=== PATIENT | male | born 1935 | race Caucasian/White ===

== ENCOUNTER 2017-12-11 10:52 | Inpatient (IN) | payer MEDICARE ==
[2017-12-11 11:16] LABS: #Eosinphils 0.1 thou/uL (0.0-0.7); #Lymphocytes 1.8 thou/uL (1.20-3.40); #Monocytes 0.8 thou/uL (0.11-0.59); #Neutrophils 4.8 thou/uL (1.40-6.50); %Basophils 0.4 % (0.0-1.0); %Eosinophils 1.2 % (0.0-10.0); %Lymphocytes 23.9 % (21.0-51.0); %Neutrophils 64.5 % (42.0-75.0); Hemoglobin 12.8 g/dL (14.0-18.0); Mean Corpuscular HGB CONC 34.2 g/dL (32.0-36.0); Mean Corpuscular Hemoglobin 32.4 pg (27.0-31.0); Mean Corpuscular Volume 94.7 fL (78.0-98.0); Mean Platelet Volume 7.8 fL (7.4-10.4); Platelet Count 354 thou/uL (130-400); RBC Distribution Width 13.3 % (11.5-14.5); Red Blood Cell (RBC) Count 3.94 mill/uL (4.70-6.10); White Blood Cell (WBC) Count 7.5 thou/uL (4.8-10.8)
[2017-12-11 11:33] LABS: ALT (SGPT) 12 U/L (8-55); AST (SGOT) 25 U/L (5-34); Albumin 3.8 g/dL (3.4-4.8); Alkaline Phosphatase 61 U/L (40-150); Anion Gap 14 mmol/L (10-20); BUN (Urea Nitrogen) 53 mg/dL (8.4-25.7); Bilirubin, Total 0.9 mg/dL (0.2-1.2); CK (CPK) 24 U/L (30-200); Calc. Creatinine Clearance 0 mL/min (70-130); Calcium 9.4 mg/dL (7.8-10.44); Carbon Dioxide 25 mmol/L (23-31); Chloride 96 mmol/L (98-107); Estimated GFR-MDRD 21; Globulin 4.7 g/dL (2.4-3.5); Glucose 297 mg/dL (83-110); Potassium 4.2 mmol/L (3.5-5.1); Protein, Total 8.5 g/dL (5.8-8.1); Sodium 131 mmol/L (136-145)
[2017-12-11 11:38] LABS: CKMB 0.5 ng/mL (0-6.6); Troponin I 0.011 ng/mL (< 0.028)
--- NOTE | 2017-12-11 13:06 | RAD ---
PORTABLE CHEST 1 VIEW: DATE: 12/11/17. TIME: 10:32 a.m. HISTORY: Dizziness. FINDINGS: Comparison is made with the exam of 05/25/16. Left-sided pacing device remains in place. The heart is enlarged. The lungs are expanded without lo bar consolidation, pneumothoraces, racihd pulmonary edema, or pleural effusions. IMPRESSION: No acute process. POS: ANDRESSA
[2017-12-11] MEDS ORDERED: Ondansetron HCl/PF 4 MG/2 ML Vial IVP PRN ×2 (14:53→16:12)
[2017-12-11] MEDS ORDERED: Sodium Chloride 0.9% 1,000 ML IV SCH (14:53)
[2017-12-11] MEDS ORDERED: Acetaminophen 325 MG TAB PO PRN (14:53)
[2017-12-11] MEDS ORDERED: Ondansetron ODT 4 MG TAB SL PRN (14:53)
[2017-12-11 15:59] VITALS: BMI 32.0
[2017-12-11] MEDS ORDERED: Ondansetron ODT 4 MG TAB PO PRN (16:12)
[2017-12-11] MEDS ORDERED: Dextrose 5% in Water 1,000 ML IV PRN (16:12)
[2017-12-11] MEDS ORDERED: HumaLOG 300 UNITS/3 ML VIAL SC PRN (16:12)
[2017-12-11] MEDS ORDERED: Dextrose 50% Abboject 50 ML SYRINGE SLOW IVP PRN (16:12)
[2017-12-11] MEDS ORDERED: Rivaroxaban 15 MG TAB PO SCH (17:00)
[2017-12-11] MEDS: Sodium Chloride 0.9% 1,000 ML IV SCH (17:08)
[2017-12-11] MEDS: HumaLOG 300 UNITS/3 ML VIAL SC PRN (17:22)
[2017-12-11 19:13] LABS: Bilirubin Negative (Negative); Blood, Urine Negative (Negative); Clarity CLEAR (Clear); Glucose, Urine (Dipstick) 250 mg/dL (Negative); Leukocyte Negative (Negative); Nitrite Negative (Negative); Protein, Urine (Dipstick) Negative (Neg-Trace); Specific Gravity, Urine 1.017 (1.002-1.036)
[2017-12-11] MEDS: Famotidine 20 MG TAB PO SCH (20:25)
[2017-12-11] MEDS: Melatonin 3 MG TAB PO PRN (20:25)
--- NOTE | 2017-12-11 22:52 | HP ---
DATE OF ADMISSION: 12/11/2017 PRIMARY CARE PHYSICIAN: Rey Lo MD CHIEF COMPLAINT: General weakness and dizziness. HISTORY OF PRESENT ILLNESS: This is an 82-year-old, male, who presents to [facility] complaining of approximately 1-2-day history of increasing wea kness, dizziness especially when standing up or attempting to walk. The patient was recently admitte d to [facility] approximately 2 weeks prior to this evaluation for a 6-day stay for dehydrati on, hyperglycemia and weakness. The patient was discharged home on Wellbutrin and Lexapro and contin ued on his regular medications to include Lasix, spironolactone, metoprolol, levothyroxine, and diabe tic medications. The patient states he has had no energy at home, mainly sitting due to lack of inte rest and general weakness. The patient apparently was also discontinued approximately a week prior t o this evaluation on chronic trazodone. The patient and family have related to increased anxiety and difficulty with sleep patterns. The patient denies any rachid falls or head injury. The patient den ied fever, chills, or increased cough. The patient admits to some decreased appetite, but denies any specific known weight changes. The patient admits to some increased sensation of thirst, but denied vomiting or diarrhea. In the emergency room, the patient underwent general evaluation with receivin g intravenous normal saline x500 mL after evidence of orthostatic hypotension and acute on chronic ki dney disease. The patient was referred to the observation unit for further evaluation. PAST MEDICAL HISTORY: 1. Chronic kidney disease, stage 2-3. 2. Cardiomyopathy. 3. Chronic atrial fibrillation, on chronic anticoagulation with Xarelto. 4. Hypertension. 5. Diabetes mellitus type 2, on oral hypoglycemics. 6. Anxiety disorder. 7. History of DVT. 8. History of skin cancer. PAST SURGICAL HISTORY: 1. Status post cardiac ablation x2. 2. Status post cardioversion x2. 3. Status post right carotid endarterectomy 15-20 years prior to this evaluation. 4. Status post left elbow surgery. 5. Status post pacemaker placement. CURRENT MEDICATIONS: 1. Enteric-coated aspirin 81 mg p.o. daily. 2. Lexapro 5 mg p.o. daily. 3. TriLipix 135 mg p.o. daily. 4. Amaryl 4 mg p.o. b.i.d. 5. Levothyroxine 50 mcg p.o. daily. 6. Metoprolol tartrate 100 mg p.o. b.i.d. 7. Multivitamin 1 tab p.o. daily. 8. Actos 45 mg p.o. daily. 9. Xarelto 15 mg p.o. at bedtime. 10. Spironolactone 25 mg p.o. daily. ALLERGIES: No known drug allergies. FAMILY HISTORY: Nephew with seizure disorder. SOCIAL HISTORY: Patient resides in [place], [place]. Accompanied by his . Retired from [employer]. Smoking history, quitting 6 years prior to this evaluation. No alcohol o r illicit drug use. Ambulates with use of a cane or stick. REVIEW OF SYSTEMS: The following complete review of systems was otherwise negative except as stated per HPI: Constitutional: Weight loss or gain, ability to conduct usual activities. Skin: Rash, it precious. Eyes: Double vision, pain. ENT/Mouth: Nose bleeding, neck stiffness, pain, tenderness. Ca rdiovascular: Palpitations, dyspnea on exertion, orthopnea. Respiratory: Shortness of breath, whee zing, cough, hemoptysis, fever or night sweats. Gastrointestinal: Poor appetite, abdominal pain, he artburn, nausea, vomiting, constipation, or diarrhea. Genitourinary: Urgency, frequency, dysuria, n octuria. Musculoskeletal: Pain, swelling. Neurologic/Psychiatric: Anxiety, depression. Allergy/I mmunologic: Skin rash, bleeding tendency. PHYSICAL EXAMINATION: VITAL SIGNS: Currently, blood pressure 107/61, pulse 80, respiratory rate 18, temperature 97.5 degre es Fahrenheit, O2 saturation 98% on room air. GENERAL APPEARANCE: This is an 82-year-old, male, flat affect, alert, responsive, in no ac kotlik distress. HEENT EXAM: Pupils are equal, round, and reactive to light and accommodation. Extraocular muscles a re intact. No scleral icterus. No conjunctival injection. Nares patent. OP is clear. Oral mucosa dry appearing. NECK: Supple, no cervical adenopathy, no thyromegaly, no carotid bruits, no JVD appreciated. Cervic al spine with full active and passive range of motion. CHEST: Lungs are clear to auscultation bilaterally. CARDIOVASCULAR EXAM: S1, S2, without noted murmur, rub or gallop. ABDOMEN: Obese, soft, nontender, nondistended. Bowel sounds are positive in all four quadrants. Th ere is no hepatosplenomegaly. EXTREMITIES: Warm and dry with fair turgor. No clubbing, cyanosis or asymmetric edema appreciated. Pulses palpable distally at the dorsalis pedis, posterior tibial, and popliteal arteries bilaterally . Capillary refill less than 2 seconds. NEUROLOGIC EXAM: Cranial nerves II-XII are grossly intact. No focal or lateralizing signs appreciat ed. The patient is not observed ambulatory during this exam. PERTINENT LABORATORY AND X-RAY FINDINGS: Sodium 131, potassium 4.2, chloride 96, CO2 of 25, BUN 53, creatinine 2.91, estimated GFR of 21, glucose 297, calcium 9.4. LFTs within normal limits. Troponin I negative x1. BNP 721, previously noted 505 on 05/28/2016. CBC showed a white blood cell count of 7.5, hemoglobin 12.8, hematocrit 37, platelet count 354 with normal differential. Portable chest x- ray dated 12/11/2017 showed no acute cardiopulmonary process. EKG dated 12/11/2017 by my interpretat ion shows 100% pacing with ventricular pacing pacemaker. ASSESSMENT AND PLAN: 1. Orthostatic hypotension. We will place in observation status on the telemetry unit. We will con tinue intravenous normal saline 100 mL per hour. Hold all antihypertensive medications. Likely volu me mediated in conjunction with iatrogenic influence. Continue IV fluids as stated previously and re peat orthostatic vital signs in 24 hours. 2. Acute kidney injury. We will avoid nephrotoxic agents and contrast media. Continue IV fluids as outlined in orthostatic hypotension. Repeat creatinine in the a.m. 3. Generalized weakness. Suspect multifactorial. We will obtain physical therapy evaluation for fu nctional assessment and ambulatory status. Check TSH and A1c level in the a.m. 4. Hyponatremia. Appears chronic when compared with prior sodium values dating back to 2017. Also, component of hyperglycemia. We will continue intravenous normal saline and repeat sodium level in t he a.m. 5. Diabetes mellitus type 2, on oral hypoglycemics. We will continue insulin sliding scale for refl exive coverage. Check A1c level. ADA diet. 6. Chronic kidney disease, stage 3. Avoid nephrotoxic agents and contrast media. Continue serial c reatinine monitoring. 7. Bilateral carotid artery disease. We will continue home regimen to include aspirin 81 mg daily. Left carotid with severe stenosis with recommendations for medical management. 8. Prophylaxis. Sequential compression devices while in bed. Pepcid 20 mg p.o. b.i.d. Physical th erapy evaluation in the a.m. 9. Code status: FULL. Surrogate medical decision maker is patient's spouse.
[2017-12-12] MEDS: Sodium Chloride 0.9% 1,000 ML IV SCH ×3 (03:00→12:33)
[2017-12-12 04:43] LABS: Hemoglobin A1c 8.8 % (4.0-6.0)
[2017-12-12 04:44] LABS: Anion Gap 11 mmol/L (10-20); BUN (Urea Nitrogen) 49 mg/dL (8.4-25.7); Calc. Creatinine Clearance 36 mL/min (70-130); Calcium 8.9 mg/dL (7.8-10.44); Carbon Dioxide 26 mmol/L (23-31); Chloride 103 mmol/L (98-107); Estimated GFR-MDRD 26; Glucose 105 mg/dL (83-110); Potassium 4.1 mmol/L (3.5-5.1); Sodium 136 mmol/L (136-145)
[2017-12-12 04:59] LABS: Band 3 % (5-11); Eosinophils 3 % (0-10); Hemoglobin 12.1 g/dL (14.0-18.0); Lymphocytes 17 % (21-51); MDiff Complete? YES; Mean Corpuscular HGB CONC 33.9 g/dL (32.0-36.0); Mean Corpuscular Hemoglobin 32.3 pg (27.0-31.0); Mean Corpuscular Volume 95.4 fL (78.0-98.0); Mean Platelet Volume 7.7 fL (7.4-10.4); Monocytes 11 % (0-10); Neutrophil 66 % (42-75); PLT Morphology Comment Appears Adequate; Platelet Count 287 thou/uL (130-400); RBC Distribution Width 13.3 % (11.5-14.5); Red Blood Cell (RBC) Count 3.75 mill/uL (4.70-6.10); White Blood Cell (WBC) Count 6.4 thou/uL (4.8-10.8)
[2017-12-12] MEDS: Levothyroxine Sodium 50 MCG TAB PO SCH (05:51)
[2017-12-12] MEDS: Aspirin 81 mg Enteric Coated Tablet PO SCH (08:31)
[2017-12-12] MEDS: Multivitamin W/ Minerals 1 TAB PO SCH (08:31)
[2017-12-12] MEDS: Escitalopram Oxalate 10 mg Tablet PO SCH (08:31)
[2017-12-12] MEDS: Fenofibrate Nanocrystallized 145 MG TAB PO SCH (08:31)
[2017-12-12] MEDS: Famotidine 20 MG TAB PO SCH ×2 (08:31→20:59)
[2017-12-12] MEDS: Rivaroxaban 15 MG TAB PO SCH (08:32)
--- NOTE | 2017-12-12 12:03 | PDOC.PN ---
- Subjective Encounter Start Date: 12/12/17 Encounter Start Time: 11:45 Subjective: f/u for SRINI, dehydration, gen weakness and orthostatic hypotension. -: Feeling better today. Appetite improved. No SOB. - Objective Resuscitation Status: Resuscitation Status FULL:Full Resuscitation MAR Reviewed: Yes Vital Signs & Weight: Vital Signs (12 hours) Temp Pulse Resp BP BP BP BP 12/12/17 08:00 97.2 F L 80 18 147/70 H 126/64 152/66 H 12/12/17 07:26 97.8 F 80 16 12/12/17 03:00 97.8 F 80 16 129/73 Pulse Ox 12/12/17 08:00 97 12/12/17 07:26 12/12/17 03:00 94 L Weight Weight 237 lb 8 oz I&O: 12/11/17 12/12/17 12/13/17 06:59 06:59 06:59 Intake Total 1340 500 Output Total 790 125 Balance 550 375 Result Diagrams: 12/12/17 04:11 12/13/17 05:28 Additional Labs: Accuchecks 12/12/17 12/11/17 12/11/17 10:28 21:03 16:47 POC Glucose 236 H 145 H 249 H Laboratory Tests 12/11/17 12/11/17 12/12/17 11:00 11:00 04:11 Hgb 12.8 L Creatinine 2.91 H Hemoglobin A1c TSH 3rd Generation 2.5677 12/12/17 04:11 Hgb Creatinine Hemoglobin A1c 8.8 H TSH 3rd Generation EKG Reviewed by me: Yes (Tele - V-paced in 80's) Phys Exam - Physical Examination Constitutional: NAD HEENT: PERRLA, sclera anicteric, oral pharynx no lesions Neck: no nodes, no JVD, supple, full ROM Respiratory: no wheezing, no rales, no rhonchi, clear to auscultation bilateral S1, S2 Cardiovascular: RRR, no rub, gallop Gastrointestinal: soft, non-tender, no distention, positive bowel sounds Musculoskeletal: no edema, pulses present Neurological: normal sensation, moves all 4 limbs flat affect Psychiatric: A&O x 3 Skin: no rash, normal turgor, cap refill <2 seconds Dx/Plan (1) SRINI (acute kidney injury) Code(s): N17.9 - ACUTE KIDNEY FAILURE, UNSPECIFIED Status: Acute Comment: Slow improvement with IVF's, continue IVF's another 24-48, avoid nephrotoxic meds and limit contrast exposure (2) Orthostatic hypotension Code(s): I95.1 - ORTHOSTATIC HYPOTENSION Status: Acute Comment: Secondary to dehydation and volume depletion, serial monitoring (3) Generalized weakness Code(s): R53.1 - WEAKNESS Status: Chronic Comment: PT evaluation for functional assessment (4) Hyponatremia Code(s): E87.1 - HYPO-OSMOLALITY AND HYPONATREMIA Status: Acute Comment: Improved, serial Na+ monitoring (5) DM2 (diabetes mellitus, type 2) Status: Chronic Qualifiers: Diabetes mellitus complication status: with hyperglycemia Comment: A1C 8.8, ISS, hold oral hypoglycemics - Plan plan discussed w/ family, PT/OT, director of social services, out of bed/ambulate, DVT proph w/SCDs Stable currently -: Continue IVF's 75ml/h -: PT evaluation for functional assessment -: Rehab screening -: Convert to inpt status due to SRINI * AM lab: BMP
[2017-12-12] MEDS: HumaLOG 300 UNITS/3 ML VIAL SC PRN (13:17)
[2017-12-12] MEDS ORDERED: Sodium Chloride 0.9% 10 ML ONE (20:40)
[2017-12-12] MEDS: Acetaminophen 500 MG TAB PO PRN (20:59)
[2017-12-12] MEDS: Melatonin 3 MG TAB PO PRN (20:59)
[2017-12-13] MEDS: Sodium Chloride 0.9% 1,000 ML IV SCH (00:59)
[2017-12-13] MEDS: Levothyroxine Sodium 50 MCG TAB PO SCH (05:41)
[2017-12-13 06:11] LABS: Anion Gap 11 mmol/L (10-20); BUN (Urea Nitrogen) 40 mg/dL (8.4-25.7); Calc. Creatinine Clearance 46 mL/min (70-130); Carbon Dioxide 23 mmol/L (23-31); Chloride 104 mmol/L (98-107); Estimated GFR-MDRD 34; Glucose 152 mg/dL (83-110); Potassium 4.1 mmol/L (3.5-5.1); Sodium 134 mmol/L (136-145)
[2017-12-13] MEDS: Rivaroxaban 15 MG TAB PO SCH (08:51)
[2017-12-13] MEDS: Escitalopram Oxalate 10 mg Tablet PO SCH (08:51)
[2017-12-13] MEDS: Fenofibrate Nanocrystallized 145 MG TAB PO SCH (08:51)
[2017-12-13] MEDS: Aspirin 81 mg Enteric Coated Tablet PO SCH (08:52)
[2017-12-13] MEDS: Famotidine 20 MG TAB PO SCH (08:52)
[2017-12-13] MEDS: Multivitamin W/ Minerals 1 TAB PO SCH (08:52)
[2017-12-13] MEDS: Acetaminophen 500 MG TAB PO PRN (08:54)
[2017-12-13] MEDS ORDERED: Sodium Chloride 0.9% 1,000 ML IV SCH (11:09)
--- NOTE | 2017-12-13 11:27 | PDOC.PN ---
- Subjective Encounter Start Date: 12/13/17 Encounter Start Time: 11:20 Subjective: f/u for dehydration, SRINI and weakness. Overall feeling much better -: and appetite improved. No lightheadedness. - Objective Resuscitation Status: Resuscitation Status FULL:Full Resuscitation MAR Reviewed: Yes Vital Signs & Weight: Vital Signs (12 hours) Temp Pulse Resp BP Pulse Ox 12/13/17 08:50 97.5 F L 84 18 155/77 H 95 12/13/17 08:00 97.5 F L 84 18 95 12/13/17 04:25 97.6 F 80 20 162/75 H 94 L Weight Weight 242 lb 8 oz I&O: 12/12/17 12/13/17 12/14/17 06:59 06:59 06:59 Intake Total 1340 3323 Output Total 790 875 Balance 550 2448 Result Diagrams: 12/12/17 04:11 12/13/17 05:28 Additional Labs: Accuchecks 12/13/17 12/13/17 12/12/17 11:04 05:19 21:08 POC Glucose 255 H 140 H 220 H 12/12/17 15:47 POC Glucose 203 H Laboratory Tests 12/11/17 12/11/17 12/12/17 11:00 11:00 04:11 Hgb 12.8 L Creatinine 2.91 H Hemoglobin A1c TSH 3rd Generation 2.5677 12/12/17 04:11 Hgb Creatinine Hemoglobin A1c 8.8 H TSH 3rd Generation EKG Reviewed by me: Yes (Tele - V-paced) Phys Exam - Physical Examination Constitutional: NAD HEENT: PERRLA, sclera anicteric, oral pharynx no lesions Neck: no nodes, no JVD, supple, full ROM Respiratory: no wheezing, no rales, no rhonchi, clear to auscultation bilateral S1, S2 Cardiovascular: RRR, no significant murmur, no rub, gallop Gastrointestinal: soft, non-tender, no distention, positive bowel sounds Musculoskeletal: no edema, pulses present Neurological: normal sensation, moves all 4 limbs Psychiatric: A&O x 3 Skin: no rash, normal turgor, cap refill <2 seconds Dx/Plan (1) SRINI (acute kidney injury) Code(s): N17.9 - ACUTE KIDNEY FAILURE, UNSPECIFIED Status: Acute Comment: Resolving, saline lock IVF, avoid nephrotoxic meds and limit contrast exposure (2) Orthostatic hypotension Code(s): I95.1 - ORTHOSTATIC HYPOTENSION Status: Acute Comment: Secondary to dehydation and volume depletion, serial monitoring, improved (3) Generalized weakness Code(s): R53.1 - WEAKNESS Status: Chronic Comment: PT evaluation for functional assessment (4) Hyponatremia Code(s): E87.1 - HYPO-OSMOLALITY AND HYPONATREMIA Status: Acute Comment: Improved, serial Na+ monitoring (5) DM2 (diabetes mellitus, type 2) Status: Chronic Qualifiers: Diabetes mellitus complication status: with hyperglycemia Comment: A1C 8.8, ISS, resume oral hypoglycemics - Plan plan discussed w/ family, PT/OT, oncology social work, out of bed/ambulate, DVT proph w/SCDs Stable overall -: Saline lock IVF -: OOB/ambulate -: Resume home oral hypoglycemics -: CM for SNF options * AM lab: BMP * Edilson d/c in 24h
[2017-12-13] MEDS: HumaLOG 300 UNITS/3 ML VIAL SC PRN ×2 (11:59→17:19)
[2017-12-14] MEDS: Melatonin 3 MG TAB PO PRN ×2 (01:24→20:04)
[2017-12-14] MEDS: Acetaminophen 500 MG TAB PO PRN ×3 (01:24→20:04)
[2017-12-14] MEDS: Levothyroxine Sodium 50 MCG TAB PO SCH (05:47)
[2017-12-14 06:28] LABS: Anion Gap 9 mmol/L (10-20); BUN (Urea Nitrogen) 31 mg/dL (8.4-25.7); Calc. Creatinine Clearance 53 mL/min (70-130); Calcium 8.9 mg/dL (7.8-10.44); Carbon Dioxide 23 mmol/L (23-31); Chloride 106 mmol/L (98-107); Estimated GFR-MDRD 39; Glucose 123 mg/dL (83-110); Sodium 134 mmol/L (136-145)
[2017-12-14] MEDS: Multivitamin W/ Minerals 1 TAB PO SCH (09:22)
[2017-12-14] MEDS: Aspirin 81 mg Enteric Coated Tablet PO SCH (09:22)
[2017-12-14] MEDS: Fenofibrate Nanocrystallized 145 MG TAB PO SCH (09:22)
[2017-12-14] MEDS: Escitalopram Oxalate 10 mg Tablet PO SCH (09:23)
[2017-12-14] MEDS: Rivaroxaban 15 MG TAB PO SCH (09:24)
[2017-12-14] MEDS: Famotidine 20 MG TAB PO SCH (11:21)
--- NOTE | 2017-12-14 16:28 | PDOC.PN ---
- Subjective Encounter Start Date: 12/14/17 Encounter Start Time: 15:05 Subjective: f/u for SRINI, dehydration, weakness. Feeling stronger, better appetite. -: Ambulated with PT in hallways. - Objective Resuscitation Status: Resuscitation Status FULL:Full Resuscitation MAR Reviewed: Yes Vital Signs & Weight: Vital Signs (12 hours) Temp Pulse Resp Pulse Ox 12/14/17 08:10 97.9 F 86 18 97 Weight Weight 246 lb 12.8 oz I&O: 12/13/17 12/14/17 12/15/17 06:59 06:59 06:59 Intake Total 3323 1290 Output Total 875 Balance 2448 1290 Result Diagrams: 12/12/17 04:11 12/14/17 05:47 Additional Labs: Accuchecks 12/14/17 12/14/17 12/13/17 10:56 05:47 20:45 POC Glucose 238 H 117 H 181 H 12/13/17 16:53 POC Glucose 221 H Laboratory Tests 12/11/17 12/11/17 12/12/17 11:00 11:00 04:11 Hgb 12.8 L Creatinine 2.91 H Hemoglobin A1c TSH 3rd Generation 2.5677 12/12/17 04:11 Hgb Creatinine Hemoglobin A1c 8.8 H TSH 3rd Generation EKG Reviewed by me: Yes (Tele - V-paced) Phys Exam - Physical Examination Constitutional: NAD HEENT: PERRLA, sclera anicteric, oral pharynx no lesions Neck: no nodes, no JVD, supple, full ROM Respiratory: no wheezing, no rales, no rhonchi, clear to auscultation bilateral Cardiovascular: RRR, no significant murmur, no rub, gallop Gastrointestinal: soft, non-tender, no distention, positive bowel sounds Musculoskeletal: no edema, pulses present Neurological: normal sensation, moves all 4 limbs Psychiatric: A&O x 3 Skin: no rash, normal turgor, cap refill <2 seconds Dx/Plan (1) SRINI (acute kidney injury) Code(s): N17.9 - ACUTE KIDNEY FAILURE, UNSPECIFIED Status: Acute Comment: Resolving, saline lock IVF, avoid nephrotoxic meds and limit contrast exposure (2) Orthostatic hypotension Code(s): I95.1 - ORTHOSTATIC HYPOTENSION Status: Acute Comment: Secondary to dehydation and volume depletion, serial monitoring, improved (3) Generalized weakness Code(s): R53.1 - WEAKNESS Status: Chronic Comment: PT evaluation for functional assessment (4) Hyponatremia Code(s): E87.1 - HYPO-OSMOLALITY AND HYPONATREMIA Status: Acute Comment: Improved, serial Na+ monitoring (5) DM2 (diabetes mellitus, type 2) Status: Chronic Qualifiers: Diabetes mellitus complication status: with hyperglycemia Comment: A1C 8.8, ISS, resume oral hypoglycemics - Plan plan discussed w/ family, PT/OT, adoption social worker, out of bed/ambulate, DVT proph w/SCDs Stable overall -: OOB/ambulate with PT -: Continue Levothyroxine -: CM assisting with SNF option in [place] -: Continue Xarelto * Likely d/c to SNF in 24h
[2017-12-14] MEDS: HumaLOG 300 UNITS/3 ML VIAL SC PRN (18:29)
[2017-12-15 05:41] LABS: Hemoglobin 11.8 g/dL (14.0-18.0); Platelet Count 231 thou/uL (130-400)
[2017-12-15] MEDS: Levothyroxine Sodium 50 MCG TAB PO SCH (06:00)
[2017-12-15] MEDS: Rivaroxaban 15 MG TAB PO SCH (08:07)
[2017-12-15] MEDS: Famotidine 20 MG TAB PO SCH (08:07)
[2017-12-15] MEDS: Fenofibrate Nanocrystallized 145 MG TAB PO SCH (08:07)
[2017-12-15] MEDS: Escitalopram Oxalate 10 mg Tablet PO SCH (08:07)
[2017-12-15] MEDS: Aspirin 81 mg Enteric Coated Tablet PO SCH (08:07)
[2017-12-15] MEDS: Multivitamin W/ Minerals 1 TAB PO SCH (08:07)
[2017-12-15] MEDS ORDERED: Loperamide HCl 2 MG CAP PO PRN (08:32)
[2017-12-15] MEDS ORDERED: Mag-Al 1200 mg/1200 mg/30 ML UDCUP PO PRN (08:32)
[2017-12-15] MEDS ORDERED: Milk Of Magnesia 30 ML UDCUP PO PRN (08:32)
[2017-12-15] MEDS ORDERED: HYDROcodone/Acetaminophen 5/325 mg Tablet PO PRN (08:32)
[2017-12-15] MEDS ORDERED: Sodium Chloride 0.65% Nasal 44 ML BOT EA NARE PRN (08:32)
[2017-12-15] MEDS ORDERED: Diabetic Tussin 200 MG/10 ML UDCUP PO PRN (08:32)
[2017-12-15] MEDS ORDERED: Eucerin (Mineral Oil/Petrolatum,White) 30 gm Jar TOP PRN (08:32)
[2017-12-15] MEDS ORDERED: Temazepam 15 MG CAP PO PRN (08:32)
[2017-12-15] MEDS ORDERED: Bisacodyl 10 MG SUPP PR PRN (08:32)
[2017-12-15] MEDS ORDERED: Senokot 8.6 MG TAB PO PRN (08:32)
[2017-12-15] MEDS ORDERED: Loratadine 10 MG TAB PO PRN (08:32)
[2017-12-15] MEDS ORDERED: hydrALAZINE 20 MG/ML VIAL SLOW IVP PRN (08:32)
[2017-12-15] MEDS ORDERED: Artificial Tears 18 DROP/0.9 ML EA EYE PRN (08:32)
[2017-12-15] MEDS ORDERED: Chloraseptic Spray 180 ml Bottle PO PRN (08:32)
[2017-12-15] MEDS ORDERED: Metoprolol Tartrate 100 MG TAB PO SCH (09:00)
--- NOTE | 2017-12-15 11:17 | PDOC.PN ---
- Subjective Encounter Start Date: 12/15/17 Encounter Start Time: 08:00 -: old records requested/rev Patient seen and examined. No new complaints. No overnight events - Objective Resuscitation Status: Resuscitation Status FULL:Full Resuscitation MAR Reviewed: Yes Vital Signs & Weight: Vital Signs (12 hours) Temp Pulse Resp BP BP Pulse Ox 12/15/17 08:03 98.1 F 80 18 156/73 H 96 12/15/17 04:00 97.6 F 89 18 133/63 97 Weight Weight 243 lb 4.8 oz I&O: 12/14/17 12/15/17 12/16/17 06:59 06:59 06:59 Intake Total 1290 480 Balance 1290 480 Result Diagrams: 12/15/17 05:26 12/15/17 05:26 Additional Labs: Accuchecks 12/15/17 12/14/17 12/14/17 05:46 21:00 17:00 POC Glucose 128 H 186 H 326 H EKG Reviewed by me: Yes Phys Exam - Physical Examination Constitutional: NAD HEENT: PERRLA, moist MMs, sclera anicteric Neck: no JVD, supple Respiratory: no wheezing, no rales, no rhonchi Cardiovascular: RRR, no significant murmur, no rub Gastrointestinal: soft, non-tender, no distention, positive bowel sounds Musculoskeletal: no edema, pulses present Neurological: non-focal, normal sensation, moves all 4 limbs Lymphatic: no nodes Psychiatric: normal affect, A&O x 3 Skin: no rash, normal turgor Dx/Plan (1) Acute worsening of stage 3 chronic kidney disease Code(s): N18.3 - CHRONIC KIDNEY DISEASE, STAGE 3 (MODERATE) Status: Acute (2) Hyponatremia Code(s): E87.1 - HYPO-OSMOLALITY AND HYPONATREMIA Status: Acute Comment: (3) Orthostatic hypotension Code(s): I95.1 - ORTHOSTATIC HYPOTENSION Status: Acute Comment: Secondary to dehydation and volume depletion, serial monitoring, improved (4) Anxiety and depression Code(s): F41.9 - ANXIETY DISORDER, UNSPECIFIED; F32.9 - MAJOR DEPRESSIVE DISORDER, SINGLE EPISODE, UNSPECIFIED Status: Chronic (5) Carotid arterial disease Code(s): I77.9 - DISORDER OF ARTERIES AND ARTERIOLES, UNSPECIFIED Status: Chronic Qualifiers: Laterality: bilateral Qualified Code(s): I77.9 - Disorder of arteries and arterioles, unspecified Comment: s/p Left CEA (6) Chronic anticoagulation Code(s): Z79.01 - USP (CURRENT) USE OF ANTICOAGULANTS Status: Chronic (7) DM2 (diabetes mellitus, type 2) Status: Chronic Qualifiers: Diabetes mellitus complication status: with hyperglycemia Comment: A1C 8.8, ISS, resume oral hypoglycemics (8) Generalized weakness Code(s): R53.1 - WEAKNESS Status: Chronic Comment: (9) H/O cardiac arrhythmia Code(s): Z86.79 - PERSONAL HISTORY OF OTHER DISEASES OF THE CIRCULATORY SYSTEM Status: Chronic Comment: s/p Ablation and PPM in the past.Marketing Program Manager is Dr. nolan (10) H/O cardiac pacemaker Code(s): Z95.0 - PRESENCE OF CARDIAC PACEMAKER Status: Chronic (11) HLD (hyperlipidemia) Code(s): E78.5 - HYPERLIPIDEMIA, UNSPECIFIED Status: Chronic (12) HTN (hypertension) Code(s): I10 - ESSENTIAL (PRIMARY) HYPERTENSION Status: Chronic Qualifiers: Hypertension type: essential hypertension Qualified Code(s): I10 - Essential (primary) hypertension (13) Hypothyroidism Code(s): E03.9 - HYPOTHYROIDISM, UNSPECIFIED Status: Chronic (14) Liver cirrhosis, alcoholic Code(s): K70.30 - ALCOHOLIC CIRRHOSIS OF LIVER WITHOUT ASCITES Status: Chronic Qualifiers: Ascites presence: without ascites Qualified Code(s): K70.30 - Alcoholic cirrhosis of liver without ascites (15) Moderate tricuspid regurgitation by prior echocardiogram Code(s): I07.1 - RHEUMATIC TRICUSPID INSUFFICIENCY Status: Chronic (16) Obesity (BMI 30.0-34.9) Code(s): E66.9 - OBESITY, UNSPECIFIED Status: Chronic (17) Pulmonary hypertension, moderate to severe Code(s): I27.20 - PULMONARY HYPERTENSION, UNSPECIFIED Status: Chronic (18) Stage C chronic diastolic congestive heart failure Code(s): I50.32 - CHRONIC DIASTOLIC (CONGESTIVE) HEART FAILURE Status: Chronic - Plan cont current plan of care, plan discussed w/ family, PT/OT, social sciences chair * continue following medication * symptomatic treatment as below * stable medically * await placement * discussed with daughter bedside. * start glimipiride and metoprolol today Review of Systems - Review of Systems Eyes: negative: Pain, Vision Change, Conjunctivae Inflammation, Eyelid Inflammation, Redness, Other ENT: negative: Ear Pain, Ear Discharge, Nose Pain, Nose Discharge, Nose Congestion, Mouth Pain, Mouth Swelling, Throat Pain, Throat Swelling, Other Respiratory: negative: Cough, Dry, Shortness of Breath, Hemoptysis, SOB with Excertion, Pleuritic Pain, Sputum, Wheezing Cardiovascular: negative: chest pain, palpitations, orthopnea, paroxysmal nocturnal dyspnea, edema, light headedness, other Gastrointestinal: negative: Nausea, Vomiting, Abdominal Pain, Diarrhea, Constipation, Melena, Hematochezia, Other Genitourinary: negative: Dysuria, Frequency, Incontinence, Hematuria, Retention , Other Musculoskeletal: negative: Neck Pain, Shoulder Pain, Arm Pain, Back Pain, Hand Pain, Leg Pain, Foot Pain, Other Skin: negative: Rash, Lesions, Shahbaz, Bruising, Other - Medications/Allergies Allergies/Adverse Reactions: Allergies Allergy/AdvReac Type Severity Reaction Status Date / Time No Known Allergies Allergy Verified 05/22/16 01:15 Medications: Current Medications Acetaminophen (Tylenol) 1,000 mg PO Q6H PRN PRN Reason: Headache/Fever or Mild Pain Last Admin: 12/14/17 20:04 Dose: 1,000 mg Hydrocodone Bitart/Acetaminophen ([place] 5/325) 1 tab PO Q4H PRN PRN Reason: Moderate Pain (4-6) Al Hydroxide/Mg Hydroxide (Maalox) 15 ml PO Q4H PRN PRN Reason: Heartburn or Indigestion Artificial Tears (Tears Naturale) 0 drop EA EYE PRN PRN PRN Reason: Dry Eyes Aspirin (Ecotrin) 81 mg PO DAILY [facility] Last Admin: 12/15/17 08:07 Dose: 81 mg Bisacodyl (Dulcolax) 10 mg MT DAILYPRN PRN PRN Reason: Constipation Dextrose/Water (Dextrose 50%) 25 gm SLOW IVP PRN PRN PRN Reason: Hypoglycemia Escitalopram Oxalate (Lexapro) 5 mg PO DAILY [facility] Last Admin: 12/15/17 08:07 Dose: 5 mg Famotidine (Pepcid) 20 mg PO 0900 [facility] Last Admin: 12/15/17 08:07 Dose: 20 mg Fenofibrate (Tricor) 145 mg PO DAILY [facility] Last Admin: 12/15/17 08:07 Dose: 145 mg Glimepiride (Amaryl) 4 mg PO QAM[facility] Glucagon (Glucagon) 1 mg IM PRN PRN PRN Reason: Hypoglycemia Guaifenesin (Robitussin Sf) 200 mg PO Q4H PRN PRN Reason: Cough Hydralazine HCl (Apresoline) 10 mg SLOW IVP Q4H PRN PRN Reason: Systolic BP > 180 Dextrose/Water (D5w) 1,000 mls @ 0 mls/hr IV .Q0M PRN PRN Reason: Hypoglycemia Insulin Human Lispro (Humalog) 0 units SC .MILD SLIDING SCALE PRN PRN Reason: Mild Correctional Scale Last Admin: 12/14/17 18:29 Dose: 5 unit Insulin Human Lispro (Humalog) 0 units SC .BEDTIME SLIDING SC PRN PRN Reason: Bedtime Correctional Scale Last Admin: 12/12/17 21:19 Dose: 2 unit Iron/Minerals/Multivitamins (Theragran M) 1 tab PO DAILY [facility] Last Admin: 12/15/17 08:07 Dose: 1 tab Levothyroxine Sodium (Synthroid) 50 mcg PO 0600 [facility] Last Admin: 12/15/17 06:00 Dose: 50 mcg Loperamide HCl (Imodium) 2 mg PO PRN PRN PRN Reason: Diarrhea/Loose Stools Loratadine (Claritin) 10 mg PO DAILYPRN PRN PRN Reason: Sinus Symptoms Magnesium Hydroxide (Milk Of Magnesium) 30 ml PO DAILYPRN PRN PRN Reason: Constipation Melatonin (Melatonin) 3 mg PO HSPRN PRN PRN Reason: Insomnia Last Admin: 12/14/17 20:04 Dose: 3 mg Metoprolol Tartrate (Lopressor) 100 mg PO BID [facility] Last Admin: 12/15/17 08:54 Dose: 100 mg Mineral Oil/White Petrolatum (Eucerin Cream) 0 gm TOP BIDPRN PRN PRN Reason: Dry Skin Ondansetron HCl (Zofran Odt) 4 mg PO Q6H PRN PRN Reason: Nausea/Vomiting Ondansetron HCl (Zofran) 4 mg IVP Q6H PRN PRN Reason: Nausea/Vomiting Phenol (Chloraseptic [place] 180 Ml Bot) 0 ml PO PRN PRN PRN Reason: Sore Throat Rivaroxaban (Xarelto) 15 mg PO 0900 [facility] Last Admin: 12/15/17 08:07 Dose: 15 mg Senna (Senokot) 2 tab PO HSPRN PRN PRN Reason: Constipation Sodium Chloride ([place] Nasal [place] 0.65%) 0 ml EA NARE QIDPRN PRN PRN Reason: Nasal Congestion Sodium Chloride (Flush - Normal Saline) 10 ml IVF Q12HR [facility] Last Admin: 12/15/17 08:55 Dose: 10 ml Sodium Chloride (Flush - Normal Saline) 10 ml IVF PRN PRN PRN Reason: Saline Flush Temazepam (Restoril) 15 mg PO HSPRN PRN PRN Reason: Insomnia
[2017-12-15] MEDS: HumaLOG 300 UNITS/3 ML VIAL SC PRN (11:51)
[2017-12-15 11:55] VITALS: TEMP 97.7
[2017-12-15 16:01] VITALS: BP 145/69
--- NOTE | 2017-12-15 17:44 | DIS ---
DATE OF ADMISSION: 12/12/2017 DATE OF DISCHARGE: 12/15/2017 PRIMARY CARE PHYSICIAN: Rey Lo MD DISCHARGE DISPOSITION: Home with home with home health. PRIMARY DISCHARGE DIAGNOSES: 1. Acute on chronic kidney failure, baseline chronic kidney disease stage 3. 2. Hyponatremia. 3. Orthostatic hypotension. SECONDARY DISCHARGE DIAGNOSES: Anxiety and depression, carotid artery disease with carotid endartere ctomy, chronic anticoagulation with Xarelto, diabetes type 2, history of cardiac arrhythmia, history of cardiac pacemaker, hypertension, dyslipidemia, hypothyroidism, moderate tricuspid regurgitation, o besity with BMI 33, moderate pulmonary hypertension, chronic diastolic congestive heart failure stage C. PRIMARY PROCEDURE/OPERATION: None. RADIOLOGICAL INVESTIGATION: A chest x-ray which was unremarkable. SIGNIFICANT LABORATORY DATA: Hemoglobin 6.4, hemoglobin 11.8, platelet 231. Sodium 134, potassium 4 .0, BUN 31, creatinine 1.51, calcium 8.9, AST 25, ALT 12, alkaline phosphatase 61. Cardiac enzymes n egative. BNP 721. Urinalysis normal. DISCHARGE MEDICATIONS: Aspirin 81 mg p.o. daily, Lexapro 5 mg p.o. daily, Trilipix 135 mg p.o. daily , Levoxyl 50 mcg p.o. daily, Lopressor 100 mg p.o. b.i.d., Centrum Silver 1 tablet p.o. daily, Actos 45 mg p.o. daily, Xarelto 15 mg p.o. daily, Amaryl 4 mg p.o. daily. CONTRAINDICATIONS: None. CODE STATUS: FULL CODE. INPATIENT CONSULTANTS: None. ALLERGIES: No known drug allergy. DISCHARGE PLAN: Post hospital, the patient is planned for discharge to home with home health. Subse quently, the patient will follow up with primary care physician. HOSPITAL COURSE: An 82-year-old male with above-mentioned medical problem who was admitted by Dr. Iram thomas on 12/11/2017. Please see his H&P for further detail. This patient presented to emergency room w ith generalized weakness and dizziness. The patient clinically appeared dehydrated. He had acute on chronic kidney failure. He was given gentle IV fluid and his renal function improved towards normal . The patient's home medication was continued while in hospital. The patient required orthopedic physical therapist apy, occupational therapy while in hospital, Initially, he was very weak and he was needing placemen t and that is why with help of rn case manager hospice, we were arranging [facility] home. His insurance d eclined his placement. By the the end of discharge, the patient was already doing very well. He wal ked with physical therapy today about 220 feet. His renal function is also back to baseline. His vital signs are stable. He is on room air. The patient is seen and examined at bedside today. I have reviewed old record. I have spoken with t he family member and updated the plan. I have spoken with the rn case manager hospice about his discharge plann ing. Discharge medication reconciliation done. All new medication prescription sent to his pharmacy . Only we made changes glimepiride changed to once a daily rather than twice daily. Rest of medicat ion was continued as per previous. The patient is seen and examined at bedside today. Please see my progress note from today for furthe r details. Total time spent on discharge day 31 minutes.
[2017-12-16] MEDS ORDERED: Glimepiride 4 MG TAB PO SCH (08:00)
== END 2017-12-15 18:09 | disposition home health service (06) | DRG 683 ==
LOC: ERS 10:52 → 2SW 13:19 → OBSVTOIN 12-12 12:00 → 2NO 12-12 19:38
PROVIDERS: ADMIT Family Medicine; ATTEND Family Medicine
DX: N17.9 Acute kidney failure, unspecified (principal); E87.1 Hypo-osmolality and hyponatremia; I13.0 Hypertensive heart and chronic kidney disease with heart failure and stage 1 through stage 4 chronic kidney disease, or unspecified chronic kidney disease; I50.32 Chronic diastolic (congestive) heart failure; E11.22 Type 2 diabetes mellitus with diabetic chronic kidney disease; E11.65 Type 2 diabetes mellitus with hyperglycemia; E11.9 Type 2 diabetes mellitus without complications; I95.1 Orthostatic hypotension; F41.9 Anxiety disorder, unspecified; F32.9 Major depressive disorder, single episode, unspecified; E78.5 Hyperlipidemia, unspecified; E03.9 Hypothyroidism, unspecified; N18.3 Chronic kidney disease, stage 3 (moderate); I07.1 Rheumatic tricuspid insufficiency; I27.20 Pulmonary hypertension, unspecified; E86.0 Dehydration; E66.9 Obesity, unspecified; Z68.33 Body mass index [BMI] 33.0-33.9, adult; Z79.84 Long term (current) use of oral hypoglycemic drugs; Z79.82 Long term (current) use of aspirin; Z79.01 Long term (current) use of anticoagulants; Z79.899 Other long term (current) drug therapy; Z95.0 Presence of cardiac pacemaker
CPT/HCPCS: 36415; 36416; 71045; 80048; 80053; 81003; 82550; 82553; 82565; 83036; 83880; 84443; 84484; 85007; 85014; 85018; 85025; 85027; 85049; 93005; 96360; A4216; G8978-GP-CI; G8979-GP-CI; G8980-GP-CI; G8987-GO-CI; G8988-GO-CI; G8989-GO-CI

== ENCOUNTER 2018-01-11 10:06 | Outpatient (CLI) | payer MEDICARE ==
--- NOTE | 2018-01-11 12:12 | RAD ---
CHEST TWO VIEWS: History: Dyspnea. Comparison: 12-11-17 FINDINGS: Left sided transvenous pacemaker with leads positioned in the right atrium, right ventricle, and tierra nary sinus. There is atherosclerosis of the aorta. Heart is enlarged. The pulmonary vessels are withi n normal limits. Costophrenic angles are clear. No masses or consolidation. No pneumothorax or osseo us abnormalities. IMPRESSION: 1. No acute cardiopulmonary process. 2. Atherosclerosis. POS: ANDRESSA
== END 2018-01-11 10:07 | disposition home or self-care (01) ==
LOC: RAD 10:06
PROVIDERS: ATTEND Internal Medicine
DX: R06.00 Dyspnea, unspecified (principal); I70.0 Atherosclerosis of aorta
CPT/HCPCS: 71046

== ENCOUNTER 2018-01-19 13:25 | Outpatient (CLI) | payer MEDICARE | END 2018-01-19 13:26 | disposition home or self-care (01) | LOC: CP 13:25 | PROVIDERS: ATTEND Internal Medicine | DX: R06.09 Other forms of dyspnea (principal) | CPT/HCPCS: 94060; 94727; 94729 ==

== ENCOUNTER 2018-02-02 20:30 | Outpatient (CLI) | payer MEDICARE | END 2018-02-02 20:31 | disposition home or self-care (01) | LOC: SLEEPLAB 20:30 | PROVIDERS: ATTEND Internal Medicine | DX: G47.33 Obstructive sleep apnea (adult) (pediatric) (principal); R51 Headache; K21.9 Gastro-esophageal reflux disease without esophagitis; R06.83 Snoring; R35.1 Nocturia; I10 Essential (primary) hypertension; E11.9 Type 2 diabetes mellitus without complications; E66.9 Obesity, unspecified; Z68.32 Body mass index [BMI] 32.0-32.9, adult | CPT/HCPCS: 95811 ==

== ENCOUNTER 2018-04-03 17:52 | Inpatient (IN) | payer MEDICARE ==
--- NOTE | 2018-04-03 20:27 | RAD ---
PORTABLE CHEST: History: Dyspnea. Comparison: 12-11-17 FINDINGS: Mild cardiomegaly. Dual-lead pacemaker device is unchanged. Lungs show no infiltrate or vascular radha estion. IMPRESSION: No evidence of acute process or interval change. POS: ANNE
[2018-04-03 20:29] LABS: #Eosinphils 0.2 thou/uL (0.0-0.7); #Lymphocytes 1.2 thou/uL (1.20-3.40); #Monocytes 0.6 thou/uL (0.11-0.59); %Basophils 0.7 % (0.0-1.0); %Eosinophils 2.7 % (0.0-10.0); %Lymphocytes 19.7 % (21.0-51.0); %Monocytes 9.6 % (0.0-10.0); %Neutrophils 67.4 % (42.0-75.0); Hemoglobin 8.4 g/dL (14.0-18.0); Mean Corpuscular HGB CONC 34.4 g/dL (32.0-36.0); Mean Corpuscular Hemoglobin 33.5 pg (27.0-31.0); Mean Corpuscular Volume 97.5 fL (78.0-98.0); Mean Platelet Volume 8.7 fL (7.4-10.4); Platelet Count 255 thou/uL (130-400); Red Blood Cell (RBC) Count 2.49 mill/uL (4.70-6.10); White Blood Cell (WBC) Count 5.9 thou/uL (4.8-10.8)
[2018-04-03 20:50] LABS: ALT (SGPT) 7 U/L (8-55); AST (SGOT) 14 U/L (5-34); Albumin 3.4 g/dL (3.4-4.8); Alkaline Phosphatase 55 U/L (40-150); Anion Gap 11 mmol/L (10-20); BUN (Urea Nitrogen) 51 mg/dL (8.4-25.7); Bilirubin, Total 0.5 mg/dL (0.2-1.2); CK (CPK) 34 U/L (30-200); Calc. Creatinine Clearance 0 mL/min (70-130); Calcium 8.7 mg/dL (7.8-10.44); Carbon Dioxide 25 mmol/L (23-31); Chloride 102 mmol/L (98-107); Estimated GFR-MDRD 27; Globulin 3.3 g/dL (2.4-3.5); Glucose 257 mg/dL (83-110); Lipase 18 U/L (8-78); Potassium 4.1 mmol/L (3.5-5.1); Protein, Total 6.7 g/dL (5.8-8.1); Sodium 134 mmol/L (136-145)
[2018-04-03 20:53] LABS: CKMB 1.2 ng/mL (0-6.6)
[2018-04-03] MEDS ORDERED: Furosemide 40 MG/4 ML VIAL ONE (21:23)
[2018-04-03] MEDS ORDERED: Nitroglycerin 2% Ointment 1 INCH/1 GM Packet ONE (21:23)
[2018-04-03 22:54] LABS: Bilirubin Negative (Negative); Blood, Urine Negative (Negative); Clarity CLEAR (Clear); Glucose, Urine (Dipstick) >=1000 mg/dL (Negative); Leukocyte Negative (Negative); Nitrite Negative (Negative); Protein, Urine (Dipstick) Negative (Neg-Trace); Specific Gravity, Urine 1.023 (1.002-1.036); pH, Urine 5.5 (5.0-9.0)
[2018-04-03 23:40] LABS: Troponin I 0.046 ng/mL (< 0.028)
[2018-04-04] MEDS ORDERED: Dextrose 50% Abboject 50 ML SYRINGE SLOW IVP PRN (03:07)
[2018-04-04] MEDS ORDERED: Senokot S 8.6-50 MG TAB PO PRN (03:07)
[2018-04-04] MEDS ORDERED: Ondansetron ODT 4 MG TAB PO PRN (03:07)
[2018-04-04] MEDS ORDERED: Dextrose 5% in Water 1,000 ML IV PRN (03:07)
[2018-04-04] MEDS ORDERED: Guaifenesin DM 100-10/5 ML UDCUP PO PRN (03:07)
[2018-04-04] MEDS ORDERED: Acetaminophen 325 MG TAB PO PRN (03:07)
[2018-04-04] MEDS ORDERED: Ondansetron PF 4 MG/2 ML Vial IVP PRN (03:07)
[2018-04-04] MEDS ORDERED: Bisacodyl 5 MG TAB PO PRN (03:07)
[2018-04-04 03:09] LABS: Troponin I 0.039 ng/mL (< 0.028)
[2018-04-04 05:05] LABS: #Eosinphils 0.1 thou/uL (0.0-0.7); #Lymphocytes 1.1 thou/uL (1.20-3.40); #Monocytes 0.6 thou/uL (0.11-0.59); #Neutrophils 3.9 thou/uL (1.40-6.50); %Basophils 0.3 % (0.0-1.0); %Eosinophils 2.4 % (0.0-10.0); %Lymphocytes 18.8 % (21.0-51.0); %Monocytes 10.3 % (0.0-10.0); %Neutrophils 68.2 % (42.0-75.0); Hemoglobin 7.5 g/dL (14.0-18.0); Mean Corpuscular HGB CONC 32.9 g/dL (32.0-36.0); Mean Corpuscular Hemoglobin 32.2 pg (27.0-31.0); Mean Corpuscular Volume 97.7 fL (78.0-98.0); Mean Platelet Volume 9.4 fL (7.4-10.4); Platelet Count 245 thou/uL (130-400); RBC Distribution Width 14.3 % (11.5-14.5); Red Blood Cell (RBC) Count 2.34 mill/uL (4.70-6.10); White Blood Cell (WBC) Count 5.7 thou/uL (4.8-10.8)
[2018-04-04 05:25] LABS: Albumin 3.1 g/dL (3.4-4.8); Anion Gap 13 mmol/L (10-20); BUN (Urea Nitrogen) 56 mg/dL (8.4-25.7); BUN/Creatinine Ratio 25.11; Calc. Creatinine Clearance 41 mL/min (70-130); Calcium 8.5 mg/dL (7.8-10.44); Carbon Dioxide 23 mmol/L (23-31); Chloride 101 mmol/L (98-107); Estimated GFR-MDRD 28; Glucose 314 mg/dL (83-110); Phosphorus 3.2 mg/dL (2.3-4.7); Potassium 4.2 mmol/L (3.5-5.1); Sodium 133 mmol/L (136-145)
[2018-04-04 05:26] LABS: Digoxin Less than 0.15 ng/mL (0.8-2.0)
[2018-04-04] MEDS: HumaLOG 300 UNITS/3 ML VIAL SC PRN ×3 (06:08→17:49)
[2018-04-04] MEDS: Levothyroxine Sodium 50 MCG TAB PO SCH (06:09)
[2018-04-04] MEDS: Furosemide 40 MG/4 ML VIAL SLOW IVP SCH ×2 (06:09→14:54)
[2018-04-04] MEDS ORDERED: Eucerin (Mineral Oil/Petrolatum,White) 30 gm Jar TOP PRN (07:34)
[2018-04-04] MEDS ORDERED: Loratadine 10 MG TAB PO PRN (07:34)
[2018-04-04] MEDS ORDERED: Cepastat Lozenges 1 LOZ PO PRN (07:34)
[2018-04-04] MEDS ORDERED: Nitroglycerin 0.4 MG TAB (25 Tab Bottle) SL PRN (07:34)
[2018-04-04] MEDS ORDERED: Diabetic Tussin 200 MG/10 ML UDCUP PO PRN (07:34)
[2018-04-04] MEDS ORDERED: Loperamide HCl 2 MG CAP PO PRN (07:34)
[2018-04-04] MEDS ORDERED: Sodium Chloride 0.65% Nasal 44 ML BOT EA NARE PRN (07:34)
[2018-04-04] MEDS ORDERED: hydrALAZINE 20 MG/ML VIAL SLOW IVP PRN (07:34)
[2018-04-04] MEDS ORDERED: Artificial Tears 18 DROP/0.9 ML EA EYE PRN (07:34)
--- NOTE | 2018-04-04 08:29 | HP ---
CHIEF COMPLAINT: Shortness of breath and generalized weakness. HISTORY OF PRESENT ILLNESS: This is an 83-year-old male with past medical history of CHF; atrial fibrillation, status post pacemaker; diabetes mellitus type 2; hypertension; obesity; renal insufficiency, presenting with shortness of breath and generalized weakness. Per , the patient has been having episodes of shortness of breath and generalized weakness, which has worsened in the past couple of days. The patient states that he has had history of shortness of breath for a while, but now it has worsened and that prompted him to come to the ED. Before the patient was actually brought to our ED, the patient went to [place] and blood work was done, which showed the patient was in acute CHF exacerbation. Therefore, the patient was recommended to come to [facility] to be further evaluated and treated. Of note, the patient has been in the hospital before and in 2017, the patient had an echo done, which showed the patient's ejection fraction was above 60%. The patient was also recently seen in our hospital and was admitted on 12/12/2017, was discharged on 12/15/2017. The patient was here during that time for weakness and dizziness, and the patient appeared to be dehydrated. The patient had acute on chronic kidney failure during that time, and the patient was managed and the patient improved and the patient was discharged. REVIEW OF SYSTEMS: Positive for weakness and shortness of breath, otherwise has been documented in the HPI. All other systems were reviewed and are negative. PAST MEDICAL HISTORY: Obesity, hypertension, diabetes mellitus type 2, renal insufficiency, atrial fibrillation, congestive heart failure, status post pacemaker. FAMILY HISTORY: Reviewed and noncontributory. PAST SURGICAL HISTORY: Cardiac ablation, cardioversion, status post pacemaker, left elbow surgery. PSYCHIATRIC HISTORY: Anxiety and depression. SOCIAL HISTORY: The patient denies any alcohol use. Denies any illicit drug use. The patient was a former tobacco smoker, the patient quit more than 10 years ago. ALLERGIES: NO KNOWN DRUG ALLERGIES. CURRENT MEDICATIONS: The patient takes: 1. Glimepiride 4 mg b.i.d. 2. Actos 45 mg daily. 3. Metoprolol 100 mg b.i.d. 4. Furosemide 40 mg daily. 5. Multaq 400 mg. 6. Xarelto 10 mg. 7. Lexapro. 8. Levothyroxine. 9. Fenofibrate. 10. Aspirin. PHYSICAL EXAMINATION: VITAL SIGNS: The patient's blood pressure is 138/73, pulse of 80, respiratory rate of 16, temperature of 96.6, O2 saturation of 97. GENERAL: The patient is lying in bed, does not appear to be in any acute distress. The patient is speaking to me in full sentences. HEENT: Normocephalic, atraumatic. Pupils are equally round and reactive to light. Extraocular movements are intact. No scleral icterus. No conjunctival pallor. Mucous membranes are moist. NECK: Trachea is midline. Full range of motion. No JVD. No carotid bruits. LUNGS: Clear to auscultation bilaterally at the anterior lung barrios. At the posterior lung barrios, there seemed to be mild crackles at the lower bases. CARDIAC: Positive S1 and S2. Irregularly irregular. ABDOMEN: No peritoneal signs. Positive bowel sounds can be appreciated. Obese abdomen. Soft, nontender, nondistended. EXTREMITIES: The patient has 5/5 upper extremity strength. Good pulses bilaterally at the upper extremities and lower extremities the patient has 2+ pitting edema as noted. Good strength of the lower extremities and good pulses bilaterally. NEUROLOGIC: Cranial nerves 2 through 12 grossly intact. No neurologic deficits noted. SKIN: Warm, dry, and intact. DIAGNOSTIC STUDIES: A 12-lead EKG shows paced rhythm. Imaging of the chest showed pulmonary congestion, pacemaker, and heart failure. LABORATORY DATA: WBC is 5.9, hemoglobin is 8.4, hematocrit is 24.3, platelet count is 255. Sodium is 134, potassium is 4.1, chloride is 102, carbon dioxide of 25, anion gap of 11, BUN is 51, creatinine is 2.30, GFR is 27, glucose 257. Troponin 0.046 and 0.039. BNP is 820.1. Urinalysis is negative. ASSESSMENT AND PLAN: This is an 83-year-old male being admitted for: 1. Acute diastolic heart failure. At this point, the patient has been given Lasix. We have consulted Cardiology. We will follow up with Cardiology regarding any current recommendations. We will continue to monitor the patient and continue current management. 2. Acute on chronic renal failure. At this point, we have consulted Nephrology regarding any further treatment. We will defer management to Nephrology Team. 3. History of diabetes mellitus type 2. Currently, the patient's blood sugars are uncontrolled. We will continue the patient on insulin sliding scale. We will try to control the patient's blood sugar and manage the patient's blood sugar between 140 to 180. 4. Hypertension. At this point, we will monitor the patient's blood pressure closely and we will give the patient blood pressure medication as needed. 5. Morbid obesity. 6. Atrial fibrillation. We will continue the patient on his home regimen. We will follow up with Cardiology regarding any further recommendations. 7. Deep venous thrombosis and gastrointestinal prophylaxis. Job ID: [id number]
[2018-04-04] MEDS ORDERED: Non-Formulary Item 1 EACH (Multivit-Min/Fa/Lycopen/Lutein [Centrum Silver Tablet] 1 TAB) PO SCH (09:00)
[2018-04-04] MEDS ORDERED: Famotidine/PF 20 mg/2ml Vial SLOW IVP SCH (09:00)
[2018-04-04] MEDS: Metoprolol Tartrate 100 MG TAB PO SCH ×2 (10:00→20:33)
[2018-04-04] MEDS: Glimepiride 4 MG TAB PO SCH ×2 (10:00→20:34)
[2018-04-04] MEDS: Famotidine 20 MG TAB PO SCH (10:00)
[2018-04-04] MEDS: Dronedarone HCl 400 MG TAB PO SCH ×2 (10:00→20:33)
[2018-04-04] MEDS: Rivaroxaban 15 MG TAB PO SCH (10:01)
[2018-04-04] MEDS: Pioglitazone HCl 45 MG TAB PO SCH (10:01)
[2018-04-04] MEDS: Multivitamin W/ Minerals 1 TAB PO SCH (10:01)
--- NOTE | 2018-04-04 12:05 | PDOC.PN ---
- Subjective Encounter Start Date: 04/04/18 Encounter Start Time: 09:30 -: old records requested/rev Patient seen and examined. No new complaints. No overnight events pt feels better, now has less dyspnea, has leg edema - Objective Resuscitation Status - Order Detail: 04/04/18 03:07 Resuscitation Status Routine Resuscitation Status: FULL: Full Resuscitation MAR Reviewed: Yes Vital Signs & Weight: Vital Signs (12 hours) Temp Pulse Resp BP Pulse Ox 04/04/18 07:09 97.5 F L 82 24 H 134/64 96 04/04/18 03:51 97.4 F L 80 20 101/50 L 96 Weight Weight 255 lb I&O: 04/03/18 04/04/18 04/05/18 06:59 06:59 06:59 Output Total 950 Balance -950 Result Diagrams: 04/04/18 04:39 04/04/18 04:39 Additional Labs: Accuchecks 04/04/18 04/04/18 11:04 06:08 POC Glucose 178 H 324 H Phys Exam - Physical Examination Constitutional: NAD HEENT: PERRLA, moist MMs, sclera anicteric Neck: supple, full ROM elevated JVD Respiratory: no wheezing, no rales, no rhonchi Cardiovascular: RRR, no rub SM+ lower left sternal border Gastrointestinal: soft, non-tender, no distention, positive bowel sounds Musculoskeletal: pulses present, edema present Neurological: non-focal, normal sensation, moves all 4 limbs Psychiatric: normal affect, A&O x 3 Skin: no rash, normal turgor Dx/Plan (1) Acute on chronic diastolic ACC/AHA stage C congestive heart failure Code(s): I50.33 - ACUTE ON CHRONIC DIASTOLIC (CONGESTIVE) HEART FAILURE Status : Acute (2) Acute worsening of stage 3 chronic kidney disease Code(s): N18.3 - CHRONIC KIDNEY DISEASE, STAGE 3 (MODERATE) Status: Acute (3) Elevated troponin Code(s): R74.8 - ABNORMAL LEVELS OF OTHER SERUM ENZYMES Status: Acute (4) Anxiety and depression Code(s): F41.9 - ANXIETY DISORDER, UNSPECIFIED; F32.9 - MAJOR DEPRESSIVE DISORDER, SINGLE EPISODE, UNSPECIFIED Status: Chronic (5) Carotid arterial disease Code(s): I77.9 - DISORDER OF ARTERIES AND ARTERIOLES, UNSPECIFIED Status: Chronic Comment: with history of Left CEA (6) Chronic anticoagulation Code(s): Z79.01 - 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 nolan (9) H/O cardiac pacemaker Code(s): Z95.0 - PRESENCE OF CARDIAC PACEMAKER Status: Chronic (10) HLD (hyperlipidemia) Code(s): E78.5 - HYPERLIPIDEMIA, UNSPECIFIED Status: Chronic (11) HTN (hypertension) Code(s): I10 - ESSENTIAL (PRIMARY) HYPERTENSION Status: Chronic Qualifiers: (12) Hypothyroidism Code(s): E03.9 - HYPOTHYROIDISM, UNSPECIFIED Status: Chronic (13) Liver cirrhosis, alcoholic Code(s): K70.30 - ALCOHOLIC CIRRHOSIS OF LIVER WITHOUT ASCITES Status: Chronic Qualifiers: (14) Moderate tricuspid regurgitation by prior echocardiogram Code(s): I07.1 - RHEUMATIC TRICUSPID INSUFFICIENCY Status: Chronic (15) Obesity (BMI 30.0-34.9) Code(s): E66.9 - OBESITY, UNSPECIFIED Status: Chronic (16) Pulmonary hypertension, moderate to severe Code(s): I27.20 - PULMONARY HYPERTENSION, UNSPECIFIED Status: Chronic - Plan cont current plan of care, plan discussed w/ family * medication reviewed as below * symptomatic treatment * continue IV lasix * renal function improving * discussed with family * monitor labs. * home medication reconciled Review of Systems - Review of Systems Eyes: negative: Pain, Vision Change, Conjunctivae Inflammation, Eyelid Inflammation, Redness, Other ENT: negative: Ear Pain, Ear Discharge, Nose Pain, Nose Discharge, Nose Congestion, Mouth Pain, Mouth Swelling, Throat Pain, Throat Swelling, Other Respiratory: Shortness of Breath, SOB with Excertion. negative: Cough, Dry, Hemoptysis, Pleuritic Pain, Sputum, Wheezing Cardiovascular: edema. negative: chest pain, palpitations, orthopnea, paroxysmal nocturnal dyspnea, light headedness, other Gastrointestinal: negative: Nausea, Vomiting, Abdominal Pain, Diarrhea, Constipation, Melena, Hematochezia, Other Genitourinary: negative: Dysuria, Frequency, Incontinence, Hematuria, Retention , Other Musculoskeletal: negative: Neck Pain, Shoulder Pain, Arm Pain, Back Pain, Hand Pain, Leg Pain, Foot Pain, Other Skin: negative: Rash, Lesions, Shahbaz, Bruising, Other - Medications/Allergies Allergies/Adverse Reactions: Allergies Allergy/AdvReac Type Severity Reaction Status Date / Time No Known Allergies Allergy Verified 04/03/18 23:31 Medications: Current Medications Acetaminophen (Tylenol) 650 mg PO Q4H PRN PRN Reason: Headache/Fever/Mild Pain (1-3) Hydrocodone Bitart/Acetaminophen ([place] 5/325) 1 tab PO Q4H PRN PRN Reason: Moderate Pain (4-6) Albuterol/Ipratropium (Duoneb) 3 ml NEB [id number] PRN PRN Reason: SOB &/or Wheezing Artificial Tears (Tears Naturale) 2 drop EA EYE PRN PRN PRN Reason: Dry Eyes Aspirin (Ecotrin) 81 mg PO HS [facility] Bisacodyl (Dulcolax) 10 mg PO DAILYPRN PRN PRN Reason: Constipation Dextrose/Water (Dextrose 50%) 25 gm SLOW IVP PRN PRN PRN Reason: Hypoglycemia Dronedarone (Multaq) 400 mg PO BID [facility] Last Admin: 04/04/18 10:00 Dose: 400 mg Escitalopram Oxalate (Lexapro) 5 mg PO HS [facility] Famotidine (Pepcid) 20 mg PO DAILY [facility] Last Admin: 04/04/18 10:00 Dose: 20 mg Fenofibrate (Tricor) 145 mg PO HS [facility] Furosemide (Lasix) 40 mg SLOW IVP 0600,1400 [facility] Last Admin: 04/04/18 06:09 Dose: 40 mg Glimepiride (Amaryl) 4 mg PO BID [facility] Last Admin: 04/04/18 10:00 Dose: 4 mg Glucagon (Glucagon) 1 mg IM PRN PRN PRN Reason: Hypoglycemia Guaifenesin (Robitussin Sf) 200 mg PO Q4H PRN PRN Reason: Cough Guaifenesin/Dextromethorphan (Robitussin Dm) 15 ml PO Q4H PRN PRN Reason: Cough Hydralazine HCl (Apresoline) 10 mg SLOW IVP Q4H PRN PRN Reason: SBP > 180 and HR < 70 Dextrose/Water (D5w) 1,000 mls @ 0 mls/hr IV .Q0M PRN PRN Reason: Hypoglycemia Insulin Human Lispro (Humalog) 0 units SC .MODERATE SLIDING SC PRN PRN Reason: Moderate Correctional Scale Last Admin: 04/04/18 06:08 Dose: 8 unit Insulin Human Lispro (Humalog) 0 units SC .BEDTIME SLIDING SC PRN PRN Reason: Bedtime Correctional Scale Iron/Minerals/Multivitamins (Theragran M) 1 tab PO DAILY [facility] Last Admin: 04/04/18 10:01 Dose: 1 tab Levothyroxine Sodium (Synthroid) 50 mcg PO 0600 [facility] Last Admin: 04/04/18 06:09 Dose: 50 mcg Loperamide HCl (Imodium) 2 mg PO PRN PRN PRN Reason: Diarrhea/Loose Stools Loratadine (Claritin) 10 mg PO DAILYPRN PRN PRN Reason: Sinus Symptoms Metoprolol Tartrate (Lopressor) 100 mg PO BID [facility] Last Admin: 04/04/18 10:00 Dose: 100 mg Mineral Oil/White Petrolatum (Eucerin Cream) 0 gm TOP BIDPRN PRN PRN Reason: Dry Skin Nitroglycerin (Nitrostat) 0.4 mg SL Q5MIN PRN PRN Reason: Chest Pain Ondansetron HCl (Zofran Odt) 4 mg PO Q6H PRN PRN Reason: Nausea/Vomiting Ondansetron HCl (Zofran) 4 mg IVP Q6H PRN PRN Reason: Nausea/Vomiting Pioglitazone HCl (Actos) 45 mg PO DAILY [facility] Last Admin: 04/04/18 10:01 Dose: 45 mg Rivaroxaban (Xarelto) 15 mg PO DAILY [facility] Last Admin: 04/04/18 10:01 Dose: 15 mg Senna/Docusate Sodium (Senokot S) 2 tab PO BIDPRN PRN PRN Reason: Constipation Sodium Chloride (Flush - Normal Saline) 10 ml IVF Q12HR [facility] Last Admin: 04/04/18 10:01 Dose: 10 ml Sodium Chloride (Flush - Normal Saline) 10 ml IVF PRN PRN PRN Reason: Saline Flush Last Admin: 04/04/18 06:09 Dose: 10 ml Sodium Chloride ([place] Nasal [place] 0.65%) 0 ml EA NARE QIDPRN PRN PRN Reason: Nasal Congestion Throat Lozenges (Cepastat Lozenges) 1 domenic PO Q2H PRN PRN Reason: Sore Throat Zolpidem Tartrate (Ambien) 5 mg PO HSPRN PRN PRN Reason: Insomnia
--- NOTE | 2018-04-04 18:31 | CON ---
DATE OF CONSULTATION: REASON FOR CONSULTATION: Shortness of breath, lower extremity edema and weakness. HISTORY OF PRESENT ILLNESS: Mr. Ureña is a pleasant 83-year-old gentleman, whom I have seen and evaluated in the past. Please see previous history below. He recently presented with fatigue, weakness, and shortness of breath. He and his both states it has been a long-standing issue. His last appointment noted in the office was 11/29/2017. No chest pain or pressure noted. PAST MEDICAL HISTORY: Includes chronic atrial fibrillation, on anticoagulation therapy; hypertension; diastolic dysfunction; carotid stenosis; chronic kidney disease, status post pacemaker; and obstructive sleep apnea. HOME MEDICATIONS: Include, 1. Multaq. 2. Metoprolol. 3. Tirosint. 4. Aspirin. 5. Xarelto 50 mg. 6. Actos. 7. Lasix. 8. Trazodone. 9. Spironolactone. 10. Fluoxetine. 11. Glimepiride. 12. Fenofibric acid. ALLERGIES: NONE. SOCIAL HISTORY: No current tobacco or alcohol use. REVIEW OF SYSTEMS: Ten-point review of systems is reviewed and as above, negative. PHYSICAL EXAMINATION: GENERAL: Patient is a pleasant male, who is in no acute distress. The patient appears their stated age. VITAL SIGNS: Blood pressure 115/57, pulse 81, temperature 97.9. NEUROLOGIC: The patient is alert and oriented x3 with no focal neurologic deficits. HEENT: Sclerae without icterus. Mouth has moist mucous membranes with normal pallor. NECK: No JVD. Carotid upstroke brisk. No bruits bilaterally. LUNGS: Clear to auscultation with unlabored respirations. BACK: No scoliosis or kyphosis. CARDIAC: Regular rate and rhythm with normal S1 and S2. No S3 or S4 noted. No significant rubs, murmurs, thrills, or gallops noted throughout the precordium. PMI is not displaced. There is no parasternal heave. ABDOMEN: Soft, nontender, nondistended. No peritoneal signs present. No hepatosplenomegaly. No abnormal striae. EXTREMITIES: 2+ femoral and 2+ dorsalis pedis pulses. No cyanosis, clubbing. 1 to 2+ pitting edema. SKIN: No gross abnormalities. LABORATORY DATA: Hemoglobin 7.5, creatinine 2.23 with a GFR of 28, peak troponin 0.039, albumin 3.1, TSH 6.5. Last echo dated 06/29/2017, LVEF 55-60% with moderate MR, moderate TR, and severe pulmonary hypertension with right ventricular systolic pressure of 82. IMPRESSION: 1. Shortness of breath. 2. Edema. 3. Weakness and fatigue. 4. Anemia. 5. Chronic kidney disease stage 4. 6. Severe pulmonary hypertension. RECOMMENDATIONS: Mr. Ureña's symptoms certainly appeared to be multifactorial. He has a previous history of severe pulmonary hypertension in addition to recent anemia and worsening chronic kidney disease. His TSH is also elevated at 6. All of the above can certainly contribute to fatigue, weakness, lower extremity edema in addition to PND. May give a small dose of Lasix for some improvement. May consider consulting with Nephrology. Recommend repeating his echo to assess for severity of pulmonary hypertension. Job ID: [id number]
--- NOTE | 2018-04-04 18:45 | CON ---
DATE OF CONSULTATION: NEPHROLOGY CONSULTATION REASON FOR CONSULTATION: Elevated creatinine. HISTORY OF PRESENT ILLNESS: This is a very pleasant 83-year-old gentleman, who presented to the hospital early this morning for generalized weakness, leg swelling and shortness of breath. The patient's baseline creatinine was in the 2s which increased to 2.3 today. The patient has a history of diastolic heart failure. The patient denies any nausea, vomiting, or chest pain. PAST MEDICAL HISTORY: Significant for congestive heart failure, diastolic dysfunction, pacemaker, diabetes mellitus, obesity, hypertension, history of cardiac ablation, cardioversion, left elbow surgery. MEDICATIONS: Home medications list reviewed. Hospital medications list reviewed. ALLERGIES: REVIEWED. SOCIAL HISTORY: No alcohol or drug use. FAMILY HISTORY: Negative for ESRD. REVIEW OF SYSTEMS: Fifteen-point review of systems was performed and negative except for positives noted above. NECK: No swelling or lumps. NOSE: No epistaxis or discharge. EYES: No diplopia or pain. MUSCULOSKELETAL: No joint pain. NEUROPSYCHIATRIC SYSTEM: No suicidal ideation. No ideation. SKIN: Denies any rash or ulcer. CONSTITUTIONAL: No fever or chills. OBJECTIVE: GENERAL: On exam, the patient is awake, alert, in no acute distress. VITAL SIGNS: Afebrile, pulse 75, breathing 16, blood pressure 132/73. GENERAL APPEARANCE AND MENTAL STATUS: Fair. HEAD/NECK: Normocephalic. Atraumatic. EYES: EOMI. No deformity. EARS: Clear. No ulcers. NOSE: Intact. No lesions. MOUTH: Clear. No discharge. THROAT: Clear. No exudate. LUNGS: Clear. No crackles. CARDIAC: S1, S2. No rub. ABDOMEN: Benign. Bowel sounds positive. GENITALIA/RECTUM: Jiménez absent. BACK/EXTREMITIES: Lower extremities have edema. NEUROLOGICAL: Alert and motor intact. LABORATORY DATA: Hemoglobin 7.5, creatinine 2.0. ASSESSMENT AND PLAN: 1. Acute kidney injury with chronic kidney disease stage 4, stable. 2. Hypertension, stable. 3. Anemia, I would recommend transfusion and start Epogen. 4. Hypothyroidism. Management per Primary Team. Job ID: [id number]
[2018-04-04] MEDS: Escitalopram Oxalate 10 mg Tablet PO SCH (20:33)
[2018-04-04] MEDS: Fenofibrate Nanocrystallized 145 MG TAB PO SCH (20:33)
[2018-04-04] MEDS: Aspirin 81 mg Enteric Coated Tablet PO SCH (20:34)
[2018-04-04] MEDS: HYDROcodone/Acetaminophen 5/325 mg Tablet PO PRN (20:34)
[2018-04-04] MEDS ORDERED: Non-Formulary Item 1 EACH (Fenofibric Acid (Choline) [Trilipix] 135 MG) PO SCH (21:00)
[2018-04-04] MEDS: Zolpidem Tartrate 5 MG TAB PO PRN (22:49)
[2018-04-05] MEDS: Levothyroxine Sodium 50 MCG TAB PO SCH (06:14)
[2018-04-05] MEDS: Furosemide 40 MG/4 ML VIAL SLOW IVP SCH ×2 (06:15→14:49)
[2018-04-05 06:25] LABS: #Basophils 0.1 thou/uL (0.0-0.2); #Eosinphils 0.2 thou/uL (0.0-0.7); #Lymphocytes 1.3 thou/uL (1.20-3.40); #Monocytes 0.7 thou/uL (0.11-0.59); %Basophils 0.9 % (0.0-1.0); %Eosinophils 2.3 % (0.0-10.0); %Lymphocytes 17.6 % (21.0-51.0); %Monocytes 9.3 % (0.0-10.0); %Neutrophils 69.8 % (42.0-75.0); Hemoglobin 8.5 g/dL (14.0-18.0); Mean Corpuscular Hemoglobin 33.4 pg (27.0-31.0); Mean Corpuscular Volume 98.3 fL (78.0-98.0); Mean Platelet Volume 8.9 fL (7.4-10.4); Platelet Count 272 thou/uL (130-400); RBC Distribution Width 14.5 % (11.5-14.5); Red Blood Cell (RBC) Count 2.53 mill/uL (4.70-6.10); White Blood Cell (WBC) Count 7.1 thou/uL (4.8-10.8)
[2018-04-05 06:49] LABS: Albumin 3.4 g/dL (3.4-4.8); Anion Gap 13 mmol/L (10-20); BUN (Urea Nitrogen) 57 mg/dL (8.4-25.7); BUN/Creatinine Ratio 25.33; Calc. Creatinine Clearance 40 mL/min (70-130); Calcium 8.8 mg/dL (7.8-10.44); Carbon Dioxide 27 mmol/L (23-31); Chloride 100 mmol/L (98-107); Estimated GFR-MDRD 28; Glucose 143 mg/dL (83-110); Magnesium 2.1 mg/dL (1.6-2.6); Phosphorus 4.1 mg/dL (2.3-4.7); Potassium 3.8 mmol/L (3.5-5.1); Sodium 136 mmol/L (136-145); Uric Acid 9.4 mg/dL (3.5-7.2)
[2018-04-05] MEDS: Dronedarone HCl 400 MG TAB PO SCH ×2 (09:08→21:42)
[2018-04-05] MEDS: Metoprolol Tartrate 100 MG TAB PO SCH ×2 (09:08→21:44)
[2018-04-05] MEDS: Glimepiride 4 MG TAB PO SCH ×2 (09:08→21:43)
[2018-04-05] MEDS: Famotidine 20 MG TAB PO SCH (09:08)
[2018-04-05] MEDS: Allopurinol 100 MG TAB PO SCH (09:08)
[2018-04-05] MEDS: Multivitamin W/ Minerals 1 TAB PO SCH (09:08)
[2018-04-05] MEDS: HYDROcodone/Acetaminophen 5/325 mg Tablet PO PRN (09:09)
[2018-04-05] MEDS: Rivaroxaban 15 MG TAB PO SCH (09:09)
[2018-04-05] MEDS: Pioglitazone HCl 45 MG TAB PO SCH (09:09)
[2018-04-05] MEDS ORDERED: Epoetin (ESRD) 10,000 UNITS/ML VIAL SC SCH (10:30)
--- NOTE | 2018-04-05 10:50 | PDOC.PN ---
- Subjective Encounter Start Date: 04/05/18 Encounter Start Time: 07:30 Patient seen and examined. No new complaints. No overnight events - Objective Resuscitation Status - Order Detail: 04/04/18 03:07 Resuscitation Status Routine Resuscitation Status: FULL: Full Resuscitation MAR Reviewed: Yes Vital Signs & Weight: Vital Signs (12 hours) Temp Pulse Resp BP BP Pulse Ox 04/05/18 08:10 95 04/05/18 07:05 97.4 F L 83 20 97/52 L 95 04/05/18 04:05 80 20 121/61 94 L 04/04/18 23:46 97.3 F L 80 16 106/52 L 98 Weight Weight 249 lb 12.8 oz I&O: 04/04/18 04/05/18 04/06/18 06:59 06:59 06:59 Intake Total 1810 240 Output Total 950 2025 Balance -950 -215 240 Result Diagrams: 04/05/18 06:06 04/05/18 06:06 Additional Labs: Accuchecks 04/05/18 04/05/18 04/04/18 10:26 05:13 23:54 POC Glucose 288 H 147 H 164 H 04/04/18 04/04/18 16:48 11:04 POC Glucose 280 H 178 H EKG Reviewed by me: Yes Phys Exam - Physical Examination Constitutional: NAD HEENT: PERRLA, moist MMs, sclera anicteric Neck: no JVD, supple Respiratory: no wheezing, no rales, no rhonchi Cardiovascular: RRR, no rub SM+ left lower sternal border Gastrointestinal: soft, non-tender, no distention, positive bowel sounds Musculoskeletal: no edema, pulses present Neurological: non-focal, normal sensation Lymphatic: no nodes Psychiatric: normal affect, A&O x 3 Skin: no rash, normal turgor Dx/Plan (1) Acute on chronic diastolic ACC/AHA stage C congestive heart failure Code(s): I50.33 - ACUTE ON CHRONIC DIASTOLIC (CONGESTIVE) HEART FAILURE Status : Acute (2) Acute worsening of stage 3 chronic kidney disease Code(s): N18.3 - CHRONIC KIDNEY DISEASE, STAGE 3 (MODERATE) Status: Acute (3) Elevated troponin Code(s): R74.8 - ABNORMAL LEVELS OF OTHER SERUM ENZYMES Status: Acute (4) Anxiety and depression Code(s): F41.9 - ANXIETY DISORDER, UNSPECIFIED; F32.9 - MAJOR DEPRESSIVE DISORDER, SINGLE EPISODE, UNSPECIFIED Status: Chronic (5) Carotid arterial disease Code(s): I77.9 - DISORDER OF ARTERIES AND ARTERIOLES, UNSPECIFIED Status: Chronic Comment: with history of Left CEA (6) Chronic anticoagulation Code(s): Z79.01 - ASSIGNMENT DESK ASSISTANT (CURRENT) USE OF ANTICOAGULANTS Status: Chronic (7) DM2 (diabetes mellitus, type 2) Status: Chronic Comment: A1C 8.8, ISS, resume oral hypoglycemics (8) H/O cardiac arrhythmia Code(s): Z86.79 - PERSONAL HISTORY OF OTHER DISEASES OF THE CIRCULATORY SYSTEM Status: Chronic Comment: s/p Ablation and PPM in the past.Competitive Intelligence Analyst is Dr. nolan (9) H/O cardiac pacemaker Code(s): Z95.0 - PRESENCE OF CARDIAC PACEMAKER Status: Chronic (10) HLD (hyperlipidemia) Code(s): E78.5 - HYPERLIPIDEMIA, UNSPECIFIED Status: Chronic (11) HTN (hypertension) Code(s): I10 - ESSENTIAL (PRIMARY) HYPERTENSION Status: Chronic Qualifiers: (12) Hypothyroidism Code(s): E03.9 - HYPOTHYROIDISM, UNSPECIFIED Status: Chronic (13) Liver cirrhosis, alcoholic Code(s): K70.30 - ALCOHOLIC CIRRHOSIS OF LIVER WITHOUT ASCITES Status: Chronic Qualifiers: (14) Moderate tricuspid regurgitation by prior echocardiogram Code(s): I07.1 - RHEUMATIC TRICUSPID INSUFFICIENCY Status: Chronic (15) Obesity (BMI 30.0-34.9) Code(s): E66.9 - OBESITY, UNSPECIFIED Status: Chronic (16) Pulmonary hypertension, moderate to severe Code(s): I27.20 - PULMONARY HYPERTENSION, UNSPECIFIED Status: Chronic - Plan cont current plan of care, plan discussed w/ family * continue current treatment plan, pt is improving * cardiology and nephrology recommendation appreciated * medication reviewed as below * symptomatic treatment. * echo pending result Review of Systems - Review of Systems ENT: negative: Ear Pain, Ear Discharge, Nose Pain, Nose Discharge, Nose Congestion, Mouth Pain, Mouth Swelling, Throat Pain, Throat Swelling, Other Respiratory: negative: Cough, Dry, Shortness of Breath, Hemoptysis, SOB with Excertion, Pleuritic Pain, Sputum, Wheezing Cardiovascular: negative: chest pain, palpitations, orthopnea, paroxysmal nocturnal dyspnea, edema, light headedness, other Gastrointestinal: negative: Nausea, Vomiting, Abdominal Pain, Diarrhea, Constipation, Melena, Hematochezia, Other Genitourinary: negative: Dysuria, Frequency, Incontinence, Hematuria, Retention , Other Musculoskeletal: negative: Neck Pain, Shoulder Pain, Arm Pain, Back Pain, Hand Pain, Leg Pain, Foot Pain, Other Skin: negative: Rash, Lesions, Shahbaz, Bruising, Other - Medications/Allergies Allergies/Adverse Reactions: Allergies Allergy/AdvReac Type Severity Reaction Status Date / Time No Known Allergies Allergy Verified 04/03/18 23:31 Medications: Current Medications Acetaminophen (Tylenol) 650 mg PO Q4H PRN PRN Reason: Headache/Fever/Mild Pain (1-3) Hydrocodone Bitart/Acetaminophen ([place] 5/325) 1 tab PO Q4H PRN PRN Reason: Moderate Pain (4-6) Last Admin: 04/05/18 09:09 Dose: 1 tab Albuterol/Ipratropium (Duoneb) 3 ml NEB [id number] PRN PRN Reason: SOB &/or Wheezing Allopurinol (Zyloprim) 100 mg PO DAILY [facility] Last Admin: 04/05/18 09:08 Dose: 100 mg Artificial Tears (Tears Naturale) 2 drop EA EYE PRN PRN PRN Reason: Dry Eyes Aspirin (Ecotrin) 81 mg PO HS [facility] Last Admin: 04/04/18 20:34 Dose: 81 mg Bisacodyl (Dulcolax) 10 mg PO DAILYPRN PRN PRN Reason: Constipation Dextrose/Water (Dextrose 50%) 25 gm SLOW IVP PRN PRN PRN Reason: Hypoglycemia Dronedarone (Multaq) 400 mg PO BID [facility] Last Admin: 04/05/18 09:08 Dose: 400 mg Epoetin [place] (Procrit) 10,000 units SC Q7D [facility] Escitalopram Oxalate (Lexapro) 5 mg PO HS [facility] Last Admin: 04/04/18 20:33 Dose: 5 mg Famotidine (Pepcid) 20 mg PO DAILY [facility] Last Admin: 04/05/18 09:08 Dose: 20 mg Fenofibrate (Tricor) 145 mg PO HS [facility] Last Admin: 04/04/18 20:33 Dose: 145 mg Furosemide (Lasix) 40 mg SLOW IVP 0600,1400 [facility] Last Admin: 04/05/18 06:15 Dose: 40 mg Glimepiride (Amaryl) 4 mg PO BID [facility] Last Admin: 04/05/18 09:08 Dose: 4 mg Glucagon (Glucagon) 1 mg IM PRN PRN PRN Reason: Hypoglycemia Guaifenesin (Robitussin Sf) 200 mg PO Q4H PRN PRN Reason: Cough Guaifenesin/Dextromethorphan (Robitussin Dm) 15 ml PO Q4H PRN PRN Reason: Cough Hydralazine HCl (Apresoline) 10 mg SLOW IVP Q4H PRN PRN Reason: SBP > 180 and HR < 70 Dextrose/Water (D5w) 1,000 mls @ 0 mls/hr IV .Q0M PRN PRN Reason: Hypoglycemia Insulin Human Lispro (Humalog) 0 units SC .MODERATE SLIDING SC PRN PRN Reason: Moderate Correctional Scale Last Admin: 04/04/18 17:49 Dose: 6 unit Insulin Human Lispro (Humalog) 0 units SC .BEDTIME SLIDING SC PRN PRN Reason: Bedtime Correctional Scale Iron/Minerals/Multivitamins (Theragran M) 1 tab PO DAILY [facility] Last Admin: 04/05/18 09:08 Dose: 1 tab Levothyroxine Sodium (Synthroid) 50 mcg PO 0600 [facility] Last Admin: 04/05/18 06:14 Dose: 50 mcg Loperamide HCl (Imodium) 2 mg PO PRN PRN PRN Reason: Diarrhea/Loose Stools Loratadine (Claritin) 10 mg PO DAILYPRN PRN PRN Reason: Sinus Symptoms Metoprolol Tartrate (Lopressor) 100 mg PO BID [facility] Last Admin: 04/05/18 09:08 Dose: 100 mg Mineral Oil/White Petrolatum (Eucerin Cream) 0 gm TOP BIDPRN PRN PRN Reason: Dry Skin Nitroglycerin (Nitrostat) 0.4 mg SL Q5MIN PRN PRN Reason: Chest Pain Ondansetron HCl (Zofran Odt) 4 mg PO Q6H PRN PRN Reason: Nausea/Vomiting Ondansetron HCl (Zofran) 4 mg IVP Q6H PRN PRN Reason: Nausea/Vomiting Pioglitazone HCl (Actos) 45 mg PO DAILY [facility] Last Admin: 04/05/18 09:09 Dose: 45 mg Rivaroxaban (Xarelto) 15 mg PO DAILY [facility] Last Admin: 04/05/18 09:09 Dose: 15 mg Senna/Docusate Sodium (Senokot S) 2 tab PO BIDPRN PRN PRN Reason: Constipation Sodium Chloride (Flush - Normal Saline) 10 ml IVF Q12HR [facility] Last Admin: 04/05/18 09:08 Dose: 10 ml Sodium Chloride (Flush - Normal Saline) 10 ml IVF PRN PRN PRN Reason: Saline Flush Last Admin: 04/04/18 06:09 Dose: 10 ml Sodium Chloride ([place] Nasal [place] 0.65%) 0 ml EA NARE QIDPRN PRN PRN Reason: Nasal Congestion Throat Lozenges (Cepastat Lozenges) 1 domenic PO Q2H PRN PRN Reason: Sore Throat Zolpidem Tartrate (Ambien) 5 mg PO HSPRN PRN PRN Reason: Insomnia Last Admin: 04/04/18 22:49 Dose: 5 mg
--- NOTE | 2018-04-05 11:31 | PRG ---
DATE OF SERVICE: 04/05/2018 SUBJECTIVE: An 83-year-old gentleman, being seen for acute kidney injury. The patient denies any nausea, vomiting, or chest pain. OBJECTIVE: CONSTITUTIONAL: The patient is awake and alert. VITAL SIGNS: Afebrile, pulse 83, breathing 16, and blood pressure 121/61. GENERAL APPEARANCE AND MENTAL STATUS: Fair. HEAD/NECK: Normocephalic. Atraumatic. EYES: EOMI. No deformity. EARS: Clear. No ulcers. NOSE: Intact. No lesions. MOUTH: Clear. No discharge. THROAT: Clear. No exudate. LUNGS: Clear. No crackles. CARDIAC: S1, S2. No rub. ABDOMEN: Benign. Bowel sounds positive. GENITALIA/RECTUM: Jiménez absent. BACK/EXTREMITIES: Edema 0+. NEUROLOGICAL: Alert and motor intact. SKIN: LYMPHATICS: LABORATORY DATA: Hemoglobin 8.5. Iron studies are pending. ASSESSMENT AND PLAN: Acute kidney injury with chronic kidney disease, stable. Hypertension, stable. Anemia, we will start Epogen and would recommend taking the patient will see me in a couple of weeks. Job ID: [id number]
[2018-04-05] MEDS: HumaLOG 300 UNITS/3 ML VIAL SC PRN ×3 (11:35→21:45)
--- NOTE | 2018-04-05 14:16 | EKG ---
Test Reason : SOB Blood Pressure : / mmHG Vent. Rate : 080 BPM Atrial Rate : 182 BPM P-R Int : 000 ms QRS Dur : 174 ms QT Int : 504 ms P-R-T Axes : 000 139 047 degrees QTc Int : 581 ms Ventricular-paced rhythm Abnormal ECG Confirmed by MELISSA MCKEON MD ([id number]), metropolitan editor AFSHAN VIEYRA ([id number]) on 04/05/2018 2:15:46 PM Referred By: Confirmed By:MELISSA MCKEON MD
[2018-04-05] MEDS: Escitalopram Oxalate 10 mg Tablet PO SCH (21:42)
[2018-04-05] MEDS: Zolpidem Tartrate 5 MG TAB PO PRN (21:43)
[2018-04-05] MEDS: Fenofibrate Nanocrystallized 145 MG TAB PO SCH (21:43)
[2018-04-05] MEDS: Aspirin 81 mg Enteric Coated Tablet PO SCH (21:43)
[2018-04-06] MEDS: Levothyroxine Sodium 50 MCG TAB PO SCH (04:39)
[2018-04-06 05:00] LABS: #Eosinphils 0.2 thou/uL (0.0-0.7); #Lymphocytes 1.1 thou/uL (1.20-3.40); #Monocytes 0.7 thou/uL (0.11-0.59); #Neutrophils 5.8 thou/uL (1.40-6.50); %Basophils 0.4 % (0.0-1.0); %Eosinophils 2.3 % (0.0-10.0); %Lymphocytes 14.3 % (21.0-51.0); %Monocytes 9.1 % (0.0-10.0); Hemoglobin 8.5 g/dL (14.0-18.0); Mean Corpuscular HGB CONC 33.5 g/dL (32.0-36.0); Mean Corpuscular Hemoglobin 33.2 pg (27.0-31.0); Mean Corpuscular Volume 98.9 fL (78.0-98.0); Mean Platelet Volume 9.1 fL (7.4-10.4); Platelet Count 279 thou/uL (130-400); RBC Distribution Width 14.9 % (11.5-14.5); Red Blood Cell (RBC) Count 2.55 mill/uL (4.70-6.10); White Blood Cell (WBC) Count 7.9 thou/uL (4.8-10.8)
[2018-04-06 05:21] LABS: Anion Gap 17 mmol/L (10-20); BUN (Urea Nitrogen) 53 mg/dL (8.4-25.7); Calc. Creatinine Clearance 38 mL/min (70-130); Calcium 8.7 mg/dL (7.8-10.44); Carbon Dioxide 21 mmol/L (23-31); Chloride 99 mmol/L (98-107); Estimated GFR-MDRD 27; Glucose 155 mg/dL (83-110); Potassium 3.7 mmol/L (3.5-5.1); Sodium 133 mmol/L (136-145)
[2018-04-06] MEDS: Allopurinol 100 MG TAB PO SCH (08:41)
[2018-04-06] MEDS: Dronedarone HCl 400 MG TAB PO SCH ×2 (08:42→21:00)
[2018-04-06] MEDS: Famotidine 20 MG TAB PO SCH (08:42)
[2018-04-06] MEDS: Multivitamin W/ Minerals 1 TAB PO SCH (08:42)
[2018-04-06] MEDS: Rivaroxaban 15 MG TAB PO SCH (08:42)
[2018-04-06] MEDS: Glimepiride 4 MG TAB PO SCH ×2 (08:42→21:01)
[2018-04-06] MEDS: Metoprolol Tartrate 100 MG TAB PO SCH ×3 (08:43→21:02)
[2018-04-06] MEDS: Pioglitazone HCl 45 MG TAB PO SCH (08:44)
--- NOTE | 2018-04-06 09:33 | PDOC.PN ---
- Subjective Encounter Start Date: 04/06/18 Encounter Start Time: 07:30 today pt is feeling weak, has orthostatic vitals positive, no chest pain, feels dizzi Patient seen and examined. No overnight events - Objective Resuscitation Status - Order Detail: 04/04/18 03:07 Resuscitation Status Routine Resuscitation Status: FULL: Full Resuscitation MAR Reviewed: Yes Vital Signs & Weight: Vital Signs (12 hours) Temp Pulse Resp BP BP BP Pulse Ox 04/06/18 07:20 97.4 F L 81 18 115/56 L 93 L 04/06/18 04:03 123/57 L 97/48 L 04/05/18 23:17 97.1 F L 80 24 H 99/50 L 96 Weight Weight 249 lb 11.2 oz I&O: 04/05/18 04/06/18 04/07/18 06:59 06:59 06:59 Intake Total 1810 1920 Output Total 2024 750 Balance -215 1170 Result Diagrams: 04/06/18 04:38 04/06/18 04:38 Additional Labs: Accuchecks 04/05/18 04/05/18 04/05/18 20:51 17:05 10:26 POC Glucose 291 H 241 H 288 H EKG Reviewed by me: Yes (nsr) Phys Exam - Physical Examination Constitutional: NAD HEENT: PERRLA, moist MMs, sclera anicteric Neck: no JVD, supple Respiratory: no wheezing, no rales, no rhonchi Cardiovascular: RRR, no rub SM+ Gastrointestinal: soft, non-tender, no distention, positive bowel sounds Musculoskeletal: no edema, pulses present trace edema+ Neurological: non-focal, normal sensation Lymphatic: no nodes Psychiatric: normal affect, A&O x 3 Skin: no rash, normal turgor Dx/Plan (1) Acute on chronic diastolic ACC/AHA stage C congestive heart failure Code(s): I50.33 - ACUTE ON CHRONIC DIASTOLIC (CONGESTIVE) HEART FAILURE Status : Acute (2) Acute worsening of stage 3 chronic kidney disease Code(s): N18.3 - CHRONIC KIDNEY DISEASE, STAGE 3 (MODERATE) Status: Acute (3) Elevated troponin Code(s): R74.8 - ABNORMAL LEVELS OF OTHER SERUM ENZYMES Status: Acute (4) Anxiety and depression Code(s): F41.9 - ANXIETY DISORDER, UNSPECIFIED; F32.9 - MAJOR DEPRESSIVE DISORDER, SINGLE EPISODE, UNSPECIFIED Status: Chronic (5) Carotid arterial disease Code(s): I77.9 - DISORDER OF ARTERIES AND ARTERIOLES, UNSPECIFIED Status: Chronic Comment: with history of Left CEA (6) Chronic anticoagulation Code(s): Z79.01 - SHELTER (CURRENT) USE OF ANTICOAGULANTS Status: Chronic (7) DM2 (diabetes mellitus, type 2) Status: Chronic Comment: A1C 8.8, ISS, resume oral hypoglycemics (8) H/O cardiac arrhythmia Code(s): Z86.79 - PERSONAL HISTORY OF OTHER DISEASES OF THE CIRCULATORY SYSTEM Status: Chronic Comment: s/p Ablation and PPM in the past.Hole Digger is Dr. nolan (9) H/O cardiac pacemaker Code(s): Z95.0 - PRESENCE OF CARDIAC PACEMAKER Status: Chronic (10) HLD (hyperlipidemia) Code(s): E78.5 - HYPERLIPIDEMIA, UNSPECIFIED Status: Chronic (11) HTN (hypertension) Code(s): I10 - ESSENTIAL (PRIMARY) HYPERTENSION Status: Chronic Qualifiers: (12) Hypothyroidism Code(s): E03.9 - HYPOTHYROIDISM, UNSPECIFIED Status: Chronic (13) Liver cirrhosis, alcoholic Code(s): K70.30 - ALCOHOLIC CIRRHOSIS OF LIVER WITHOUT ASCITES Status: Chronic Qualifiers: (14) Moderate tricuspid regurgitation by prior echocardiogram Code(s): I07.1 - RHEUMATIC TRICUSPID INSUFFICIENCY Status: Chronic (15) Obesity (BMI 30.0-34.9) Code(s): E66.9 - OBESITY, UNSPECIFIED Status: Chronic (16) Pulmonary hypertension, moderate to severe Code(s): I27.20 - PULMONARY HYPERTENSION, UNSPECIFIED Status: Chronic (17) Hyperuricemia Code(s): E79.0 - HYPERURICEMIA W/O SIGNS OF INFLAM ARTHRIT AND TOPHACEOUS DIS Status: Acute (18) Stage C chronic diastolic congestive heart failure Code(s): I50.32 - CHRONIC DIASTOLIC (CONGESTIVE) HEART FAILURE Status: Chronic - Plan cont current plan of care, plan discussed w/ family, PT/OT * hold metoprolol this morning * check FOBT * start PT * will monitor today * hold lasix * medication reviewed as below * symptomatic treatment * discussed with . * Hb is better Review of Systems - Review of Systems Constitutional: weakness. negative: fever, chills, sweats, malaise, other ENT: negative: Ear Pain, Ear Discharge, Nose Pain, Nose Discharge, Nose Congestion, Mouth Pain, Mouth Swelling, Throat Pain, Throat Swelling, Other Respiratory: negative: Cough, Dry, Shortness of Breath, Hemoptysis, SOB with Excertion, Pleuritic Pain, Sputum, Wheezing Cardiovascular: light headedness. negative: chest pain, palpitations, orthopnea , paroxysmal nocturnal dyspnea, edema, other Gastrointestinal: negative: Nausea, Vomiting, Abdominal Pain, Diarrhea, Constipation, Melena, Hematochezia, Other Genitourinary: negative: Dysuria, Frequency, Incontinence, Hematuria, Retention , Other Musculoskeletal: negative: Neck Pain, Shoulder Pain, Arm Pain, Back Pain, Hand Pain, Leg Pain, Foot Pain, Other - Medications/Allergies Allergies/Adverse Reactions: Allergies Allergy/AdvReac Type Severity Reaction Status Date / Time No Known Allergies Allergy Verified 04/03/18 23:31 Medications: Current Medications Acetaminophen (Tylenol) 650 mg PO Q4H PRN PRN Reason: Headache/Fever/Mild Pain (1-3) Hydrocodone Bitart/Acetaminophen ([place] 5/325) 1 tab PO Q4H PRN PRN Reason: Moderate Pain (4-6) Last Admin: 04/05/18 09:09 Dose: 1 tab Albuterol/Ipratropium (Duoneb) 3 ml NEB [id number] PRN PRN Reason: SOB &/or Wheezing Allopurinol (Zyloprim) 100 mg PO DAILY [facility] Last Admin: 04/06/18 08:41 Dose: 100 mg Artificial Tears (Tears Naturale) 2 drop EA EYE PRN PRN PRN Reason: Dry Eyes Aspirin (Ecotrin) 81 mg PO HS [facility] Last Admin: 04/05/18 21:43 Dose: 81 mg Bisacodyl (Dulcolax) 10 mg PO DAILYPRN PRN PRN Reason: Constipation Dextrose/Water (Dextrose 50%) 25 gm SLOW IVP PRN PRN PRN Reason: Hypoglycemia Dronedarone (Multaq) 400 mg PO BID [facility] Last Admin: 04/06/18 08:42 Dose: 400 mg Epoetin [place] (Procrit) 10,000 units SC Q7D [facility] Last Admin: 04/05/18 12:40 Dose: 10,000 units Escitalopram Oxalate (Lexapro) 5 mg PO HS [facility] Last Admin: 04/05/18 21:42 Dose: 5 mg Famotidine (Pepcid) 20 mg PO DAILY [facility] Last Admin: 04/06/18 08:42 Dose: 20 mg Fenofibrate (Tricor) 145 mg PO HS [facility] Last Admin: 04/05/18 21:43 Dose: 145 mg Glimepiride (Amaryl) 4 mg PO BID [facility] Last Admin: 04/06/18 08:42 Dose: 4 mg Glucagon (Glucagon) 1 mg IM PRN PRN PRN Reason: Hypoglycemia Guaifenesin (Robitussin Sf) 200 mg PO Q4H PRN PRN Reason: Cough Guaifenesin/Dextromethorphan (Robitussin Dm) 15 ml PO Q4H PRN PRN Reason: Cough Hydralazine HCl (Apresoline) 10 mg SLOW IVP Q4H PRN PRN Reason: SBP > 180 and HR < 70 Dextrose/Water (D5w) 1,000 mls @ 0 mls/hr IV .Q0M PRN PRN Reason: Hypoglycemia Insulin Human Lispro (Humalog) 0 units SC .MODERATE SLIDING SC PRN PRN Reason: Moderate Correctional Scale Last Admin: 04/05/18 18:10 Dose: 4 unit Insulin Human Lispro (Humalog) 0 units SC .BEDTIME SLIDING SC PRN PRN Reason: Bedtime Correctional Scale Last Admin: 04/05/18 21:45 Dose: 3 unit Iron/Minerals/Multivitamins (Theragran M) 1 tab PO DAILY [facility] Last Admin: 04/06/18 08:42 Dose: 1 tab Levothyroxine Sodium (Synthroid) 50 mcg PO 0600 [facility] Last Admin: 04/06/18 04:39 Dose: 50 mcg Loperamide HCl (Imodium) 2 mg PO PRN PRN PRN Reason: Diarrhea/Loose Stools Loratadine (Claritin) 10 mg PO DAILYPRN PRN PRN Reason: Sinus Symptoms Metoprolol Tartrate (Lopressor) 100 mg PO BID [facility] Last Admin: 04/06/18 08:53 Dose: Not Given Mineral Oil/White Petrolatum (Eucerin Cream) 0 gm TOP BIDPRN PRN PRN Reason: Dry Skin Nitroglycerin (Nitrostat) 0.4 mg SL Q5MIN PRN PRN Reason: Chest Pain Ondansetron HCl (Zofran Odt) 4 mg PO Q6H PRN PRN Reason: Nausea/Vomiting Ondansetron HCl (Zofran) 4 mg IVP Q6H PRN PRN Reason: Nausea/Vomiting Pioglitazone HCl (Actos) 45 mg PO DAILY [facility] Last Admin: 04/06/18 08:44 Dose: 45 mg Rivaroxaban (Xarelto) 15 mg PO DAILY [facility] Last Admin: 04/06/18 08:42 Dose: 15 mg Senna/Docusate Sodium (Senokot S) 2 tab PO BIDPRN PRN PRN Reason: Constipation Sodium Chloride (Flush - Normal Saline) 10 ml IVF Q12HR [facility] Last Admin: 04/06/18 08:42 Dose: 10 ml Sodium Chloride (Flush - Normal Saline) 10 ml IVF PRN PRN PRN Reason: Saline Flush Last Admin: 04/04/18 06:09 Dose: 10 ml Sodium Chloride ([place] Nasal [place] 0.65%) 0 ml EA NARE QIDPRN PRN PRN Reason: Nasal Congestion Throat Lozenges (Cepastat Lozenges) 1 domenic PO Q2H PRN PRN Reason: Sore Throat Zolpidem Tartrate (Ambien) 5 mg PO HSPRN PRN PRN Reason: Insomnia Last Admin: 04/05/18 21:43 Dose: 5 mg
--- NOTE | 2018-04-06 10:52 | PRG ---
DATE OF SERVICE: 04/06/2018 SUBJECTIVE: An 83-year-old gentleman, being seen for acute kidney injury. The patient denies any nausea, vomiting, or chest pain. OBJECTIVE: CONSTITUTIONAL: The patient is awake and alert. VITAL SIGNS: Afebrile, pulse , breathing 16, and blood pressure 123/57. GENERAL APPEARANCE AND MENTAL STATUS: Fair. HEAD/NECK: Normocephalic. Atraumatic. EYES: EOMI. No deformity. EARS: Clear. No ulcers. NOSE: Intact. No lesions. MOUTH: Clear. No discharge. THROAT: Clear. No exudate. LUNGS: Clear. No crackles. CARDIAC: S1, S2. No rub. ABDOMEN: Benign. Bowel sounds positive. GENITALIA/RECTUM: Jiménez absent. BACK/EXTREMITIES: Edema 0+. NEUROLOGICAL: Alert and motor intact. SKIN: LYMPHATICS: LABORATORY DATA: Labs show hemoglobin 8.5. Creatinine 2.3. ASSESSMENT AND PLAN: 1. Chronic kidney disease, stage 4, stable. 2. Hypertension, stable. 3. Anemia, stable. 4. Medications based on glomerular filtration rate are appropriate. Job ID: [id number]
[2018-04-06] MEDS: HumaLOG 300 UNITS/3 ML VIAL SC PRN ×2 (11:52→17:39)
[2018-04-06] MEDS: Escitalopram Oxalate 10 mg Tablet PO SCH (21:00)
[2018-04-06] MEDS: Fenofibrate Nanocrystallized 145 MG TAB PO SCH (21:00)
[2018-04-06] MEDS: Aspirin 81 mg Enteric Coated Tablet PO SCH (21:00)
[2018-04-06] MEDS: Zolpidem Tartrate 5 MG TAB PO PRN (21:08)
[2018-04-06] MEDS: HYDROcodone/Acetaminophen 5/325 mg Tablet PO PRN (23:06)
[2018-04-07] MEDS: Levothyroxine Sodium 50 MCG TAB PO SCH (05:36)
[2018-04-07] MEDS: Allopurinol 100 MG TAB PO SCH (09:13)
[2018-04-07] MEDS: Dronedarone HCl 400 MG TAB PO SCH ×2 (09:14→21:11)
[2018-04-07] MEDS: Glimepiride 4 MG TAB PO SCH ×2 (09:14→21:11)
[2018-04-07] MEDS: Pioglitazone HCl 45 MG TAB PO SCH (09:14)
[2018-04-07] MEDS: Famotidine 20 MG TAB PO SCH (09:14)
[2018-04-07] MEDS: HumaLOG 300 UNITS/3 ML VIAL SC PRN ×2 (09:15→11:51)
[2018-04-07] MEDS: Rivaroxaban 15 MG TAB PO SCH (09:16)
[2018-04-07] MEDS: Metoprolol Tartrate 100 MG TAB PO SCH ×2 (09:17→21:12)
[2018-04-07] MEDS: Multivitamin W/ Minerals 1 TAB PO SCH (09:17)
--- NOTE | 2018-04-07 11:33 | PDOC.PN ---
- Subjective Encounter Start Date: 04/07/18 Encounter Start Time: 08:30 Patient seen and examined. No new complaints. No overnight events - Objective Resuscitation Status - Order Detail: 04/04/18 03:07 Resuscitation Status Routine Resuscitation Status: FULL: Full Resuscitation MAR Reviewed: Yes Vital Signs & Weight: Vital Signs (12 hours) Temp Pulse Resp BP BP Pulse Ox 04/07/18 08:58 97.6 F 80 18 141/66 H 95 04/07/18 04:00 97.4 F L 81 14 99/57 L 94 L 04/07/18 00:00 82 135/60 Weight Weight 246 lb 4.8 oz I&O: 04/06/18 04/07/18 04/08/18 06:59 06:59 06:59 Intake Total 1920 1560 Output Total 750 200 Balance 1170 1360 Result Diagrams: 04/06/18 04:38 04/06/18 04:38 Additional Labs: Accuchecks 04/07/18 04/07/18 04/06/18 05:40 00:25 16:55 POC Glucose 250 H 268 H 254 H EKG Reviewed by me: Yes (nsr) Phys Exam - Physical Examination Constitutional: NAD HEENT: PERRLA, moist MMs, sclera anicteric Neck: no JVD, supple Respiratory: no wheezing, no rales, no rhonchi Cardiovascular: RRR, no significant murmur, no rub Gastrointestinal: soft, non-tender, no distention, positive bowel sounds Musculoskeletal: no edema, pulses present Neurological: non-focal, normal sensation Psychiatric: normal affect, A&O x 3 Skin: no rash, normal turgor Dx/Plan (1) Acute on chronic diastolic ACC/AHA stage C congestive heart failure Code(s): I50.33 - ACUTE ON CHRONIC DIASTOLIC (CONGESTIVE) HEART FAILURE Status : Acute (2) Acute worsening of stage 3 chronic kidney disease Code(s): N18.3 - CHRONIC KIDNEY DISEASE, STAGE 3 (MODERATE) Status: Acute (3) Elevated troponin Code(s): R74.8 - ABNORMAL LEVELS OF OTHER SERUM ENZYMES Status: Acute (4) Anxiety and depression Code(s): F41.9 - ANXIETY DISORDER, UNSPECIFIED; F32.9 - MAJOR DEPRESSIVE DISORDER, SINGLE EPISODE, UNSPECIFIED Status: Chronic (5) Carotid arterial disease Code(s): I77.9 - DISORDER OF ARTERIES AND ARTERIOLES, UNSPECIFIED Status: Chronic Comment: with history of Left CEA (6) Chronic anticoagulation Code(s): Z79.01 - PAINT AND TABLE EDGER (CURRENT) USE OF ANTICOAGULANTS Status: Chronic (7) DM2 (diabetes mellitus, type 2) Status: Chronic Comment: A1C 8.8, ISS, resume oral hypoglycemics (8) H/O cardiac arrhythmia Code(s): Z86.79 - PERSONAL HISTORY OF OTHER DISEASES OF THE CIRCULATORY SYSTEM Status: Chronic Comment: s/p Ablation and PPM in the past.Test Desk Supervisor is Dr. nolan (9) H/O cardiac pacemaker Code(s): Z95.0 - PRESENCE OF CARDIAC PACEMAKER Status: Chronic (10) HLD (hyperlipidemia) Code(s): E78.5 - HYPERLIPIDEMIA, UNSPECIFIED Status: Chronic (11) HTN (hypertension) Code(s): I10 - ESSENTIAL (PRIMARY) HYPERTENSION Status: Chronic Qualifiers: (12) Hypothyroidism Code(s): E03.9 - HYPOTHYROIDISM, UNSPECIFIED Status: Chronic (13) Liver cirrhosis, alcoholic Code(s): K70.30 - ALCOHOLIC CIRRHOSIS OF LIVER WITHOUT ASCITES Status: Chronic Qualifiers: (14) Moderate tricuspid regurgitation by prior echocardiogram Code(s): I07.1 - RHEUMATIC TRICUSPID INSUFFICIENCY Status: Chronic (15) Obesity (BMI 30.0-34.9) Code(s): E66.9 - OBESITY, UNSPECIFIED Status: Chronic (16) Pulmonary hypertension, moderate to severe Code(s): I27.20 - PULMONARY HYPERTENSION, UNSPECIFIED Status: Chronic (17) Hyperuricemia Code(s): E79.0 - HYPERURICEMIA W/O SIGNS OF INFLAM ARTHRIT AND TOPHACEOUS DIS Status: Acute (18) Stage C chronic diastolic congestive heart failure Code(s): I50.32 - CHRONIC DIASTOLIC (CONGESTIVE) HEART FAILURE Status: Chronic - Plan cont current plan of care, plan discussed w/ family * medication reviewed as below * symptomatic treatment * overall stable * if consultants are ok, will consider discharge. Review of Systems - Review of Systems ENT: negative: Ear Pain, Ear Discharge, Nose Pain, Nose Discharge, Nose Congestion, Mouth Pain, Mouth Swelling, Throat Pain, Throat Swelling, Other Respiratory: negative: Cough, Dry, Shortness of Breath, Hemoptysis, SOB with Excertion, Pleuritic Pain, Sputum, Wheezing Cardiovascular: negative: chest pain, palpitations, orthopnea, paroxysmal nocturnal dyspnea, edema, light headedness, other Gastrointestinal: negative: Nausea, Vomiting, Abdominal Pain, Diarrhea, Constipation, Melena, Hematochezia, Other Genitourinary: negative: Dysuria, Frequency, Incontinence, Hematuria, Retention , Other Musculoskeletal: negative: Neck Pain, Shoulder Pain, Arm Pain, Back Pain, Hand Pain, Leg Pain, Foot Pain, Other - Medications/Allergies Allergies/Adverse Reactions: Allergies Allergy/AdvReac Type Severity Reaction Status Date / Time No Known Allergies Allergy Verified 04/03/18 23:31 Medications: Current Medications Acetaminophen (Tylenol) 650 mg PO Q4H PRN PRN Reason: Headache/Fever/Mild Pain (1-3) Hydrocodone Bitart/Acetaminophen ([place] 5/325) 1 tab PO Q4H PRN PRN Reason: Moderate Pain (4-6) Last Admin: 04/06/18 23:06 Dose: 1 tab Albuterol/Ipratropium (Duoneb) 3 ml NEB [id number] PRN PRN Reason: SOB &/or Wheezing Allopurinol (Zyloprim) 100 mg PO DAILY [facility] Last Admin: 04/07/18 09:13 Dose: 100 mg Artificial Tears (Tears Naturale) 2 drop EA EYE PRN PRN PRN Reason: Dry Eyes Aspirin (Ecotrin) 81 mg PO [facility] Last Admin: 04/06/18 21:00 Dose: 81 mg Bisacodyl (Dulcolax) 10 mg PO DAILYPRN PRN PRN Reason: Constipation Dextrose/Water (Dextrose 50%) 25 gm SLOW IVP PRN PRN PRN Reason: Hypoglycemia Dronedarone (Multaq) 400 mg PO BID [facility] Last Admin: 04/07/18 09:14 Dose: 400 mg Epoetin [place] (Procrit) 10,000 units SC Q7D [facility] Last Admin: 04/05/18 12:40 Dose: 10,000 units Escitalopram Oxalate (Lexapro) 5 mg PO HS [facility] Last Admin: 04/06/18 21:00 Dose: 5 mg Famotidine (Pepcid) 20 mg PO DAILY [facility] Last Admin: 04/07/18 09:14 Dose: 20 mg Fenofibrate (Tricor) 145 mg PO [facility] Last Admin: 12/19/18 21:00 Dose: 145 mg Glimepiride (Amaryl) 4 mg PO BID [facility] Last Admin: 04/07/18 09:14 Dose: 4 mg Glucagon (Glucagon) 1 mg IM PRN PRN PRN Reason: Hypoglycemia Guaifenesin (Robitussin Sf) 200 mg PO Q4H PRN PRN Reason: Cough Guaifenesin/Dextromethorphan (Robitussin Dm) 15 ml PO Q4H PRN PRN Reason: Cough Hydralazine HCl (Apresoline) 10 mg SLOW IVP Q4H PRN PRN Reason: SBP > 180 and HR < 70 Dextrose/Water (D5w) 1,000 mls @ 0 mls/hr IV .Q0M PRN PRN Reason: Hypoglycemia Insulin Human Lispro (Humalog) 0 units SC .MODERATE SLIDING SC PRN PRN Reason: Moderate Correctional Scale Last Admin: 04/07/18 09:15 Dose: 4 unit Insulin Human Lispro (Humalog) 0 units SC .BEDTIME SLIDING SC PRN PRN Reason: Bedtime Correctional Scale Last Admin: 04/05/18 21:45 Dose: 3 unit Iron/Minerals/Multivitamins (Theragran M) 1 tab PO DAILY [facility] Last Admin: 04/07/18 09:17 Dose: 1 tab Levothyroxine Sodium (Synthroid) 50 mcg PO 0600 [facility] Last Admin: 04/07/18 05:36 Dose: 50 mcg Loperamide HCl (Imodium) 2 mg PO PRN PRN PRN Reason: Diarrhea/Loose Stools Loratadine (Claritin) 10 mg PO DAILYPRN PRN PRN Reason: Sinus Symptoms Metoprolol Tartrate (Lopressor) 100 mg PO BID [facility] Last Admin: 04/07/18 09:17 Dose: 100 mg Mineral Oil/White Petrolatum (Eucerin Cream) 0 gm TOP BIDPRN PRN PRN Reason: Dry Skin Nitroglycerin (Nitrostat) 0.4 mg SL Q5MIN PRN PRN Reason: Chest Pain Ondansetron HCl (Zofran Odt) 4 mg PO Q6H PRN PRN Reason: Nausea/Vomiting Ondansetron HCl (Zofran) 4 mg IVP Q6H PRN PRN Reason: Nausea/Vomiting Pioglitazone HCl (Actos) 45 mg PO DAILY [facility] Last Admin: 04/07/18 09:14 Dose: 45 mg Rivaroxaban (Xarelto) 15 mg PO DAILY [facility] Last Admin: 04/07/18 09:16 Dose: 15 mg Senna/Docusate Sodium (Senokot S) 2 tab PO BIDPRN PRN PRN Reason: Constipation Sodium Chloride (Flush - Normal Saline) 10 ml IVF Q12HR [facility] Last Admin: 04/06/18 21:03 Dose: 10 ml Sodium Chloride (Flush - Normal Saline) 10 ml IVF PRN PRN PRN Reason: Saline Flush Last Admin: 04/04/18 06:09 Dose: 10 ml Sodium Chloride ([place] Nasal [place] 0.65%) 0 ml EA NARE QIDPRN PRN PRN Reason: Nasal Congestion Throat Lozenges (Cepastat Lozenges) 1 domenic PO Q2H PRN PRN Reason: Sore Throat Zolpidem Tartrate (Ambien) 5 mg PO HSPRN PRN PRN Reason: Insomnia Last Admin: 04/06/18 21:08 Dose: 5 mg
[2018-04-07 11:46] VITALS: BMI 33.4
--- NOTE | 2018-04-07 12:54 | DIS ---
DATE OF ADMISSION: 04/03/2018 DATE OF DISCHARGE: 04/07/2018 PRIMARY CARE PHYSICIAN: Dr. Le Head. DISCHARGE DISPOSITION: Home. PRIMARY DISCHARGE DIAGNOSES: 1. Acute on chronic diastolic stage C congestive heart failure. 2. Acute on chronic kidney failure. 3. Elevated troponin. 4. Hyperuricemia. SECONDARY DISCHARGE DIAGNOSES: 1. Chronic stage C diastolic heart failure. 2. Pulmonary hypertension. 3. Obesity with BMI 33. 4. Moderate tricuspid regurgitation. 5. History of alcoholic cirrhosis. 6. Hypothyroidism. 7. Hypertension. 8. Dyslipidemia. 9. History of cardiac pacemaker. 10. Diabetes type 2. 11. Carotid artery disease. 12. Anxiety and depression. PRIMARY PROCEDURE/OPERATION: None. RADIOLOGICAL INVESTIGATION: Chest x-ray on admission showed no acute process. Echocardiography by the time of discharge result is pending. SIGNIFICANT LABORATORY DATA: WBC 7.9, hemoglobin 8.5, and platelet 279. Sodium 133, potassium 3.7, BUN 53, creatinine 2.33, and calcium 8.7. Uric acid 9.4. Urinalysis unremarkable. Digoxin level less than 0.15. Blood culture, urine culture negative. DISCHARGE MEDICATION: 1. Ecotrin 81 mg at bedtime. 2. Multaq 400 mg p.o. b.i.d. 3. Lexapro 5 mg p.o. at bedtime. 4. Trilipix 135 mg p.o. at bedtime. 5. Lasix 40 mg daily. 6. Glimepiride 4 mg p.o. b.i.d. 7. Levothyroxine 50 mcg p.o. daily. 8. Lopressor 100 mg p.o. b.i.d. 9. Multivitamin 1 tablet p.o. daily. 10. Actos 45 mg p.o. daily. 11. Xarelto 15 mg daily. 12. Allopurinol 100 mg p.o. daily. CONTRAINDICATION: None. CODE STATUS: Full code. INPATIENT POST PARTUM NURSE: Dr. Gutiérrez was following while in the hospital. Dr. Palafox was consulted while in hospital. TEST RESULTS PENDING ON DISCHARGE: Echocardiography. DISCHARGE PLAN: Posthospital, the patient will follow up with primary care physician, Dr. Palafox and Dr. Gutiérrez as instructed. HOSPITAL COURSE: An 83-year-old male with above-mentioned medical problem, who was admitted by Dr. Villegas, please see his H and P for further details. The patient was having generalized weakness and shortness of breath. The patient had elevated BNP. He was found with CHF exacerbation, based on clinical presentation with lower extremity edema, orthopnea, and shortness of breath. His chest x-ray was not impressive. The patient was treated with Lasix. While in the hospital, because of the treatment, his renal function initially got worse and subsequently, he improved towards baseline. The patient had orthostatic vitals positive and that is why we hold the Lasix therapy and blood pressure medication for 1 day and then that medication resumed upon discharge. The patient is doing very well. He did very well with physical therapy. Echocardiography done during this admission per Cardiology recommendation, but result is pending. Overall, the patient is doing very well. His renal function is stable and he is given instruction to follow up with Nephrology as well as Cardiology. Plan of care discussed with the patient's at bedside. The patient is seen and examined at bedside today. Please see my progress note from today for further detail. If all consultants agreed, then we will consider discharging him home later on today. Job ID: [id number]
[2018-04-07 15:59] LABS: Anion Gap 16 mmol/L (10-20); BUN (Urea Nitrogen) 50 mg/dL (8.4-25.7); Calc. Creatinine Clearance 38 mL/min (70-130); Calcium 9.1 mg/dL (7.8-10.44); Carbon Dioxide 24 mmol/L (23-31); Chloride 102 mmol/L (98-107); Estimated GFR-MDRD 27; Glucose 137 mg/dL (83-110); Potassium 3.7 mmol/L (3.5-5.1); Sodium 138 mmol/L (136-145)
--- NOTE | 2018-04-07 16:39 | PRG ---
DATE OF SERVICE: 04/05/2018 SUBJECTIVE: Mr. Ureña seems to be doing a little better. His hemoglobin increased. His overall heart function appears normal. He still continues to be weak. OBJECTIVE: VITAL SIGNS: Blood pressure 117/58, pulse 80, and temperature 96.8. LUNGS: Clear to auscultation. HEART: Regular rate and rhythm. ABDOMEN: Soft, nontender, and nondistended. EXTREMITIES: No edema. IMPRESSION: 1. Weakness, fatigue. 2. Diastolic dysfunction. 3. Anemia. 4. Chronic kidney disease. RECOMMENDATIONS: Mr. Ureña appears to be stable. His hemoglobin has increased from 7.5 to 8.5. His main complaint has been profound weakness. From a CV standpoint, I have no etiology. His LVEF appears normal. Recommend followup with me in the next 3 to 4 weeks. Otherwise, I have no recommendations. Please re-consult if needed. Job ID: [id number]
--- NOTE | 2018-04-07 18:45 | PRG ---
DATE OF SERVICE: 04/07/2018 SUBJECTIVE: An 83-year-old gentleman, being seen for acute kidney injury. The patient denies any nausea, vomiting, or chest pain. OBJECTIVE: CONSTITUTIONAL: The patient is awake and alert. VITAL SIGNS: Afebrile, pulse 80, breathing 16, blood pressure 106/50. GENERAL APPEARANCE AND MENTAL STATUS: Fair. HEAD/NECK: Normocephalic, atraumatic. EYES: EOMI. No deformity. EARS: Clear. No ulcers. NOSE: Intact. No lesions. MOUTH: Clear. No discharge. THROAT: Clear. No exudate. LUNGS: Clear. No crackles. CARDIAC: S1, S2. No rub. ABDOMEN: Benign. Bowel sounds positive. GENITALIA/RECTUM: Jiménez absent. BACK/EXTREMITIES: Edema 0+. NEUROLOGICAL: Alert and motor intact. LABORATORY DATA: Labs show hemoglobin 8.5. Creatinine 2.3. ASSESSMENT AND PLAN: 1. Chronic kidney disease, stage 4, stable. 2. Hypertension, stable. 3. Autonomic dysfunction and orthostatic hypotension, stable. Job ID: [id number]
[2018-04-07] MEDS: Fenofibrate Nanocrystallized 145 MG TAB PO SCH (21:10)
[2018-04-07] MEDS: Aspirin 81 mg Enteric Coated Tablet PO SCH (21:11)
[2018-04-07] MEDS: Escitalopram Oxalate 10 mg Tablet PO SCH (21:11)
[2018-04-08] MEDS: HumaLOG 300 UNITS/3 ML VIAL SC PRN ×2 (00:25→09:10)
[2018-04-08 05:33] LABS: Hemoglobin 8.9 g/dL (14.0-18.0); Platelet Count 265 thou/uL (130-400)
[2018-04-08 05:48] LABS: Anion Gap 14 mmol/L (10-20); BUN (Urea Nitrogen) 57 mg/dL (8.4-25.7); Calc. Creatinine Clearance 36 mL/min (70-130); Calcium 9.1 mg/dL (7.8-10.44); Carbon Dioxide 25 mmol/L (23-31); Chloride 102 mmol/L (98-107); Estimated GFR-MDRD 26; Glucose 185 mg/dL (83-110); Potassium 3.9 mmol/L (3.5-5.1); Sodium 137 mmol/L (136-145)
[2018-04-08] MEDS: Levothyroxine Sodium 50 MCG TAB PO SCH (06:02)
[2018-04-08 08:20] VITALS: BP 147/67; TEMP 98.1
[2018-04-08] MEDS: Glimepiride 4 MG TAB PO SCH (09:09)
[2018-04-08] MEDS: Pioglitazone HCl 45 MG TAB PO SCH (09:09)
[2018-04-08] MEDS: Famotidine 20 MG TAB PO SCH (09:10)
[2018-04-08] MEDS: Metoprolol Tartrate 100 MG TAB PO SCH (09:10)
[2018-04-08] MEDS: Multivitamin W/ Minerals 1 TAB PO SCH (09:10)
[2018-04-08] MEDS: Dronedarone HCl 400 MG TAB PO SCH (09:10)
[2018-04-08] MEDS: Allopurinol 100 MG TAB PO SCH (09:10)
[2018-04-08] MEDS: Rivaroxaban 15 MG TAB PO SCH (09:10)
--- NOTE | 2018-04-08 11:12 | PDOC.PN ---
- Subjective Encounter Start Date: 04/08/18 Encounter Start Time: 07:50 Patient seen and examined. No new complaints. No overnight events - Objective Resuscitation Status - Order Detail: 04/04/18 03:07 Resuscitation Status Routine Resuscitation Status: FULL: Full Resuscitation MAR Reviewed: Yes Vital Signs & Weight: Vital Signs (12 hours) Temp Pulse Resp BP Pulse Ox 04/08/18 07:33 98.1 F 81 16 147/67 H 96 04/08/18 04:00 97 F L 80 20 102/53 L 95 Weight Weight 243 lb I&O: 04/07/18 04/08/18 04/09/18 06:59 06:59 06:59 Intake Total 1560 1120 Output Total 200 460 Balance 1360 660 Result Diagrams: 04/08/18 04:51 04/08/18 04:51 Additional Labs: Accuchecks 04/08/18 04/08/18 04/07/18 05:56 00:13 16:56 POC Glucose 202 H 280 H 103 04/07/18 11:48 POC Glucose 320 H EKG Reviewed by me: Yes (nsr) Phys Exam - Physical Examination Constitutional: NAD HEENT: PERRLA, moist MMs, sclera anicteric Neck: no JVD, supple Respiratory: no wheezing, no rales, no rhonchi Cardiovascular: RRR, no significant murmur, no rub Gastrointestinal: soft, non-tender, no distention, positive bowel sounds Musculoskeletal: no edema, pulses present Neurological: non-focal, normal sensation Lymphatic: no nodes Psychiatric: normal affect Skin: no rash, normal turgor Dx/Plan (1) Acute on chronic diastolic ACC/AHA stage C congestive heart failure Code(s): I50.33 - ACUTE ON CHRONIC DIASTOLIC (CONGESTIVE) HEART FAILURE Status : Acute (2) Acute worsening of stage 3 chronic kidney disease Code(s): N18.3 - CHRONIC KIDNEY DISEASE, STAGE 3 (MODERATE) Status: Acute (3) Elevated troponin Code(s): R74.8 - ABNORMAL LEVELS OF OTHER SERUM ENZYMES Status: Acute (4) Anxiety and depression Code(s): F41.9 - ANXIETY DISORDER, UNSPECIFIED; F32.9 - MAJOR DEPRESSIVE DISORDER, SINGLE EPISODE, UNSPECIFIED Status: Chronic (5) Carotid arterial disease Code(s): I77.9 - DISORDER OF ARTERIES AND ARTERIOLES, UNSPECIFIED Status: Chronic Comment: with history of Left CEA (6) Chronic anticoagulation Code(s): Z79.01 - MCC (CURRENT) USE OF ANTICOAGULANTS Status: Chronic (7) DM2 (diabetes mellitus, type 2) Status: Chronic Comment: A1C 8.8, ISS, resume oral hypoglycemics (8) H/O cardiac arrhythmia Code(s): Z86.79 - PERSONAL HISTORY OF OTHER DISEASES OF THE CIRCULATORY SYSTEM Status: Chronic Comment: s/p Ablation and PPM in the past.Inside Upholsterer is Dr. nolan (9) H/O cardiac pacemaker Code(s): Z95.0 - PRESENCE OF CARDIAC PACEMAKER Status: Chronic (10) HLD (hyperlipidemia) Code(s): E78.5 - HYPERLIPIDEMIA, UNSPECIFIED Status: Chronic (11) HTN (hypertension) Code(s): I10 - ESSENTIAL (PRIMARY) HYPERTENSION Status: Chronic Qualifiers: (12) Hypothyroidism Code(s): E03.9 - HYPOTHYROIDISM, UNSPECIFIED Status: Chronic (13) Liver cirrhosis, alcoholic Code(s): K70.30 - ALCOHOLIC CIRRHOSIS OF LIVER WITHOUT ASCITES Status: Chronic Qualifiers: (14) Moderate tricuspid regurgitation by prior echocardiogram Code(s): I07.1 - RHEUMATIC TRICUSPID INSUFFICIENCY Status: Chronic (15) Obesity (BMI 30.0-34.9) Code(s): E66.9 - OBESITY, UNSPECIFIED Status: Chronic (16) Pulmonary hypertension, moderate to severe Code(s): I27.20 - PULMONARY HYPERTENSION, UNSPECIFIED Status: Chronic (17) Hyperuricemia Code(s): E79.0 - HYPERURICEMIA W/O SIGNS OF INFLAM ARTHRIT AND TOPHACEOUS DIS Status: Acute (18) Stage C chronic diastolic congestive heart failure Code(s): I50.32 - CHRONIC DIASTOLIC (CONGESTIVE) HEART FAILURE Status: Chronic - Plan cont current plan of care, plan discussed w/ family * medication reviewed as below * symptomatic treatment * see my discharge veronika. Review of Systems - Review of Systems ENT: negative: Ear Pain, Ear Discharge, Nose Pain, Nose Discharge, Nose Congestion, Mouth Pain, Mouth Swelling, Throat Pain, Throat Swelling, Other Respiratory: negative: Cough, Dry, Shortness of Breath, Hemoptysis, SOB with Excertion, Pleuritic Pain, Sputum, Wheezing Cardiovascular: negative: chest pain, palpitations, orthopnea, paroxysmal nocturnal dyspnea, edema, light headedness, other Gastrointestinal: negative: Nausea, Vomiting, Abdominal Pain, Diarrhea, Constipation, Melena, Hematochezia, Other Genitourinary: negative: Dysuria, Frequency, Incontinence, Hematuria, Retention , Other Musculoskeletal: negative: Neck Pain, Shoulder Pain, Arm Pain, Back Pain, Hand Pain, Leg Pain, Foot Pain, Other Skin: negative: Rash, Lesions, Shahbaz, Bruising, Other - Medications/Allergies Allergies/Adverse Reactions: Allergies Allergy/AdvReac Type Severity Reaction Status Date / Time No Known Allergies Allergy Verified 04/03/18 23:31
--- NOTE | 2018-04-08 12:21 | DIS ---
DATE OF ADMISSION: 04/03/2018 DATE OF DISCHARGE: 04/08/2018 PRIMARY CARE PHYSICIAN: Dr. eL Head. HOSPITAL COURSE: Please see my discharge summary dictated yesterday for more details. There is no change in my discharge summary from yesterday. The patient stayed overnight because systems security consultant wanted to watch him one more night. Today, his labs are unremarkable. His hemoglobin is 8.9, creatinine is 2.4. The patient is doing very well. The patient is seen and examined at bedside today. Please see my progress note for further detail. Job ID: [id number]
--- NOTE | 2018-04-08 18:32 | PRG ---
DATE OF SERVICE: 04/08/2018 SUBJECTIVE: An 83-year-old gentleman, being seen for acute kidney injury. The patient denies any nausea, vomiting, or chest pain. OBJECTIVE: CONSTITUTIONAL: The patient is awake and alert. VITAL SIGNS: Afebrile, pulse 81, breathing 16, blood pressure 147/60. GENERAL APPEARANCE AND MENTAL STATUS: Fair. HEAD/NECK: Normocephalic, atraumatic. EYES: EOMI. No deformity. EARS: Clear. No ulcers. NOSE: Intact. No lesions. MOUTH: Clear. No discharge. THROAT: Clear. No exudate. LUNGS: Clear. No crackles. CARDIAC: S1, S2. No rub. ABDOMEN: Benign. Bowel sounds positive. GENITALIA/RECTUM: Jiménez absent. BACK/EXTREMITIES: Edema 0+. NEUROLOGICAL: Alert and motor intact. SKIN: LYMPHATICS: LABORATORY DATA: Labs show hemoglobin 8.9. Creatinine 2.4. ASSESSMENT AND PLAN: 1. Chronic kidney disease, stage 4, stable. 2. Hypertension, stable. 3. Anemia, stable. 4. Medications based on glomerular filtration rate are appropriate. Job ID: [id number]
== END 2018-04-08 11:09 | disposition home or self-care (01) | DRG 291 ==
LOC: ERS 17:52 → 2SW 23:10 → 2NO 04-06 18:17
PROVIDERS: ADMIT Internal Medicine; ATTEND Internal Medicine
DX: I13.0 Hypertensive heart and chronic kidney disease with heart failure and stage 1 through stage 4 chronic kidney disease, or unspecified chronic kidney disease (principal); I50.31 Acute diastolic (congestive) heart failure; N17.9 Acute kidney failure, unspecified; N18.4 Chronic kidney disease, stage 4 (severe); E11.22 Type 2 diabetes mellitus with diabetic chronic kidney disease; I48.91 Unspecified atrial fibrillation; Z95.0 Presence of cardiac pacemaker; I27.20 Pulmonary hypertension, unspecified; F41.9 Anxiety disorder, unspecified; F32.9 Major depressive disorder, single episode, unspecified; Z79.899 Other long term (current) drug therapy; Z79.01 Long term (current) use of anticoagulants; Z79.82 Long term (current) use of aspirin; E66.01 Morbid (severe) obesity due to excess calories; D64.9 Anemia, unspecified; E79.0 Hyperuricemia without signs of inflammatory arthritis and tophaceous disease; Z68.33 Body mass index [BMI] 33.0-33.9, adult; E78.5 Hyperlipidemia, unspecified; I07.1 Rheumatic tricuspid insufficiency; I65.29 Occlusion and stenosis of unspecified carotid artery; E03.9 Hypothyroidism, unspecified; R74.8 Abnormal levels of other serum enzymes; K70.30 Alcoholic cirrhosis of liver without ascites
CPT/HCPCS: 36415; 36416; 71045; 80048; 80053; 80069; 80162; 81003; 82550; 82553; 83605; 83690; 83735; 83880; 84100; 84443; 84484; 84550; 85014; 85018; 85025; 85049; 87040; 87086; 93005; 93306; 93798; 96374; G8978-GP-CI; G8979-GP-CI; G8980-GP-CI; J1940; Q4081

== ENCOUNTER 2018-04-10 00:15 | Observation (INO) | payer MEDICARE ==
[2018-04-10] MEDS ORDERED: Furosemide 40 MG/4 ML VIAL ONE (00:42)
[2018-04-10] MEDS ORDERED: Acetaminophen 325 MG TAB PO PRN (01:06)
[2018-04-10] MEDS ORDERED: Melatonin 3 MG TAB PO PRN (01:08)
[2018-04-10] MEDS ORDERED: ALPRAZolam 0.25 MG TAB PO SCH ×2 (01:15→21:00)
[2018-04-10] MEDS ORDERED: Dextrose 50% Abboject 50 ML SYRINGE SLOW IVP PRN (01:15)
[2018-04-10] MEDS ORDERED: Dextrose 5% in Water 1,000 ML IV PRN (01:15)
[2018-04-10] MEDS ORDERED: Sodium Chloride 0.9% 500 ML IV SCH (01:30)
[2018-04-10 01:43] LABS: CKMB 1.4 ng/mL (0-6.6)
[2018-04-10] MEDS ORDERED: HumaLOG 300 UNITS/3 ML VIAL SC SCH (03:00)
--- NOTE | 2018-04-10 04:04 | HP ---
CHIEF COMPLAINT: Shortness of breath. HISTORY OF PRESENT ILLNESS: The patient is a very pleasant 83-year-old male with past medical history of diastolic heart failure, atrial fibrillation, diabetes, who presented to the hospital with shortness of breath. The patient was just recently discharged from the hospital on 04/08/2018 with similar problems of shortness of breath. The patient was seen by Cardiology and by Nephrology in regard to his shortness of breath. The patient was treated for acute on chronic diastolic heart failure and also acute on chronic kidney failure. The patient was treated with IV diuretics and per , who is at the bedside, stated that when they would walk him, his saturations would be 96% to 97%. However, the patient would feel very short of breath. The patient on discharge per the discharge note stated that he was orthostatic and the decision was done to hold the diuretics upon discharge. The patient also had an echocardiogram done, which indicated an EF of 50% to 55% and his left atrium was severely dilated. [id number] mitral regurgitation. The patient's who is at the bedside states that the patient has been having significant shortness of breath on exertion. The patient, however, has been sleeping flat and denies any orthopnea or PND. Denies any increase of leg swelling. The patient's did state that today he did drink a lot of water. However, normally he is very adherent to his diet and water intake. He denies any chest pain or chest discomfort, any nausea, vomiting, or diarrhea, any headaches, any fevers, any cough. PAST MEDICAL HISTORY: 1. Hypertension. 2. Diabetes. 3. Chronic kidney disease. 4. Atrial fibrillation. 5. Diastolic heart failure. 6. He has got a pacemaker for his atrial fibrillation. FAMILY HISTORY: No history of heart disease. PAST SURGICAL HISTORY: He has had a cardiac ablation, cardioversion, status post pacemaker, and left elbow surgery. REVIEW OF SYSTEMS: All negative except for the ones mentioned above in the HPI. SOCIAL HISTORY: The patient denies any alcohol use, drug use, or smoking history. He is, however, a former smoker and used to smoke a pack a day. ALLERGIES: NO KNOWN DRUG ALLERGIES. CURRENT MEDICATIONS: They are essentially the same. However, from the discharge, they are as the followin. Aspirin 81 mg daily. 2. Multaq 400 mg b.i.d. 3. Lexapro 5 mg at bedtime. 4. Lasix 40 mg daily. 5. Glimepiride 4 mg b.i.d. 6. Levothyroxine 50 mcg daily. 7. Lopressor 100 mg b.i.d. 8. Multivitamin one tab p.o. daily. 9. Actos 45 mg p.o. daily. 10. Zoloft 50 mg daily. 11. Allopurinol 100 mg daily. PHYSICAL EXAMINATION: VITAL SIGNS: Temperature of 98.8, heart rate of 80, blood pressure 117/60, respirations of 18, saturating 100% on 2 L. GENERAL: He is awake, alert, and oriented x3. Does not appear in any distress. CV: S1 and S2 present. Irregularly irregular. LUNGS: Clear upon auscultation. No wheezing. No rhonchi. No crackles noted. ABDOMEN: Soft and nontender. Bowel sounds are present x2. No lower extremity edema. HEENT: The patient's mucous membranes appear to be mildly dehydrated. No JVD is noted. SKIN: He does have significant amount of bruising to bilateral upper extremities from his blood draws. NEUROLOGIC: No focal deficits noted. LABORATORY DATA: Laboratory results were of the following: WBCs of 7.6, hemoglobin of 8.8, hematocrit of 26.7, platelets of 282. Chemistries, sodium of 130, potassium of 4.3, BUN of 62, creatinine of 2.90. Glucose was 564. His AST was 723 and ALT was 427, which is significantly elevated from his previous one. His BNP was 1724. His troponin was 0.27. His chest x-ray indicated chronic changes, nothing acute was noted. ASSESSMENT AND PLAN: The patient is a very pleasant 83-year-old male who presents to the hospital with complaints of shortness of breath. 1. Shortness of breath. Differential could be secondary either congestive heart failure exacerbation versus possible chronic obstructive pulmonary disease exacerbation versus possible anxiety. The patient clinically does not appear to be volume overloaded even though his proBNP seems to be elevated. He has got no lower extremity edema, no jugular venous distension and no crackles that are noted. I will actually give him 500 mL of normal saline over a few hours and continue to monitor. I will also get a CT chest just to kind of see status of his lungs. The patient's stated that he did have pulmonary function tests and she said that he does not have chronic obstructive pulmonary disease. However, this man has a significant smoking history. Also, he does not have any wheezing on exam. Also, I thought initially we would probably do a computed tomography angiography. However, given his worsening creatinine, I do not think that will be an option. He is on Xarelto for atrial fibrillation. I will also consult Cardiology and Nephrology, may need to interrogate his pacemaker to make sure that there is no tachycardia that is causing him to have shortness of breath. When the patient is ambulated, his oxygen saturations are normal. However, he also still feels short of breath. We will also add some Xanax. The patient's did state that he does have significant anxiety, which might help with his feeling of shortness of breath. 2. Elevated liver function tests. We will also get a right upper quadrant ultrasound. This could be possibly secondary to mild dehydration. We will see if his elevated liver enzymes improve. 3. Acute kidney injury on chronic kidney disease, worsening creatinine of 2.9 from baseline of 2.2. Again, we will start some gentle hydration and see if this helps the patient. 4. Hyperglycemia. The patient's glucose was found to be 564. He was given 80 units in the ER. His repeat sugar is 408. We will start the patient on some sliding scale insulin. Also, check hemoglobin A1c, giving him some hydration may also help. 5. Mildly elevated troponins. Again, this could be secondary to his underlying issue. We will continue to monitor. Job ID: [id number]
[2018-04-10 05:10] LABS: #Eosinphils 0.1 thou/uL (0.0-0.7); #Lymphocytes 0.7 thou/uL (1.20-3.40); #Monocytes 0.6 thou/uL (0.11-0.59); #Neutrophils 4.4 thou/uL (1.40-6.50); %Basophils 0.4 % (0.0-1.0); %Eosinophils 1.8 % (0.0-10.0); %Lymphocytes 12.5 % (21.0-51.0); %Monocytes 10.8 % (0.0-10.0); %Neutrophils 74.6 % (42.0-75.0); Hemoglobin 8.4 g/dL (14.0-18.0); Mean Corpuscular Hemoglobin 32.4 pg (27.0-31.0); Mean Corpuscular Volume 98.2 fL (78.0-98.0); Platelet Count 243 thou/uL (130-400); RBC Distribution Width 14.4 % (11.5-14.5); Red Blood Cell (RBC) Count 2.59 mill/uL (4.70-6.10); White Blood Cell (WBC) Count 5.9 thou/uL (4.8-10.8)
[2018-04-10 05:24] LABS: Anion Gap 13 mmol/L (10-20); BUN (Urea Nitrogen) 58 mg/dL (8.4-25.7); Calc. Creatinine Clearance 34 mL/min (70-130); Calcium 8.9 mg/dL (7.8-10.44); Carbon Dioxide 24 mmol/L (23-31); Chloride 100 mmol/L (98-107); Estimated GFR-MDRD 23; Glucose 216 mg/dL (83-110); Potassium 3.4 mmol/L (3.5-5.1); Sodium 134 mmol/L (136-145)
[2018-04-10 05:30] LABS: Troponin I 0.326 ng/mL (< 0.028)
[2018-04-10 06:27] LABS: ALT (SGPT) 356 U/L (8-55); AST (SGOT) 508 U/L (5-34); Albumin 3.4 g/dL (3.4-4.8); Alkaline Phosphatase 60 U/L (40-150); Bilirubin, Direct 0.6 mg/dL (0.1-0.3); Bilirubin, Total 0.9 mg/dL (0.2-1.2); Protein, Total 6.7 g/dL (5.8-8.1)
[2018-04-10] MEDS: Levothyroxine Sodium 50 MCG TAB PO SCH (07:21)
[2018-04-10 07:52] LABS: Troponin I 0.336 ng/mL (< 0.028)
[2018-04-10] MEDS: Allopurinol 100 MG TAB PO SCH (08:48)
[2018-04-10] MEDS: Dronedarone HCl 400 MG TAB PO SCH ×2 (08:48→20:09)
[2018-04-10 08:56] LABS: Hemoglobin A1c 7.3 % (4.0-6.0)
[2018-04-10] MEDS ORDERED: Metoprolol Tartrate 100 MG TAB PO SCH (09:00)
[2018-04-10] MEDS ORDERED: Furosemide 40 MG TAB PO SCH (09:00)
--- NOTE | 2018-04-10 09:43 | CT ---
PRELIMINARY REPORT/[facility]/EMERGENTY AFTER-HOURS PROCEDURE CT Chest Without Contrast EXAM DATE/TIME: 04/10/2018 2:01 AM CLINICAL HISTORY: 83 years old, male; Signs and symptoms; Dyspnea; Patient HX: Patient xfer from [facility] presente d for SOB. Elevated trop of .025. M83 presents ed for SOB. PT [facility] PT. Reports issue is worse today. PT reports lower extremities edema. PT denies chest pain. PT reports uncontrolled diabetes. TECHNIQUE: Axial computed tomography images of the chest without intravenous contrast. Coronal reformatted images were created and reviewed. COMPARISON: No relevant prior studies available. FINDINGS: Lungs: Minimal predominantly dependent groundglass attenuation and interlobular septal thickening. Mi ld left apical scarring. Right lower lobe 1.4 cm nodule. No consolidation. Pleural space: Small bilateral pleural effusions. Heart: Coronary calcifications. Aortic valvular calcifications. Pacemaker. No significant pericardial effusion. Aorta: Unremarkable. No aortic aneurysm. Lymph nodes: Subcentimeter mediastinal lymph nodes. Bones/joints: Unremarkable. No acute fracture. Soft tissues: Unremarkable. Upper abdomen: Nodular liver margins. Small amounts of perihepatic and perisplenic fluid. IMPRESSION: 1. Small bilateral pleural effusions. Minimal predominantly dependent interstitial opacities may repr esent early edema. 2. Right lower lobe 1.4 cm nodule. 3. Small amount of ascites in the upper abdomen. Thank you for allowing us to participate in the care of your patient. Dictated and Authenticated by: Colin Garner MD 04/10/2018 3:04 AM Central Time ([place] & [place]) FINAL REPORT CT CHEST WITHOUT CONTRAST: Date: 04/10/18 FINDINGS/IMPRESSION: I agree with the preliminary report given by Malorie. Recommend evaluation of the 1.4 cm right lower lobe lung nodule with a PET scan. CODE LN. CODE T. POS: [facility]
[2018-04-10] MEDS: Rivaroxaban 15 MG TAB PO SCH (10:51)
[2018-04-10] MEDS ORDERED: Sodium Chloride 0.9% 250 ML 250 ML IVPB SCH (12:00)
--- NOTE | 2018-04-10 13:03 | PDOC.EVN ---
Event Note - Event Note Event Note: Good O2 saturation, no wheezes or pedal edema. Not tolerating anti hypertensives and lasix, hold it for now, titrate the meds according to BP. Please see H and P by Dr. Contreras
[2018-04-10 15:12] LABS: Iron 30 ug/dL (65-175); Iron Binding Capacity, Total 441 mcg/dL (261-462)
[2018-04-10] MEDS: HumaLOG 300 UNITS/3 ML VIAL SC PRN (17:18)
[2018-04-10] MEDS ORDERED: HumaLOG 300 UNITS/3 ML VIAL SC PRN (20:33)
--- NOTE | 2018-04-10 20:39 | CON ---
DATE OF CONSULTATION: NEPHROLOGY CONSULTATION REASON FOR CONSULTATION: Elevated creatinine. HISTORY OF PRESENT ILLNESS: This is a very pleasant 83-year-old gentleman with history of CHF, who presented to the hospital with a baseline creatinine of 2.4, which increased to 2.8. After shortness of breath, the patient was diuresed. Creatinine did improve to 2.6. The patient denies headache, numbness, tingling, or weakness. Denies any nausea, vomiting, or chest pain. PAST MEDICAL HISTORY: Significant for hypertension, diabetes mellitus, acute kidney disease, CKD stage 4, atrial fibrillation, history of cardiac ablation, pacemaker, elbow surgery. SOCIAL HISTORY: No alcohol or drug use. FAMILY HISTORY: Negative for ESRD. ALLERGIES: REVIEWED. MEDICATIONS: Home medication list reviewed. REVIEW OF SYSTEMS: A 15-point review of system was performed and was negative except for positives noted above. NECK: No swelling or lumps. NOSE: No epistaxis or discharge. EYES: No diplopia or pain. MUSCULOSKELETAL: No joint pain. NEUROPSYCHIATRIC SYSTEMS: No suicidal ideation. No ideation. SKIN: Denies any rash or ulcer. CONSTITUTIONAL: No fever or chills. PHYSICAL EXAMINATION: CONSTITUTIONAL: The patient is awake and alert. VITAL SIGNS: Afebrile, pulse 80, breathing 16, blood pressure 117/60. GENERAL APPEARANCE AND MENTAL STATUS: Fair. HEAD/NECK: Normocephalic. Atraumatic. EYES: EOMI. No deformity. EARS: Clear. No ulcers. NOSE: Intact. No lesions. MOUTH: Clear. No discharge. THROAT: Clear. No exudate. LUNGS: Clear. No crackles. CARDIAC: S1, S2. No rub. ABDOMEN: Benign. Bowel sounds positive. GENITALIA/RECTUM: Jiménez absent. BACK/EXTREMITIES: Edema 0+. NEUROLOGICAL: Alert and motor intact. LABORATORY DATA: Labs show creatinine of 1.6. ASSESSMENT AND PLAN: 1. Chronic kidney disease stage 4, stable. 2. Hypertension, stable. 3. Congestive heart failure, management per primary team. 4. No indication for dialysis. 5. Anemia. Continue Epogen. Follow hemoglobin. Job ID: [id number]
[2018-04-10] MEDS ORDERED: Aspirin 81 mg Enteric Coated Tablet PO SCH (21:00)
[2018-04-10] MEDS ORDERED: Escitalopram Oxalate 10 mg Tablet PO SCH (21:00)
--- NOTE | 2018-04-11 00:33 | CON ---
DATE OF CONSULTATION: HISTORY OF PRESENT ILLNESS: Rashi Ureña is an 83-year-old white male, who has been followed by Dr. Moralez and then most recently Dr. Palafox. He was just admitted on April 04 and discharged on the . He then is readmitted again on the with his shortness of breath and weakness. He denies any significant chest discomfort. His states that he has become dyspneic with just getting up and walking 10 or 15 feet. PAST MEDICAL HISTORY: Chronic atrial fibrillation (on checking his pacemaker, he has been in chronic atrial fibrillation since August 2017), on anticoagulation, hypertension, diastolic dysfunction, chronic kidney disease, status post biventricular pacemaker, and obstructive sleep apnea. MEDICATIONS: 1. Multaq 400 mg b.i.d. 2. Xarelto 15 mg daily. 3. Allopurinol 100 mg daily. 4. Aspirin 81 daily. 5. Lexapro 5 mg at bedtime. 6. Trilipix 135 at bedtime. 7. Furosemide 40 daily. 8. Amaryl 4 mg b.i.d. 9. Levothyroxine 50 mcg daily. 10. Metoprolol 100 b.i.d. 11. Actos 45 mg daily. ALLERGIES: NONE. SOCIAL HISTORY: He does not smoke at the present time or drink. REVIEW OF SYSTEMS: A 10-point review of systems unremarkable. PHYSICAL EXAMINATION: VITAL SIGNS: Blood pressure 103/56, pulse of 81. HEENT: PERRL. NECK: Supple. CHEST: Clear, but distant. CARDIOVASCULAR: S1 and S2 normal without any S3, S4, or murmurs. ABDOMEN: Normal bowel sounds. Abdomen is obese. EXTREMITIES: Reveal 1+ pretibial edema. LABORATORY DATA: EKG reveals ventricular pacing. On interrogation of the device, he has been in atrial fibrillation since August 2017. However, he continues to be ventricularly paced 99% of the time. Hemoglobin 8.4, hematocrit 25.5, white count 5900. Troponin I 0.336. Iron 30, TIBC 441. ALT 356, AST 508. Sodium 134, potassium 3.4, chloride 100, carbon dioxide 24, BUN 58, and creatinine 2.68. IMPRESSION: 1. Increasing weakness, fatigue and shortness of breath, multifactorial in nature. 2. Chronic atrial fibrillation since August 2017. 3. Status post biventricular pacemaker placement. 4. Anemia. 5. Hypertension. 6. Diabetes. 7. Chronic kidney disease. 8. History of pulmonary hypertension. 9. Elevated liver function tests. PLAN: With current blood pressure, metoprolol has been held. Consideration should be given to discontinuation of the Multaq since he has been in chronic atrial fibrillation over the last 7 months unless cardioversion is planned. I will have him undergo PonoMusiciscan Cardiolite testing to evaluate for possibility of coronary artery disease. Job ID: [id number]
[2018-04-11] MEDS: Levothyroxine Sodium 50 MCG TAB PO SCH (04:13)
[2018-04-11 05:10] LABS: Hemoglobin 8.3 g/dL (14.0-18.0)
[2018-04-11] MEDS ORDERED: Iron Sucrose Complex 100 MG in Sodium Chloride 0.9% 100 ML IVPB SCH (11:30)
--- NOTE | 2018-04-11 11:46 | NM ---
CARDIAC SPECT: CLINICAL HISTORY: 83-year-old male with elevated troponin, atrial fibrillation, CHF, hypertension, and diabetes. TECHNIQUE: A myocardial perfusion scan was performed using the single isotope two day protocol with 32 mCi techn etium-99m sestamibi injected intravenously for both stress and rest images. Pharmacologic stress with Lexiscan was monitored and interpreted by Dr. Lemus. FINDINGS: A fixed defect is seen in the lateral and anterolateral perez. No reversible defects are seen. GATED SPECT LVEF: 43%. WALL MOTION EXAM: Lateral wall hypokinesis. IMPRESSION: No evidence of reversible ischemia. POS: [facility]
[2018-04-11] MEDS ORDERED: Iron, Sodium Ferric Gluconate 125 MG in Sodium Chloride 0.9% 100 ML IVPB SCH (12:00)
--- NOTE | 2018-04-11 12:00 | PRG ---
DATE OF SERVICE: 04/11/2018 SUBJECTIVE: This 83-year-old gentleman, being seen for acute kidney injury. The patient denies any nausea, vomiting, or chest pain. OBJECTIVE: CONSTITUTIONAL: Awake, alert, in no acute distress. VITAL SIGNS: Temperature afebrile. Pulse 98, breathing is 16, blood pressure 107/57. GENERAL APPEARANCE AND MENTAL STATUS: Fair. HEAD/NECK: Normocephalic, atraumatic. EYES: EOMI. No deformity. EARS: Clear. No ulcers. NOSE: Intact. No lesions. MOUTH: Clear. No discharge. THROAT: Clear. No exudate. LUNGS: Clear. No crackles. CARDIAC: S1, S2. No rub. ABDOMEN: Benign. Bowel sounds positive. GENITALIA/RECTUM: Jiménez absent. BACK/EXTREMITIES: Edema 0+. NEUROLOGICAL: Alert and motor intact. SKIN: LYMPHATICS: LABORATORY DATA: Labs show hemoglobin 8.3, creatinine is pending. ASSESSMENT AND PLAN: 1. Acute kidney injury. 2. . 3. Hypertension, stable. 4. Anemia, stable. 5. Medications based on GFR are appropriate. No indication for dialysis. Job ID: [id number]
[2018-04-11 12:16] LABS: Hemoglobin 8.4 g/dL (14.0-18.0)
[2018-04-11 12:19] LABS: Anion Gap 15 mmol/L (10-20); BUN (Urea Nitrogen) 57 mg/dL (8.4-25.7); Calc. Creatinine Clearance 37 mL/min (70-130); Calcium 8.9 mg/dL (7.8-10.44); Carbon Dioxide 24 mmol/L (23-31); Chloride 99 mmol/L (98-107); Estimated GFR-MDRD 25; Glucose 272 mg/dL (83-110); Potassium 3.6 mmol/L (3.5-5.1); Sodium 134 mmol/L (136-145)
[2018-04-11] MEDS: Rivaroxaban 15 MG TAB PO SCH (12:33)
[2018-04-11] MEDS: Dronedarone HCl 400 MG TAB PO SCH (12:33)
[2018-04-11] MEDS: Allopurinol 100 MG TAB PO SCH (12:33)
[2018-04-11] MEDS: HumaLOG 300 UNITS/3 ML VIAL SC PRN (12:35)
[2018-04-11 15:54] VITALS: TEMP 97.6
[2018-04-11 16:48] VITALS: BP 129/62
[2018-04-11] MEDS ORDERED: Carvedilol 3.125 MG TAB PO SCH (17:00)
--- NOTE | 2018-04-14 06:15 | EKG ---
Test Reason : TROPONIN Blood Pressure : / mmHG Vent. Rate : 142 BPM Atrial Rate : 087 BPM P-R Int : 000 ms QRS Dur : 108 ms QT Int : 106 ms P-R-T Axes : -89 094 000 degrees QTc Int : 163 ms Atrial-paced rhythm with frequent ventricular-paced complexes Rightward axis Abnormal ECG When compared with ECG of 03-APR-2018 20:12, Vent. rate has increased BY 62 BPM Confirmed by MICHELLE SERVIN ([id number]) on 04/14/2018 6:15:12 AM Referred By: SAMSON Confirmed By:MICHELLE SERVIN
== END 2018-04-11 16:25 | disposition home or self-care (01) ==
LOC: ERS 00:15 → 2SW 00:45
PROVIDERS: ADMIT Internal Medicine; ATTEND Internal Medicine
DX: R06.02 Shortness of breath (principal); I13.0 Hypertensive heart and chronic kidney disease with heart failure and stage 1 through stage 4 chronic kidney disease, or unspecified chronic kidney disease; E11.22 Type 2 diabetes mellitus with diabetic chronic kidney disease; N18.4 Chronic kidney disease, stage 4 (severe); I50.30 Unspecified diastolic (congestive) heart failure; N17.9 Acute kidney failure, unspecified; D63.1 Anemia in chronic kidney disease; E11.65 Type 2 diabetes mellitus with hyperglycemia; R94.5 Abnormal results of liver function studies; I48.2 Chronic atrial fibrillation; G47.33 Obstructive sleep apnea (adult) (pediatric); I34.0 Nonrheumatic mitral (valve) insufficiency; Z95.0 Presence of cardiac pacemaker; Z87.891 Personal history of nicotine dependence; Z79.82 Long term (current) use of aspirin; Z79.84 Long term (current) use of oral hypoglycemic drugs; Z79.899 Other long term (current) drug therapy; Z79.01 Long term (current) use of anticoagulants
CPT/HCPCS: 71250; 78452; 80048 ×2; 80076; 82553; 82962 ×2; 83036; 83540; 83550 ×2; 84484 ×2; 85014 ×2; 85018 ×2; 85025; 93005; 93017; 94660; 96365; 96375; 97116; 97139 ×3; 99285; A9500; G0378 ×2; G8978; G8979; G8980; G8987; G8988; 36415; 36416; 93010; 96374; J1940; J2916; J7050

== ENCOUNTER 2018-05-15 15:21 | Inpatient (IN) | payer MEDICARE ==
[2018-05-15 16:05] LABS: #Monocytes 0.7 thou/uL (0.11-0.59); #Neutrophils 4.1 thou/uL (1.40-6.50); %Basophils 0.4 % (0.0-1.0); %Eosinophils 0.7 % (0.0-10.0); %Lymphocytes 16.5 % (21.0-51.0); %Monocytes 11.8 % (0.0-10.0); %Neutrophils 70.7 % (42.0-75.0); Mean Corpuscular HGB CONC 32.3 g/dL (32.0-36.0); Mean Corpuscular Hemoglobin 33.7 pg (27.0-31.0); Mean Platelet Volume 9.2 fL (7.4-10.4); Platelet Count 157 thou/uL (130-400); Red Blood Cell (RBC) Count 2.98 mill/uL (4.70-6.10); White Blood Cell (WBC) Count 5.8 thou/uL (4.8-10.8)
[2018-05-15 16:30] LABS: ALT (SGPT) 14 U/L (8-55); AST (SGOT) 24 U/L (5-34); Albumin 3.4 g/dL (3.4-4.8); Alkaline Phosphatase 44 U/L (40-150); Anion Gap 14 mmol/L (10-20); BUN (Urea Nitrogen) 55 mg/dL (8.4-25.7); Bilirubin, Total 0.7 mg/dL (0.2-1.2); Calc. Creatinine Clearance 0 mL/min (70-130); Calcium 9.6 mg/dL (7.8-10.44); Carbon Dioxide 25 mmol/L (23-31); Chloride 98 mmol/L (98-107); Estimated GFR-MDRD 17; Globulin 3.3 g/dL (2.4-3.5); Glucose 250 mg/dL (83-110); Potassium 4.6 mmol/L (3.5-5.1); Protein, Total 6.7 g/dL (5.8-8.1); Sodium 132 mmol/L (136-145)
--- NOTE | 2018-05-15 16:50 | RAD ---
RADIOGRAPH CHEST 1 VIEW: Date: 05-15-18 Time: 3:49 p.m. HISTORY: 83-year-old male with dyspnea. COMPARISON: 04-09-18 FINDINGS: Left subclavian multi-lead pacemaker. Cardiomegaly. New finding of dense opacification at the left ba se with complete silhouetting of the left hemidiaphragm, and a lateral meniscus. Cardiomegaly. No pul monary edema. No pneumothorax. IMPRESSION: 1. Small left pleural effusion and underlying left basilar airspace opacity. 2. Cardiomegaly without congestive heart failure. 3. Pacemaker. AMELIA POS: [facility]
[2018-05-15] MEDS ORDERED: Acetaminophen 325 MG TAB PO PRN (17:14)
[2018-05-15] MEDS ORDERED: HumaLOG 300 UNITS/3 ML VIAL SC PRN (17:14)
[2018-05-15] MEDS ORDERED: Dextrose 5% in Water 1,000 ML IV PRN (17:14)
[2018-05-15] MEDS ORDERED: Dextrose 50% Abboject 50 ML SYRINGE SLOW IVP PRN (17:14)
[2018-05-15] MEDS ORDERED: Furosemide 40 MG/4 ML VIAL SLOW IVP SCH (17:30)
[2018-05-15] MEDS ORDERED: Furosemide 40 MG/4 ML VIAL ONE (17:50)
--- NOTE | 2018-05-15 19:03 | HP ---
CHIEF COMPLAINT: Swelling. HISTORY OF PRESENT ILLNESS: This is an 83-year-old male with history of chronic kidney disease stage 3-4, hypertension, diabetes, diastolic heart failure, with last hospitalization here from 04/10 to 04/11 for shortness of breath, presents to the emergency room with a complaint of swelling. The patient reports that he has been in rehab from 04/12 until 05/13 in [place], [place]. He states that after leaving, his swelling has been worse. It was generally his legs and abdomen, but now includes his left arm. He reports at the request of his family that he presents to the emergency room. He states that he was sent home with medication from the rehab, is unaware of which medications he takes. He does note very little urine output and states this is not a change. He denies any swelling of his left arm in rehab. The patient is unable to provide any more details, states that he does not know and becomes frustrated with further questioning. In the emergency room, the patient was found to have anasarca, and acute kidney injury in the context of chronic kidney disease and hospitalist called for admission. PAST MEDICAL HISTORY: 1. Hypertension. 2. Diabetes mellitus. 3. Chronic kidney disease stage 3-4. 4. Atrial fibrillation, on full anticoagulation. 5. Diastolic heart failure. 6. Bradycardia with pacemaker. 7. A lung nodule identified with his last hospitalization. 8. Chronic hypoxia and oxygen use in the context of obstructive sleep apnea. 9. Gout. 10. Hypothyroidism. PAST SURGICAL HISTORY: 1. Cardiac ablation. 2. Pacemaker insertion. 3. Left elbow. 4. Cardioversion. CURRENT MEDICATIONS: Reconciled with the list brought in from the rehab center. 1. Hydroxyzine 25 mg at bedtime for itching. 2. Lasix 80 mg b.i.d. 3. Flomax 0.4 mg daily. 4. Spironolactone 50 mg daily. 5. Xanax 0.25 mg every 6 hours as needed for anxiety. 6. Lexapro 10 mg daily. 7. Zyrtec 10 mg daily. 8. Fenofibric acid 135 mg at bedtime. 9. Actos 45 mg daily. 10. NovoLog sliding scale. 11. Allopurinol 100 mg daily. 12. Centrum multivitamin daily. 13. Rivaroxaban 15 mg daily. 14. Levothyroxine 50 mcg daily. 15. Amaryl 4 mg b.i.d. 16. Xanax 0.25 mg at bedtime. 17. Ferrous sulfate 325 mg b.i.d. 18. Dronedarone 400 mg b.i.d. 19. Aspirin 81 mg daily. 20. Metoprolol tartrate 100 mg b.i.d. ALLERGIES: NO KNOWN ALLERGIES TO MEDICATION. SOCIAL HISTORY: Former tobacco user, to his , Deneen, who is his surrogate decision maker and he is a full code. REVIEW OF SYSTEMS: Negative for fevers, chills, diarrhea, abdominal pain, nausea, vomiting. Limited review of systems was obtainable secondary to the patient becoming frustrated with questions. He does note his blood sugars have ranged from the 80s to the 500s, generally in the 300s. FAMILY HISTORY: Significant for diabetes. PHYSICAL EXAMINATION: VITAL SIGNS: Blood pressure is 114/67, pulse 80, respirations 19, temperature 98.6, sats 99% on room air. GENERAL: The patient is lying comfortably. He is not in apparent distress. HEENT: Pupils are equal and round. NECK: Supple, nontender. LYMPHATICS: No palpable cervical or supraclavicular lymphadenopathy. LUNGS: Clear to auscultation. No audible wheezing, rhonchi, or rales. HEART: Distant heart sounds. Normal S1, S2. No significant murmurs. ABDOMEN: He does have abdominal wall edema throughout, present bowel sounds. EXTREMITIES: 4+ pitting edema in his lower extremities, 2+ pitting edema in his left upper extremity with some areas of the erythema, but no induration or fluctuance. No visible edema in his right upper extremity. NEUROLOGIC: No focal deficits. PSYCH: The patient appears stated age, euthymic. SKIN: Changes noted in the left upper extremity with erythema, pitting and lymphedema changes. No visible rashes. LABS REVIEWED: CBC: 5.8, 10.0, 31.0, 157. Chemistry: 132, 4.6, 98, 25, 55, 3.44, 250, last creatinine on record is 2.48 from 04/11. LFTs are normal including albumin of 3.4. BNP of 1524, troponin negative. Chest x-ray is personally reviewed. The patient with portable cardiomegaly, some basilar edema. ECG reviewed - paced rhythm. IMPRESSION: 1. Acute kidney injury in the context of chronic kidney disease. 2. Hyponatremia with significant volume overload. 3. History of chronic atrial fibrillation, on full anticoagulation. 4. History of diastolic heart failure, not compromised from this, but volume overloaded. 5. Diabetes mellitus by history, uncontrolled. 6. Lung nodule identified with last hospitalization, not characterized. 7. Chronic hypoxia, on oxygen supplementation and obstructive sleep apnea, on CPAP. 8. History of bradycardia with pacemaker. 9. Gout. 10. Hypothyroidism. PLAN: 1. Admission to the hospital. 2. Consultation with Dr. Fan, and IV diuresis with Lasix to both improve his renal function as well as the anasarca. 3. Continuing selective home medications. We will hold the allopurinol, Amaryl, Actos, Zyrtec, spironolactone, oral Lasix for now. 4. Insulin sliding scale, based on his blood sugars, and consider using a long-acting insulin based on today's/overnight's blood sugar readings. 5. Monitoring his renal function, at this time, he is okay for Xarelto at the current dosing. However, if his creatinine clearance drops down less than 15, we will need to consider other anticoagulation such as Eliquis. 6. I will use insulin sliding scale for now. Continuing his aspirin, metoprolol , and fenofibric acid. 7. We will continue medications for mood. 8. DVT prophylaxis. He is fully anticoagulated. 9. Continue oxygen supplementation as well as we will order a CPAP. 10. GI prophylaxis, not indicated. 11. Code status is full, confirmed with the patient and surrogate decision maker , is his . 12. The patient is at high risk given age, comorbidities and current presentation. The patient is at high risk for recurrent hospitalizations due to multiple significant comorbidities. 13. Reviewed the plan of care with the patient who demonstrates understanding. No questions or further needs at the end of evaluation. Job ID: [id number] [facility]
[2018-05-15 19:30] LABS: Troponin I Less than 0.010 ng/mL (< 0.028)
[2018-05-15] MEDS: Metoprolol Tartrate 100 MG TAB PO SCH (21:55)
[2018-05-15] MEDS: Aspirin 81 mg Enteric Coated Tablet PO SCH (21:55)
[2018-05-15] MEDS: hydrOXYzine 25 MG TAB PO SCH (21:55)
[2018-05-15] MEDS: ALPRAZolam 0.25 MG TAB PO PRN (22:00)
[2018-05-15 23:32] VITALS: BMI 37.2
--- NOTE | 2018-05-16 02:18 | CON ---
DATE OF CONSULTATION: 05/15/2018 CONSULTING PHYSICIAN: Milvia Frazier MD REASON FOR CONSULTATION: Acute kidney injury. REASON FOR ADMISSION: Leg swelling. HISTORY OF PRESENT ILLNESS: An 83-year-old male with history of hypertension, type 2 diabetes, chronic kidney disease, atrial fibrillation, CHF, came to the hospital with swelling and was found to have elevated creatinine, and Nephrology was consulted. The patient is currently starter on IV Lasix and plan is to monitor renal function. He was found to have anasarca. The patient is followed by Dr. Gutiérrez. Denies any shortness of breath, he is not hypoxic, he is not requiring oxygen at the ER. PAST MEDICAL HISTORY: Positive for hypertension, diabetes, CKD, atrial fibrillation, CHF, bradycardia, hypoxia, gout, hypothyroidism. PAST SURGICAL HISTORY: Cardiac ablation, pacemaker, left elbow surgery, cardioversion. HOME MEDICATIONS: Lasix, Flomax, spironolactone, xanax, Lexapro, Zyrtec, fenofibrate, Actos, NovoLog, allopurinol, Centrum, rivaroxaban, levothyroxine, Amaryl, ferrous sulphate, dronedarone, aspirin, metoprolol. ALLERGIES: NO KNOWN DRUG ALLERGIES. SOCIAL HISTORY: Former tobacco user. No alcohol or illicit drug abuse. FAMILY HISTORY: No history of any kidney disease. REVIEW OF SYSTEMS: CONSTITUTIONAL: Negative for weight loss or gain, ability to conduct usual activities. SKIN: Negative for rash, itching. EYES: Negative for double vision, pain. ENT/MOUTH: Negative for nose bleeding, neck stiffness, pain, tenderness. CARDIOVASCULAR: Negative for palpitations, dyspnea on exertion, orthopnea. RESPIRATORY: Negative for shortness of breath, wheezing, cough, hemoptysis, fever or night sweats. GASTROINTESTINAL: Negative for poor appetite, abdominal pain, heartburn, nausea, vomiting, constipation, or diarrhea. GENITOURINARY: Negative for urgency, frequency, dysuria, nocturia. MUSCULOSKELETAL: Negative for pain, swelling. NEUROLOGIC/PSYCHIATRIC: Negative for anxiety, depression. ALLERGY/IMMUNOLOGIC: Negative for skin rash, bleeding tendency. OBJECTIVE: GENERAL: This is an obese male, in no apparent distress. VITAL SIGNS: Temperature 98.6, pulse 80, respiratory rate 19, blood pressure 149/67. HEENT: Atraumatic, normocephalic. Oral mucosa is moist. NECK: Supple. CARDIOVASCULAR: S1, S2 heard. Rate and rhythm regular. RESPIRATORY: Clear. GASTROINTESTINAL: Abdomen is distended. MUSCULOSKELETAL: 2+ edema. DERMATOLOGIC: No skin rash. NEUROLOGIC: Alert and awake. PSYCHIATRIC: Normal mood and affect. LABORATORY DATA: Hemoglobin is 10, potassium is 4.6, BUN is 55, creatinine is 3.4. ASSESSMENT AND PLAN: 1. Acute kidney injury on chronic kidney disease, stage 4. Plan is to start on Lasix and monitor renal function closely. 2. Hyponatremia, limit fluid intake. 3. Edema, plan as above. 4. Hypertension, stable. 5. Anemia. 6. Obesity. 7. Polypharmacy. 8. Elevated BNP. Plan is to start on Lasix 40 mg IV b.i.d. with close monitoring of cardiorespiratory status and renal function and electrolytes. Avoid nephrotoxins. We will follow. Thank you for the consultation. Job ID: [id number]
[2018-05-16] MEDS: Furosemide 40 MG/4 ML VIAL SLOW IVP SCH ×2 (05:41→17:13)
[2018-05-16] MEDS: Levothyroxine Sodium 50 MCG TAB PO SCH (05:41)
[2018-05-16 06:36] LABS: Band 3 % (5-11); Eosinophils 1 % (0-10); Hemoglobin 9.2 g/dL (14.0-18.0); Lymphocytes 18 % (21-51); MDiff Complete? YES; Mean Corpuscular HGB CONC 32.8 g/dL (32.0-36.0); Mean Corpuscular Hemoglobin 34.1 pg (27.0-31.0); Mean Platelet Volume 9.4 fL (7.4-10.4); Monocytes 13 % (0-10); Neutrophil 64 % (42-75); Platelet Count 155 thou/uL (130-400); Platelet Morphology Comment Appears Adequate; RBC Distribution Width 15.7 % (11.5-14.5); Red Blood Cell (RBC) Count 2.69 mill/uL (4.70-6.10); White Blood Cell (WBC) Count 5.1 thou/uL (4.8-10.8)
[2018-05-16 06:41] LABS: Anion Gap 11 mmol/L (10-20); BUN (Urea Nitrogen) 57 mg/dL (8.4-25.7); Calc. Creatinine Clearance 30 mL/min (70-130); Calcium 9.6 mg/dL (7.8-10.44); Carbon Dioxide 28 mmol/L (23-31); Chloride 99 mmol/L (98-107); Estimated GFR-MDRD 18; Glucose 183 mg/dL (83-110); Potassium 4.1 mmol/L (3.5-5.1); Sodium 134 mmol/L (136-145)
[2018-05-16] MEDS: Tamsulosin HCl 0.4 MG CAP PO SCH (08:50)
[2018-05-16] MEDS: Dronedarone HCl 400 MG TAB PO SCH ×2 (08:50→17:13)
[2018-05-16] MEDS: Metoprolol Tartrate 100 MG TAB PO SCH ×2 (08:50→20:02)
[2018-05-16] MEDS: Fenofibrate Nanocrystallized 145 MG TAB PO SCH (08:50)
[2018-05-16] MEDS: Escitalopram Oxalate 10 mg Tablet PO SCH (08:50)
[2018-05-16] MEDS: HumaLOG 300 UNITS/3 ML VIAL SC PRN (11:42)
--- NOTE | 2018-05-16 14:18 | PRG ---
DATE OF SERVICE: 05/16/2018 SUBJECTIVE: An 83-year-old gentleman being seen for acute kidney injury. The patient denied any nausea, vomiting, or chest pain. OBJECTIVE: VITAL SIGNS: Afebrile, pulse 81, breathing 16, and blood pressure 126/60. Awake, alert, in no acute distress. GENERAL APPEARANCE AND MENTAL STATUS: Fair. HEAD/NECK: Normocephalic. Atraumatic. EYES: EOMI. No deformity. EARS: Clear. No ulcers. NOSE: Intact. No lesions. MOUTH: Clear. No discharge. THROAT: Clear. No exudate. LUNGS: Clear. No crackles. CARDIAC: S1, S2. No rub. ABDOMEN: Benign. Bowel sounds positive. GENITALIA/RECTUM: Jiménez absent. BACK/EXTREMITIES: Edema 0+. NEUROLOGICAL: Alert and motor intact. LABORATORY DATA: Labs show hemoglobin 10.2. Creatinine 3.29. ASSESSMENT AND PLAN: 1. Acute kidney injury, improved. 2. Hypertension, stable. 3. Anemia, stable. 4. Medications based on GFR are appropriate. No indication for dialysis. Job ID: [id number]
[2018-05-16] MEDS: ALPRAZolam 0.25 MG TAB PO PRN (20:01)
[2018-05-16] MEDS: Aspirin 81 mg Enteric Coated Tablet PO SCH (20:01)
[2018-05-16] MEDS: hydrOXYzine 25 MG TAB PO SCH (20:01)
--- NOTE | 2018-05-16 21:39 | PDOC.PN ---
- Subjective Encounter Start Date: 05/16/18 Encounter Start Time: 15:00 Patient seen and examined for CHF/SRINI. SOB improving. No new complaints. No overnight events - Objective Resuscitation Status - Order Detail: 05/15/18 17:14 Resuscitation Status Routine Resuscitation Status: FULL: Full Resuscitation MAR Reviewed: Yes Vital Signs & Weight: Vital Signs (12 hours) Temp Pulse Resp BP Pulse Ox 05/16/18 16:35 97.4 F L 82 20 97/56 L 96 05/16/18 11:40 95 05/16/18 11:38 97.2 F L 81 18 106/59 L 88 L Weight Weight 274 lb 6 oz I&O: 05/15/18 05/16/18 05/17/18 06:59 06:59 06:59 Intake Total 240 960 Output Total 1050 1700 Balance -810 -740 Result Diagrams: 05/17/18 05:27 05/17/18 05:27 Additional Labs: Accuchecks 05/16/18 05/16/18 05/16/18 20:12 16:50 11:20 POC Glucose 268 H 179 H 292 H 05/16/18 05/15/18 05:35 21:46 POC Glucose 195 H 253 H EKG Reviewed by me: Yes (Tele SR) Phys Exam - Physical Examination Constitutional: NAD Respiratory: no wheezing, no rhonchi bibasilar rales Cardiovascular: RRR, no rub Gastrointestinal: soft, positive bowel sounds Musculoskeletal: edema present Neurological: non-focal Dx/Plan (1) Acute worsening of stage 3 chronic kidney disease Code(s): N18.3 - CHRONIC KIDNEY DISEASE, STAGE 3 (MODERATE) Status: Acute (2) Acute on chronic diastolic ACC/AHA stage C congestive heart failure Code(s): I50.33 - ACUTE ON CHRONIC DIASTOLIC (CONGESTIVE) HEART FAILURE Status : Acute (3) DM2 (diabetes mellitus, type 2) Status: Chronic Comment: A1C 8.8, ISS, resume oral hypoglycemics (4) HTN (hypertension) Code(s): I10 - ESSENTIAL (PRIMARY) HYPERTENSION Status: Chronic Qualifiers: (5) Other issues per previous notes - Plan cont current plan of care, PT/OT Cont IV diuretics -: AM labs -: Cont current meds as below -: Consult Cardiology per family req Review of Systems - Medications/Allergies Allergies/Adverse Reactions: Allergies Allergy/AdvReac Type Severity Reaction Status Date / Time No Known Allergies Allergy Verified 04/10/18 03:12 Medications: Current Medications Acetaminophen (Tylenol) 650 mg PO Q6H PRN PRN Reason: Headache/Fever/Mild Pain (1-3) Alprazolam (Xanax) 0.25 mg PO QIDPRN PRN PRN Reason: Anxiety Last Admin: 05/16/18 20:01 Dose: 0.25 mg Aspirin (Ecotrin) 81 mg PO [facility] Last Admin: 05/16/18 20:01 Dose: 81 mg Dextrose/Water (Dextrose 50%) 25 gm SLOW IVP PRN PRN PRN Reason: Hypoglycemia Dronedarone (Multaq) 400 mg PO BID-[facility] Last Admin: 05/16/18 17:13 Dose: 400 mg Escitalopram Oxalate (Lexapro) 10 mg PO DAILY [facility] Last Admin: 05/16/18 08:50 Dose: 10 mg Fenofibrate (Tricor) 145 mg PO DAILY [facility] Last Admin: 05/16/18 08:50 Dose: 145 mg Furosemide (Lasix) 40 mg SLOW IVP 0600,1400 [facility] Last Admin: 05/16/18 17:13 Dose: 40 mg Glucagon (Glucagon) 1 mg IM PRN PRN PRN Reason: Hypoglycemia Hydroxyzine HCl (Atarax) 25 mg PO [facility] Last Admin: 05/16/18 20:01 Dose: 25 mg Dextrose/Water (D5w) 1,000 mls @ 0 mls/hr IV .Q0M PRN PRN Reason: Hypoglycemia Insulin Human Lispro (Humalog) 0 units SC .MODERATE SLIDING SC PRN PRN Reason: Moderate Correctional Scale Last Admin: 05/16/18 11:42 Dose: 6 unit Insulin Human Lispro (Humalog) 0 units SC .BEDTIME SLIDING SC PRN PRN Reason: Bedtime Correctional Scale Last Admin: 05/16/18 20:45 Dose: 3 unit Levothyroxine Sodium (Synthroid) 50 mcg PO 0600 [facility] Last Admin: 05/16/18 05:41 Dose: 50 mcg Metoprolol Tartrate (Lopressor) 100 mg PO BID [facility] Last Admin: 05/16/18 20:02 Dose: 100 mg Rivaroxaban (Xarelto) 15 mg PO 1700 [facility] Tamsulosin HCl (Flomax) 0.4 mg PO DAILY [facility] Last Admin: 05/16/18 08:50 Dose: 0.4 mg
[2018-05-17] MEDS: Furosemide 40 MG/4 ML VIAL SLOW IVP SCH (06:03)
[2018-05-17] MEDS: Levothyroxine Sodium 50 MCG TAB PO SCH (06:03)
[2018-05-17 06:40] LABS: Anion Gap 14 mmol/L (10-20); BUN (Urea Nitrogen) 59 mg/dL (8.4-25.7); Calc. Creatinine Clearance 30 mL/min (70-130); Calcium 9.1 mg/dL (7.8-10.44); Carbon Dioxide 26 mmol/L (23-31); Chloride 99 mmol/L (98-107); Estimated GFR-MDRD 18; Glucose 111 mg/dL (83-110); Potassium 3.9 mmol/L (3.5-5.1); Sodium 135 mmol/L (136-145)
[2018-05-17 06:48] LABS: Hemoglobin 8.9 g/dL (14.0-18.0); Hypochromia SLIGHT = 6-15 cells (100X) (0-5/hpf); Lymphocytes 16 % (21-51); MDiff Complete? YES; Mean Corpuscular HGB CONC 32.6 g/dL (32.0-36.0); Mean Corpuscular Hemoglobin 33.8 pg (27.0-31.0); Mean Platelet Volume 9.4 fL (7.4-10.4); Monocytes 4 % (0-10); Neutrophil 80 % (42-75); Platelet Count 164 thou/uL (130-400); Platelet Morphology Comment Appears Adequate; RBC Distribution Width 15.9 % (11.5-14.5); Red Blood Cell (RBC) Count 2.63 mill/uL (4.70-6.10); White Blood Cell (WBC) Count 4.9 thou/uL (4.8-10.8)
[2018-05-17] MEDS: Dronedarone HCl 400 MG TAB PO SCH ×2 (08:47→17:33)
[2018-05-17] MEDS: Fenofibrate Nanocrystallized 145 MG TAB PO SCH (08:47)
[2018-05-17] MEDS: Escitalopram Oxalate 10 mg Tablet PO SCH (08:47)
[2018-05-17] MEDS: Metoprolol Tartrate 100 MG TAB PO SCH ×2 (08:47→21:22)
[2018-05-17] MEDS: Tamsulosin HCl 0.4 MG CAP PO SCH (08:47)
--- NOTE | 2018-05-17 11:10 | PRG ---
DATE OF SERVICE: 05/17/2018 SUBJECTIVE: This is an 83-year-old gentleman, being seen for acute kidney injury. The patient denies any nausea, vomiting, or chest pain. Has dyspnea on exertion. OBJECTIVE: See above. Awake, alert, in no acute distress. GENERAL APPEARANCE AND MENTAL STATUS: Fair. HEAD/NECK: Normocephalic. Atraumatic. EYES: EOMI. No deformity. EARS: Clear. No ulcers. NOSE: Intact. No lesions. MOUTH: Clear. No discharge. THROAT: Clear. No exudate. LUNGS: Clear. No crackles. CARDIAC: S1, S2. No rub. ABDOMEN: Benign. Bowel sounds positive. GENITALIA/RECTUM: Jiménez absent. BACK/EXTREMITIES: Edema 0+. NEUROLOGICAL: Alert and motor intact. LABORATORY DATA: Lab show creatinine 3.2. ASSESSMENT: 1. Chronic kidney disease stage 4, stable. 2. Hypertension, stable. 3. Anemia, stable. We will hold off on the Lasix and restart use as needed. Job ID: [id number]
[2018-05-17 11:56] LABS: Anion Gap 17 mmol/L (10-20); BUN (Urea Nitrogen) 57 mg/dL (8.4-25.7); Calc. Creatinine Clearance 33 mL/min (70-130); Calcium 9.3 mg/dL (7.8-10.44); Carbon Dioxide 25 mmol/L (23-31); Chloride 98 mmol/L (98-107); Estimated GFR-MDRD 20; Glucose 198 mg/dL (83-110); Potassium 3.9 mmol/L (3.5-5.1); Sodium 136 mmol/L (136-145)
[2018-05-17] MEDS: HumaLOG 300 UNITS/3 ML VIAL SC PRN ×2 (14:15→16:56)
--- NOTE | 2018-05-17 15:29 | CON ---
DATE OF CONSULTATION: REASON FOR CONSULTATION: Shortness of breath, lower extremity edema. HISTORY OF PRESENT ILLNESS: Mr. Ureña is an 83-year-old gentleman, who I have seen and evaluated in the past. He has a history of atrial fibrillation and severe pulmonary hypertension. He recently states the last several days he has had increased shortness of breath. He was admitted by Dr. Milvia Frazier on 05/15/2018 for the above. Given his swelling and mild shortness of breath, he proceeded to the emergency room. PAST MEDICAL HISTORY: Hypertension, diabetes mellitus, chronic kidney disease, diastolic dysfunction, bradycardia status post pacemaker placement, severe pulmonary hypertension, hypothyroidism, pacemaker placement. HOME MEDICATIONS: Include; 1. Flomax. 2. Lasix. 3. Spironolactone. 4. Xanax. 5. Lexapro. 6. Metoprolol. 7. Aspirin. 8. Multaq. 9. Iron sulfate. 10. Amaryl. 11. Levothyroxine. 12. Zaroxolyn. 13. Allopurinol. 14. NovoLog. 15. Actos. ALLERGIES: NONE. SOCIAL HISTORY: No current tobacco or alcohol use. FAMILY HISTORY: Negative for CAD. REVIEW OF SYSTEMS: A 10-point review of systems is reviewed and as above, otherwise negative. PHYSICAL EXAMINATION: GENERAL: Patient is a pleasant 83-year-old gentleman, who is in no acute distress. The patient appears their stated age. VITAL SIGNS: Blood pressure 101/53, pulse 77, temperature 97.3. NEUROLOGIC: The patient is alert and oriented x3 with no focal neurologic deficits. HEENT: Sclerae without icterus. Mouth has moist mucous membranes with normal pallor. NECK: No JVD. Carotid upstroke brisk. No bruits bilaterally. LUNGS: Clear to auscultation with unlabored respirations. BACK: No scoliosis or kyphosis. CARDIAC: Regular rate and rhythm with normal S1 and S2. No S3 or S4 noted. No significant rubs, murmurs, thrills, or gallops noted throughout the precordium. PMI is not displaced. There is no parasternal heave. ABDOMEN: Obese with positive fluid wave. EXTREMITIES: 2+ pitting edema. SKIN: No gross abnormalities. PERTINENT LABORATORY DATA: Hemoglobin 8.9, platelet count 164. IMPRESSION: 1. Lower extremity edema. 2. Shortness of breath. 3. Atrial fibrillation. 4. Status post pacemaker. RECOMMENDATIONS: Mr. Ureña's symptoms likely related to severe pulmonary hypertension. This is likely right-sided. His last stress study performed in March 2018 showed LVEF 43% with lateral wall hypokinesis and no reversible ischemia. Medical therapy is recommended. Again, his symptoms seem to be mainly related to edema. He does have severe sleep apnea on a recent sleep study. It is unknown whether he is using his CPAP. At this point, recommend diuresis. We will try and use CPAP while in the hospital. No current symptoms suggesting angina with minimal shortness of breath and no chest pain. Job ID: [id number]
[2018-05-17] MEDS: Rivaroxaban 15 MG TAB PO SCH (17:33)
[2018-05-17] MEDS: ALPRAZolam 0.25 MG TAB PO PRN (21:06)
[2018-05-17] MEDS: Aspirin 81 mg Enteric Coated Tablet PO SCH (21:06)
[2018-05-17] MEDS: hydrOXYzine 25 MG TAB PO SCH (21:06)
[2018-05-17] MEDS ORDERED: HumaLOG 300 UNITS/3 ML VIAL SC PRN (22:17)
--- NOTE | 2018-05-17 22:28 | PDOC.PN ---
- Subjective Encounter Start Date: 05/17/18 Encounter Start Time: 10:30 Patient seen and examined for CHF/SRINI. SOB improving. Sitting on chair. No new complaints. No overnight events - Objective Resuscitation Status - Order Detail: 05/15/18 17:14 Resuscitation Status Routine Resuscitation Status: FULL: Full Resuscitation MAR Reviewed: Yes Vital Signs & Weight: Vital Signs (12 hours) Temp Pulse Pulse Resp BP BP BP 05/17/18 19:40 97.5 F L 87 18 97/54 L 05/17/18 16:13 96.5 F L 96 20 107/74 05/17/18 15:03 80 117/58 L 05/17/18 12:35 97.3 F L 77 17 101/53 L Pulse Ox Pulse Ox 05/17/18 19:40 96 05/17/18 16:13 94 L 05/17/18 15:03 95 05/17/18 12:35 94 L Weight Weight 270 lb 3 oz I&O: 05/16/18 05/17/18 05/18/18 06:59 06:59 06:59 Intake Total 240 1200 480 Output Total 1050 2150 600 Balance -810 -950 -120 Result Diagrams: 05/17/18 05:27 05/17/18 11:30 Additional Labs: Accuchecks 05/17/18 05/17/18 05/17/18 21:53 20:48 14:16 POC Glucose 116 H 56 L* 266 H 05/17/18 05/17/18 10:40 06:04 POC Glucose 204 H 116 H EKG Reviewed by me: Yes (Tele paced) Phys Exam - Physical Examination Constitutional: NAD Respiratory: no wheezing, no rhonchi Cardiovascular: RRR, no rub Gastrointestinal: soft, non-tender, positive bowel sounds Musculoskeletal: edema present Neurological: moves all 4 limbs Dx/Plan (1) Acute worsening of stage 3 chronic kidney disease Code(s): N18.3 - CHRONIC KIDNEY DISEASE, STAGE 3 (MODERATE) Status: Acute (2) Acute on chronic diastolic ACC/AHA stage C congestive heart failure Code(s): I50.33 - ACUTE ON CHRONIC DIASTOLIC (CONGESTIVE) HEART FAILURE Status : Acute (3) DM2 (diabetes mellitus, type 2) Status: Chronic Comment: A1C 8.8, ISS, resume oral hypoglycemics (4) HTN (hypertension) Code(s): I10 - ESSENTIAL (PRIMARY) HYPERTENSION Status: Chronic Qualifiers: (5) Other issues per previous notes - Plan cont current plan of care Diuretics on hold -: Await Cardio input -: AM labs -: Cont current meds as below Review of Systems - Review of Systems Respiratory: negative: Cough, Dry, Shortness of Breath, Hemoptysis, SOB with Excertion, Pleuritic Pain, Sputum, Wheezing Cardiovascular: negative: chest pain, palpitations, orthopnea, paroxysmal nocturnal dyspnea, edema, light headedness, other - Medications/Allergies Allergies/Adverse Reactions: Allergies Allergy/AdvReac Type Severity Reaction Status Date / Time No Known Allergies Allergy Verified 04/10/18 03:12 Medications: Current Medications Acetaminophen (Tylenol) 650 mg PO Q6H PRN PRN Reason: Headache/Fever/Mild Pain (1-3) Alprazolam (Xanax) 0.25 mg PO QIDPRN PRN PRN Reason: Anxiety Last Admin: 05/17/18 21:06 Dose: 0.25 mg Aspirin (Ecotrin) 81 mg PO [facility] Last Admin: 05/17/18 21:06 Dose: 81 mg Dextrose/Water (Dextrose 50%) 25 gm SLOW IVP PRN PRN PRN Reason: Hypoglycemia Dronedarone (Multaq) 400 mg PO BID-[facility] Last Admin: 05/17/18 17:33 Dose: 400 mg Escitalopram Oxalate (Lexapro) 10 mg PO DAILY [facility] Last Admin: 05/17/18 08:47 Dose: 10 mg Fenofibrate (Tricor) 145 mg PO DAILY [facility] Last Admin: 05/17/18 08:47 Dose: 145 mg Glucagon (Glucagon) 1 mg IM PRN PRN PRN Reason: Hypoglycemia Hydroxyzine HCl (Atarax) 25 mg PO [facility] Last Admin: 05/17/18 21:06 Dose: 25 mg Dextrose/Water (D5w) 1,000 mls @ 0 mls/hr IV .Q0M PRN PRN Reason: Hypoglycemia Insulin Human Lispro (Humalog) 0 units SC .BEDTIME SLIDING SC PRN PRN Reason: Bedtime Correctional Scale Last Admin: 05/16/18 20:45 Dose: 3 unit Insulin Human Lispro (Humalog) 0 units SC .MILD SLIDING SCALE PRN PRN Reason: Mild Correctional Scale Levothyroxine Sodium (Synthroid) 50 mcg PO 0600 [facility] Last Admin: 05/17/18 06:03 Dose: 50 mcg Metoprolol Tartrate (Lopressor) 100 mg PO BID [facility] Last Admin: 05/17/18 21:22 Dose: Not Given Rivaroxaban (Xarelto) 15 mg PO 1700 [facility] Last Admin: 05/17/18 17:33 Dose: 15 mg Tamsulosin HCl (Flomax) 0.4 mg PO DAILY [facility] Last Admin: 05/17/18 08:47 Dose: 0.4 mg
[2018-05-18] MEDS: Levothyroxine Sodium 50 MCG TAB PO SCH (05:40)
[2018-05-18 06:30] LABS: Hemoglobin 9.1 g/dL (14.0-18.0); Platelet Count 170 thou/uL (130-400)
[2018-05-18 06:51] LABS: Anion Gap 16 mmol/L (10-20); BUN (Urea Nitrogen) 58 mg/dL (8.4-25.7); Calc. Creatinine Clearance 30 mL/min (70-130); Carbon Dioxide 26 mmol/L (23-31); Chloride 99 mmol/L (98-107); Estimated GFR-MDRD 18; Potassium 4.3 mmol/L (3.5-5.1); Sodium 137 mmol/L (136-145)
[2018-05-18 07:04] LABS: Glucose 45 mg/dL (83-110)
[2018-05-18] MEDS: Dronedarone HCl 400 MG TAB PO SCH ×2 (08:18→16:27)
[2018-05-18] MEDS: Escitalopram Oxalate 10 mg Tablet PO SCH (08:18)
[2018-05-18] MEDS: Fenofibrate Nanocrystallized 145 MG TAB PO SCH (08:18)
[2018-05-18] MEDS: Tamsulosin HCl 0.4 MG CAP PO SCH (08:19)
[2018-05-18] MEDS: Metoprolol Tartrate 100 MG TAB PO SCH ×2 (08:19→21:52)
--- NOTE | 2018-05-18 12:18 | PRG ---
DATE OF SERVICE: SUBJECTIVE: An 83-year-old male being seen for acute kidney injury. The patient denies any nausea, vomiting, or chest pain. OBJECTIVE: See above. Awake, alert, in no acute distress. VITAL SIGNS: Afebrile, pulse 80, breathing 16, blood pressure 100/61. GENERAL APPEARANCE AND MENTAL STATUS: Fair. HEAD/NECK: Normocephalic. Atraumatic. EYES: EOMI. No deformity. EARS: Clear. No ulcers. NOSE: Intact. No lesions. MOUTH: Clear. No discharge. THROAT: Clear. No exudate. LUNGS: Clear. No crackles. CARDIAC: S1, S2. No rub. ABDOMEN: Benign. Bowel sounds positive. GENITALIA/RECTUM: Jiménez absent. BACK/EXTREMITIES: Edema 0+. NEUROLOGICAL: Alert and motor intact. SKIN: LYMPHATICS: LABORATORY DATA: Labs reviewed. ASSESSMENT AND PLAN: 1. Chronic kidney disease, stage 4, stable. 2. Hypertension, stable. 3. Anemia, stable. 4. Congestive heart failure. Use Lasix as needed. Job ID: [id number]
--- NOTE | 2018-05-18 15:04 | PDOC.CTH ---
Cardiology Progress Note - Subjective no overnight events. Still volume overloaded - Objective Vital Signs Temp Pulse Resp BP BP BP Pulse Ox 05/18/18 11:50 97.5 F L 81 20 112/51 L 97 05/18/18 08:12 98.1 F 80 18 98/52 L 96 05/18/18 06:38 92 L 05/18/18 04:00 97.4 F L 81 20 100/61 92 L Weight 270 lb 6.4 oz 05/17/18 05/18/18 05/19/18 06:59 06:59 06:59 Intake Total 1200 880 Output Total 2150 750 Balance -950 130 - Physical Examination General/Neuro: alert & oriented x3 Lungs: CTA Heart: RRR Abdomen: soft Extremities: + edema B - Labs Result Diagrams: 05/18/18 05:20 05/18/18 05:20 Troponin/CKMB Troponin I 0.010 ng/mL (< 0.028) 05/15/18 21:53 - Assessment/Plan 1. Pulmonary HTN 2. CKD-4 3. Probable NATALEE 4. HTN 5. AF - ?chronic 6. DM-II 7. Bradycardia s/p pacer Continue diuresis per renal. Will need sleep study as outpatient.
[2018-05-18] MEDS: Rivaroxaban 15 MG TAB PO SCH (16:27)
[2018-05-18] MEDS ORDERED: Insulin Regular 300 UNITS/3 ML VIAL SC PRN (17:32)
--- NOTE | 2018-05-18 20:09 | PDOC.PN ---
- Subjective Encounter Start Date: 05/18/18 Encounter Start Time: 11:30 Patient seen and examined for CHF/SRINI. No new complaints. No overnight events - Objective Resuscitation Status - Order Detail: 05/15/18 17:14 Resuscitation Status Routine Resuscitation Status: FULL: Full Resuscitation MAR Reviewed: Yes Vital Signs & Weight: Vital Signs (12 hours) Temp Pulse Pulse Pulse Resp BP BP 05/18/18 15:46 79 81 108/54 L 112/51 L 05/18/18 15:20 97.7 F 82 18 05/18/18 11:50 97.5 F L 81 20 05/18/18 08:12 98.1 F 80 18 BP BP BP Pulse Ox Pulse Ox Pulse Ox 05/18/18 15:46 95 97 05/18/18 15:20 117/56 L 98 05/18/18 11:50 112/51 L 97 05/18/18 08:12 98/52 L 96 Weight Weight 270 lb 6.4 oz I&O: 05/17/18 05/18/18 05/19/18 06:59 06:59 06:59 Intake Total 1200 880 720 Output Total 2150 750 400 Balance -950 130 320 Result Diagrams: 05/18/18 05:20 05/18/18 05:20 Additional Labs: Accuchecks 05/18/18 05/18/18 05/18/18 17:10 10:53 08:16 POC Glucose 402 H 167 H 76 05/18/18 05/18/18 05/17/18 07:10 05:51 21:53 POC Glucose 85 56 L* 116 H 05/17/18 05/17/18 20:48 16:50 POC Glucose 56 L* 161 H EKG Reviewed by me: Yes (Tele paced) Phys Exam - Physical Examination Constitutional: NAD Respiratory: no wheezing, no rhonchi Bibasilar rales Cardiovascular: RRR, no rub Gastrointestinal: soft, non-tender, positive bowel sounds Musculoskeletal: edema present Neurological: moves all 4 limbs Dx/Plan (1) Acute worsening of stage 3 chronic kidney disease Code(s): N18.3 - CHRONIC KIDNEY DISEASE, STAGE 3 (MODERATE) Status: Acute (2) Acute on chronic diastolic ACC/AHA stage C congestive heart failure Code(s): I50.33 - ACUTE ON CHRONIC DIASTOLIC (CONGESTIVE) HEART FAILURE Status : Acute (3) DM2 (diabetes mellitus, type 2) Status: Chronic Comment: with Hypoglycemia (4) HTN (hypertension) Code(s): I10 - ESSENTIAL (PRIMARY) HYPERTENSION Status: Chronic Qualifiers: (5) Obesity (BMI 30-39.9) Code(s): E66.9 - OBESITY, UNSPECIFIED Status: Chronic (6) NATALEE on CPAP Code(s): G47.33 - OBSTRUCTIVE SLEEP APNEA (ADULT) (PEDIATRIC); Z99.89 - DEPENDENCE ON OTHER ENABLING MACHINES AND DEVICES Status: Chronic (7) Pulmonary HTN Code(s): I27.20 - PULMONARY HYPERTENSION, UNSPECIFIED Status: Chronic (8) Chronic a-fib Code(s): I48.2 - CHRONIC ATRIAL FIBRILLATION Status: Chronic (9) Other issues per previous notes - Plan cont current plan of care, PT/OT Diuretics on hold per Nephrology -: On Xarelto - Will need to be changed to some other OACs if GFR <15 -: AM labs -: Cardiology following Review of Systems - Review of Systems Respiratory: SOB with Excertion. negative: Cough, Dry, Shortness of Breath, Hemoptysis, Pleuritic Pain, Sputum, Wheezing Cardiovascular: edema. negative: chest pain, palpitations, orthopnea, paroxysmal nocturnal dyspnea, light headedness, other Gastrointestinal: negative: Nausea, Vomiting, Abdominal Pain, Diarrhea, Constipation, Melena, Hematochezia, Other - Medications/Allergies Allergies/Adverse Reactions: Allergies Allergy/AdvReac Type Severity Reaction Status Date / Time No Known Allergies Allergy Verified 04/10/18 03:12 Medications: Current Medications Acetaminophen (Tylenol) 650 mg PO Q6H PRN PRN Reason: Headache/Fever/Mild Pain (1-3) Alprazolam (Xanax) 0.25 mg PO QIDPRN PRN PRN Reason: Anxiety Last Admin: 05/17/18 21:06 Dose: 0.25 mg Aspirin (Ecotrin) 81 mg PO HS [facility] Last Admin: 05/17/18 21:06 Dose: 81 mg Dextrose/Water (Dextrose 50%) 25 gm SLOW IVP PRN PRN PRN Reason: Hypoglycemia Dronedarone (Multaq) 400 mg PO BID-[facility] Last Admin: 05/18/18 16:27 Dose: 400 mg Escitalopram Oxalate (Lexapro) 10 mg PO DAILY [facility] Last Admin: 05/18/18 08:18 Dose: 10 mg Fenofibrate (Tricor) 145 mg PO DAILY [facility] Last Admin: 05/18/18 08:18 Dose: 145 mg Glucagon (Glucagon) 1 mg IM PRN PRN PRN Reason: Hypoglycemia Hydroxyzine HCl (Atarax) 25 mg PO HS [facility] Last Admin: 05/17/18 21:06 Dose: 25 mg Dextrose/Water (D5w) 1,000 mls @ 0 mls/hr IV .Q0M PRN PRN Reason: Hypoglycemia Insulin Human Regular (Humulin R) 0 units SC .MILD SLIDING SCALE PRN PRN Reason: Mild Correctional Scale Last Admin: 05/18/18 17:43 Dose: 6 unit Levothyroxine Sodium (Synthroid) 50 mcg PO 0600 [facility] Last Admin: 05/18/18 05:40 Dose: 50 mcg Metoprolol Tartrate (Lopressor) 100 mg PO BID [facility] Last Admin: 05/18/18 08:19 Dose: Not Given Rivaroxaban (Xarelto) 15 mg PO 1700 [facility] Last Admin: 05/18/18 16:27 Dose: 15 mg Tamsulosin HCl (Flomax) 0.4 mg PO DAILY [facility] Last Admin: 05/18/18 08:19 Dose: 0.4 mg
[2018-05-18] MEDS: hydrOXYzine 25 MG TAB PO SCH (21:40)
[2018-05-18] MEDS: ALPRAZolam 0.25 MG TAB PO PRN (21:40)
[2018-05-18] MEDS: Aspirin 81 mg Enteric Coated Tablet PO SCH (21:40)
[2018-05-18] MEDS: Insulin Regular 300 UNITS/3 ML VIAL SC PRN (21:47)
[2018-05-19 05:50] LABS: Anion Gap 15 mmol/L (10-20); BUN (Urea Nitrogen) 57 mg/dL (8.4-25.7); Calc. Creatinine Clearance 31 mL/min (70-130); Calcium 8.8 mg/dL (7.8-10.44); Carbon Dioxide 25 mmol/L (23-31); Chloride 100 mmol/L (98-107); Estimated GFR-MDRD 19; Glucose 76 mg/dL (83-110); Potassium 3.9 mmol/L (3.5-5.1); Sodium 136 mmol/L (136-145)
[2018-05-19] MEDS: Levothyroxine Sodium 50 MCG TAB PO SCH (06:03)
[2018-05-19] MEDS: Dronedarone HCl 400 MG TAB PO SCH ×2 (08:28→16:22)
[2018-05-19] MEDS: Escitalopram Oxalate 10 mg Tablet PO SCH (08:28)
[2018-05-19] MEDS: Fenofibrate Nanocrystallized 145 MG TAB PO SCH (08:28)
[2018-05-19] MEDS: Tamsulosin HCl 0.4 MG CAP PO SCH (08:28)
[2018-05-19] MEDS: Metoprolol Tartrate 100 MG TAB PO SCH (08:28)
[2018-05-19] MEDS ORDERED: Insulin Regular 300 UNITS/3 ML VIAL SC PRN (09:17)
[2018-05-19] MEDS: cefTRIAXone\\ROCEPHIN 1 GM in Sodium Chloride 0.9% 100 ML IVPB SCH (09:25)
[2018-05-19] MEDS: Doxycycline 100 MG CAP PO SCH ×2 (09:26→20:45)
--- NOTE | 2018-05-19 11:14 | PRG ---
DATE OF SERVICE: SUBJECTIVE: This is an 83-year-old gentleman, being seen for acute kidney injury. The patient denies any nausea, vomiting, or chest pain. OBJECTIVE: CONSTITUTIONAL: The patient is awake and alert. VITAL SIGNS: Afebrile, pulse 80, breathing 16, blood pressure 112/55. GENERAL APPEARANCE AND MENTAL STATUS: Fair. HEAD/NECK: Normocephalic. Atraumatic. EYES: EOMI. No deformity. EARS: Clear. No ulcers. NOSE: Intact. No lesions. MOUTH: Clear. No discharge. THROAT: Clear. No exudate. LUNGS: Clear. No crackles. CARDIAC: S1, S2. No rub. ABDOMEN: Benign. Bowel sounds positive. GENITALIA/RECTUM: Jiménez absent. BACK/EXTREMITIES: Edema 0+. NEUROLOGICAL: Alert and motor intact. SKIN: LYMPHATICS: LABORATORY DATA: Labs show hemoglobin 9.1. Creatinine 3.1. ASSESSMENT AND PLAN: 1. Chronic kidney disease, stage 4, stable. 2. Hypertension, stable. 3. Anemia, stable. 4. Congestive heart failure, stable. No indication for dialysis. Job ID: [id number]
[2018-05-19] MEDS ORDERED: Furosemide 100 MG in Sodium Chloride 0.9% 100 ML IVPB SCH (14:30)
[2018-05-19] MEDS: Rivaroxaban 15 MG TAB PO SCH (16:22)
[2018-05-19] MEDS: Insulin Regular 300 UNITS/3 ML VIAL SC PRN ×2 (18:39→20:54)
--- NOTE | 2018-05-19 18:41 | PRG ---
DATE OF SERVICE: 05/19/2018 SUBJECTIVE: The patient continues to have shortness of breath. He also complains of discomfort in the left upper extremity with erythema. He denies any fever, chills, chest pain, or palpitations. OBJECTIVE: VITAL SIGNS: Temperature 98.4, pulse rate of 80, respirations of 18, blood pressure 125/59 with O2 saturation 92% on room air. Weight of 271 pounds. Intake 970, output 975. GENERAL: An 83-year-old male sitting on the chair with mild respiratory distress, able to complete short phrases. LUNGS: Showed bibasilar rales with scattered rhonchi. No significant wheezing appreciated. There was minimal accessory muscle use. HEART: S1 and S2 present. Regular rate and rhythm. 2/6 systolic murmur over the mitral area. No heaves or pulsation. ABDOMEN: Soft and obese. Bowel sounds present. EXTREMITIES: There is some erythema along with warmth in the left upper extremity. There is 4+ edema in bilateral lower extremities. No calf tenderness noted. NEUROLOGY: Grossly nonfocal. Moves all 4 extremities. The patient is alert, awake, and oriented x3. LABORATORY FINDINGS: Telemetry monitoring by my review showed paced rhythm. Chest x-ray on admission showed cardiomegaly with left pleural effusion and pulmonary vascular congestion. MEDICATIONS: The patient is currently on 81 mg aspirin, 15 mg Xarelto, metoprolol 100 mg b.i.d., levothyroxine, fenofibrate, and Lexapro with Multaq. IMPRESSION: 1. Acute on chronic diastolic heart failure exacerbation. Diuretics on hold for last 2 days due to worsening renal function. 2. Acute kidney injury on chronic kidney disease stage 4. 3. Diabetes mellitus type 2. 4. Hypertension. 5. Obstructive sleep apnea, on continuous positive airway pressure. 6. Obesity with BMI of 36.8. 7. Pulmonary hypertension. 8. Chronic atrial fibrillation, on anticoagulation. 9. Chronic hypoxic respiratory failure on home oxygen. 10. Gout. 11. Hypothyroidism. 12. Sick sinus syndrome, status post pacemaker. 13. Left upper extremity cellulitis. PLAN: I discussed with Dr. Gutiérrez. Dr. Gutiérrez agreed with 2.5 mg/hour IV Lasix drip, which will be started. We will reduce metoprolol dose to facilitate diuresis. We will recheck labs in a.m. We will start him on IV ceftriaxone and doxycycline for left upper extremity cellulitis. Continue CPAP along with oxygen supplementation. Avoid nephrotoxic agent. Continue other home medications including Multaq and anticoagulation. DISPOSITION: Probably in 2 to 3 days with home health care. Plan was discussed with the patient and daughter at the bedside. They stated understanding. Job ID: [id number]
[2018-05-19] MEDS: Aspirin 81 mg Enteric Coated Tablet PO SCH (20:45)
[2018-05-19] MEDS: hydrOXYzine 25 MG TAB PO SCH (20:45)
[2018-05-19] MEDS: Metoprolol Tartrate 50 MG TAB PO SCH (21:03)
[2018-05-20] MEDS: Levothyroxine Sodium 50 MCG TAB PO SCH (05:25)
[2018-05-20 05:53] LABS: Platelet Count 169 thou/uL (130-400)
[2018-05-20 06:10] LABS: Anion Gap 14 mmol/L (10-20); BUN (Urea Nitrogen) 55 mg/dL (8.4-25.7); Calc. Creatinine Clearance 34 mL/min (70-130); Calcium 8.7 mg/dL (7.8-10.44); Carbon Dioxide 25 mmol/L (23-31); Chloride 100 mmol/L (98-107); Estimated GFR-MDRD 21; Glucose 119 mg/dL (83-110); Magnesium 2.4 mg/dL (1.6-2.6); Potassium 3.9 mmol/L (3.5-5.1); Sodium 135 mmol/L (136-145)
[2018-05-20] MEDS: Fenofibrate Nanocrystallized 145 MG TAB PO SCH (08:35)
[2018-05-20] MEDS: Dronedarone HCl 400 MG TAB PO SCH ×2 (08:35→17:35)
[2018-05-20] MEDS: Tamsulosin HCl 0.4 MG CAP PO SCH (08:35)
[2018-05-20] MEDS: Escitalopram Oxalate 10 mg Tablet PO SCH (08:35)
[2018-05-20] MEDS: Doxycycline 100 MG CAP PO SCH ×2 (08:35→08:48)
[2018-05-20] MEDS: cefTRIAXone\\ROCEPHIN 1 GM in Sodium Chloride 0.9% 100 ML IVPB SCH (08:38)
[2018-05-20] MEDS: Metoprolol Tartrate 50 MG TAB PO SCH ×3 (08:42→21:15)
--- NOTE | 2018-05-20 09:10 | PRG ---
DATE OF SERVICE: 05/20/2018 SUBJECTIVE: This is an 83-year-old gentleman, being seen for acute kidney injury. The patient denies any nausea, vomiting, or chest pain. OBJECTIVE: See above. Awake, alert, in no acute distress. VITAL SIGNS: Afebrile, pulse 80, breathing 16, blood pressure 101/53. GENERAL APPEARANCE AND MENTAL STATUS: Fair. HEAD/NECK: Normocephalic. Atraumatic. EYES: EOMI. No deformity. EARS: Clear. No ulcers. NOSE: Intact. No lesions. MOUTH: Clear. No discharge. THROAT: Clear. No exudate. LUNGS: Clear. No crackles. CARDIAC: S1, S2. No rub. ABDOMEN: Benign. Bowel sounds positive. GENITALIA/RECTUM: Jiménez absent. BACK/EXTREMITIES: Edema 0+. NEUROLOGICAL: Alert and motor intact. SKIN: LYMPHATICS: LABORATORY DATA: Labs show hemoglobin 9, creatinine 2.9. ASSESSMENT AND PLAN: 1. Acute kidney injury with chronic kidney disease due to cardiorenal syndrome, stable. 2. Hypertension, stable. 3. Anemia, stable. 4. Congestive heart failure. Agree with Lasix. 5. Medication based on GFR. I would avoid doxycycline as that can alter the CKD. Job ID: [id number]
--- NOTE | 2018-05-20 16:41 | PRG ---
DATE OF SERVICE: 05/20/2018 SUBJECTIVE: Mr. Ureña is seen walking in the halls. He states he feels better, but still short of breath. After reviewing his records, he had a previous sleep study in January 2018 and was found to have severe obstructive sleep apnea. As was present, who states he does use it fairly regularly, but in the middle of night does seem to take it off. He also underwent a noninvasive stress study in March 2018, which showed LVEF of 43% with lateral wall hypokinesis and no reversible ischemia. OBJECTIVE: VITAL SIGNS: Blood pressure 100/57, pulse 79, temperature 97.8. GENERAL: Patient is a pleasant 83-year-old, who is in no acute distress. The patient appears their stated age. NEUROLOGIC: The patient is alert and oriented x3 with no focal neurologic deficits. HEENT: Sclerae without icterus. Mouth has moist mucous membranes with normal pallor. NECK: No JVD. Carotid upstroke brisk. No bruits bilaterally. LUNGS: Clear to auscultation with unlabored respirations. BACK: No scoliosis or kyphosis. CARDIAC: Regular rate and rhythm with normal S1 and S2. No S3 or S4 noted. No significant rubs, murmurs, thrills, or gallops noted throughout the precordium. PMI is not displaced. There is no parasternal heave. ABDOMEN: Protuberant. EXTREMITIES: 2+ pitting edema. SKIN: No gross abnormalities. PERTINENT LABORATORY DATA: Hemoglobin 9.1, creatinine 2.93, sodium 135. IMPRESSION: 1. Shortness of breath. 2. Severe pulmonary hypertension. 3. Abnormal stress study with lateral wall ischemia. RECOMMENDATIONS: Again, at this point, his symptoms likely related to sleep apnea, renal insufficiency. He may have underlying coronary artery disease as a contributing factor. I discussed proceeding with coronary angiography, but at this point, does not seem appropriate. It would risk contrast nephropathy. decreased. His last echo suggested [id number] MR, which would not suggest a left-sided cause for pulmonary hypertension and more likely a right-sided cause. Otherwise, I have no further recommendations. Job ID: [id number]
[2018-05-20] MEDS: Rivaroxaban 15 MG TAB PO SCH (17:35)
[2018-05-20] MEDS: Insulin Regular 300 UNITS/3 ML VIAL SC PRN (18:28)
--- NOTE | 2018-05-20 20:43 | PDOC.PN ---
- Subjective Encounter Start Date: 05/20/18 Encounter Start Time: 10:00 Patient seen and examined for CHF. SOB +. No new complaints. No overnight events - Objective Resuscitation Status - Order Detail: 05/15/18 17:14 Resuscitation Status Routine Resuscitation Status: FULL: Full Resuscitation MAR Reviewed: Yes Vital Signs & Weight: Vital Signs (12 hours) Temp Pulse Pulse Pulse Resp BP BP 05/20/18 16:18 97.7 F 80 18 05/20/18 14:37 88 93 107/53 L 98/54 L 05/20/18 13:25 79 124/61 05/20/18 12:06 97.8 F 79 18 BP Pulse Ox Pulse Ox Pulse Ox 05/20/18 16:18 133/64 100 05/20/18 14:37 96 93 L 05/20/18 13:25 96 05/20/18 12:06 100/57 L 98 Weight Weight 275 lb 4.8 oz I&O: 05/19/18 05/20/18 05/21/18 06:59 06:59 06:59 Intake Total 970 281 960 Output Total 975 350 795 Balance -5 -69 165 Result Diagrams: 05/20/18 05:20 05/20/18 05:20 Additional Labs: Accuchecks 05/20/18 05/20/18 05/20/18 17:14 10:57 05:25 POC Glucose 250 H 229 H 154 H 05/19/18 20:17 POC Glucose 318 H EKG Reviewed by me: Yes (Tele paced) Phys Exam - Physical Examination Constitutional: NAD Respiratory: no wheezing, no rhonchi Rales at bases Cardiovascular: RRR, no rub Gastrointestinal: soft, non-tender, positive bowel sounds Musculoskeletal: edema present Dx/Plan (1) Acute on chronic diastolic ACC/AHA stage C congestive heart failure Code(s): I50.33 - ACUTE ON CHRONIC DIASTOLIC (CONGESTIVE) HEART FAILURE Status : Acute - Plan IMPRESSION: 1. Acute on chronic diastolic heart failure exacerbation. 2. Acute kidney injury on chronic kidney disease stage 4. 3. Diabetes mellitus type 2. 4. Hypertension. 5. Obstructive sleep apnea, on continuous positive airway pressure. 6. Obesity with BMI of 36.8. 7. Pulmonary hypertension. 8. Chronic atrial fibrillation, on anticoagulation. 9. Chronic hypoxic respiratory failure on home oxygen. 10. Gout. 11. Hypothyroidism. 12. Sick sinus syndrome, status post pacemaker. 13. Left upper extremity cellulitis. PLAN: DC Doxycycline per Nephrology Increase Lasix drip to 5 mg/hr (Nephrology ok with dose increase per RN) AM labs Cont fluid restriction Cont IV Atbx Cont sliding scale if sugar >250 Cont current meds as below Review of Systems - Review of Systems Respiratory: SOB with Excertion. negative: Cough, Dry, Shortness of Breath, Hemoptysis, Pleuritic Pain, Sputum, Wheezing Cardiovascular: edema. negative: chest pain, palpitations, orthopnea, paroxysmal nocturnal dyspnea, light headedness, other Gastrointestinal: negative: Nausea, Vomiting, Abdominal Pain, Diarrhea, Constipation, Melena, Hematochezia, Other - Medications/Allergies Allergies/Adverse Reactions: Allergies Allergy/AdvReac Type Severity Reaction Status Date / Time No Known Allergies Allergy Verified 04/10/18 03:12 Medications: Current Medications Acetaminophen (Tylenol) 650 mg PO Q6H PRN PRN Reason: Headache/Fever/Mild Pain (1-3) Alprazolam (Xanax) 0.25 mg PO QIDPRN PRN PRN Reason: Anxiety Last Admin: 05/18/18 21:40 Dose: 0.25 mg Aspirin (Ecotrin) 81 mg PO HS [facility] Last Admin: 05/19/18 20:45 Dose: 81 mg Dextrose/Water (Dextrose 50%) 25 gm SLOW IVP PRN PRN PRN Reason: Hypoglycemia Dronedarone (Multaq) 400 mg PO BID-[facility] Last Admin: 05/20/18 17:35 Dose: 400 mg Escitalopram Oxalate (Lexapro) 10 mg PO DAILY [facility] Last Admin: 05/20/18 08:35 Dose: 10 mg Fenofibrate (Tricor) 145 mg PO DAILY [facility] Last Admin: 05/20/18 08:35 Dose: 145 mg Glucagon (Glucagon) 1 mg IM PRN PRN PRN Reason: Hypoglycemia Hydroxyzine HCl (Atarax) 25 mg PO HS [facility] Last Admin: 05/19/18 20:45 Dose: 25 mg Dextrose/Water (D5w) 1,000 mls @ 0 mls/hr IV .Q0M PRN PRN Reason: Hypoglycemia Ceftriaxone Sodium 1 gm/ (Sodium Chloride) 100 mls @ 200 mls/hr IVPB Q24HR [facility] Last Admin: 05/20/18 08:38 Dose: 100 mls Furosemide 100 mg/ Sodium (Chloride) 110 mls @ 5.5 mls/hr IVPB INF [facility] Insulin Human Regular (Humulin R) 0 units SC .BEDTIME SLIDING SC PRN PRN Reason: Bedtime Correctional Scale Last Admin: 05/20/18 18:28 Dose: 2 unit Levothyroxine Sodium (Synthroid) 50 mcg PO 0600 [facility] Last Admin: 05/20/18 05:25 Dose: 50 mcg Metoprolol Tartrate (Lopressor) 50 mg PO BID [facility] Last Admin: 05/20/18 09:18 Dose: Not Given Rivaroxaban (Xarelto) 15 mg PO 1700 [facility] Last Admin: 05/20/18 17:35 Dose: 15 mg Tamsulosin HCl (Flomax) 0.4 mg PO DAILY [facility] Last Admin: 05/20/18 08:35 Dose: 0.4 mg
[2018-05-20] MEDS: hydrOXYzine 25 MG TAB PO SCH (21:15)
[2018-05-20] MEDS: Aspirin 81 mg Enteric Coated Tablet PO SCH (21:15)
[2018-05-20] MEDS: ALPRAZolam 0.25 MG TAB PO PRN (21:20)
[2018-05-20] MEDS: Furosemide 100 MG in Sodium Chloride 0.9% 100 ML IVPB SCH (21:21)
[2018-05-21] MEDS: Levothyroxine Sodium 50 MCG TAB PO SCH (05:29)
[2018-05-21 06:52] LABS: Anion Gap 13 mmol/L (10-20); BUN (Urea Nitrogen) 49 mg/dL (8.4-25.7); Calc. Creatinine Clearance 35 mL/min (70-130); Calcium 8.6 mg/dL (7.8-10.44); Carbon Dioxide 26 mmol/L (23-31); Chloride 102 mmol/L (98-107); Estimated GFR-MDRD 22; Glucose 123 mg/dL (83-110); Potassium 3.9 mmol/L (3.5-5.1); Sodium 137 mmol/L (136-145)
[2018-05-21] MEDS: Dronedarone HCl 400 MG TAB PO SCH ×2 (09:42→17:23)
[2018-05-21] MEDS: Metolazone 2.5 MG TAB PO SCH (09:42)
[2018-05-21] MEDS: Fenofibrate Nanocrystallized 145 MG TAB PO SCH (09:42)
[2018-05-21] MEDS: Metoprolol Tartrate 50 MG TAB PO SCH ×2 (09:42→20:49)
[2018-05-21] MEDS: Escitalopram Oxalate 10 mg Tablet PO SCH (09:42)
[2018-05-21] MEDS: Tamsulosin HCl 0.4 MG CAP PO SCH (09:42)
[2018-05-21] MEDS: cefTRIAXone\\ROCEPHIN 1 GM in Sodium Chloride 0.9% 100 ML IVPB SCH (09:46)
--- NOTE | 2018-05-21 11:56 | PDOC.CTH ---
Cardiology Progress Note - Subjective No overnight events. Good output. Weight down. Complains of difficulty sleeping due to different CPAP machine being used her vs home. - Objective Vital Signs Temp Pulse Resp BP Pulse Ox 05/21/18 07:35 99.3 F 82 20 122/64 97 05/21/18 04:00 98.5 F 80 20 133/59 L 95 05/20/18 23:56 80 20 99/55 L 92 L Weight 269 lb 05/20/18 05/21/18 05/22/18 06:59 06:59 06:59 Intake Total 281 1120 Output Total 350 1395 Balance -69 -275 - Physical Examination General/Neuro: alert & oriented x3 Neck: no JVD present Lungs: CTA Heart: RRR Abdomen: NT/ND Extremities: + edema B - Labs Result Diagrams: 05/20/18 05:20 05/21/18 05:57 Troponin/CKMB Troponin I 0.010 ng/mL (< 0.028) 05/15/18 21:53 - Assessment/Plan 1. Pulmonary HTN 2. CKD-4 3. NATALEE 4. HTN 5. AF 6. DM-II 7. Bradycardia s/p pacer Doing well in response to IV lasix. No changes to care from my standpoint. Suggested bringing CPAP from home if it would make him more comfortable.
--- NOTE | 2018-05-21 12:31 | PRG ---
DATE OF SERVICE: 05/21/2018 SUBJECTIVE: An 83-year-old gentleman being seen for acute kidney injury. The patient denies any nausea, vomiting, or chest pain. OBJECTIVE: CONSTITUTIONAL: On examination, the patient is awake, alert. VITAL SIGNS: Afebrile, pulse 82, breathing 16, and blood pressure 122/64. GENERAL APPEARANCE AND MENTAL STATUS: Fair. HEAD/NECK: Normocephalic. Atraumatic. EYES: EOMI. No deformity. EARS: Clear. No ulcers. NOSE: Intact. No lesions. MOUTH: Clear. No discharge. THROAT: Clear. No exudate. LUNGS: Clear. No crackles. CARDIAC: S1, S2. No rub. ABDOMEN: Benign. Bowel sounds positive. GENITALIA/RECTUM: Jiménez absent. BACK/EXTREMITIES: Edema 0+. NEUROLOGICAL: Alert and motor intact. LABORATORY DATA: Labs show hemoglobin 9. Creatinine 2.7. ASSESSMENT AND PLAN: 1. Chronic kidney disease, stage 4, stable. 2. Hypertension, stable. 3. Anemia, stable. No indication for dialysis. Job ID: [id number]
--- NOTE | 2018-05-21 13:29 | PDOC.PN ---
- Subjective Encounter Start Date: 05/21/18 Encounter Start Time: 08:30 Patient seen and examined for CHF/SRINI. SOB sligthly better. No new complaints. No overnight events - Objective Resuscitation Status - Order Detail: 05/15/18 17:14 Resuscitation Status Routine Resuscitation Status: FULL: Full Resuscitation MAR Reviewed: Yes Vital Signs & Weight: Vital Signs (12 hours) Temp Pulse Resp BP Pulse Ox 05/21/18 07:35 99.3 F 82 20 122/64 97 05/21/18 04:00 98.5 F 80 20 133/59 L 95 Weight Weight 269 lb I&O: 05/20/18 05/21/18 05/22/18 06:59 06:59 06:59 Intake Total 281 1120 Output Total 350 1395 Balance -69 -275 Result Diagrams: 05/20/18 05:20 05/21/18 05:57 Additional Labs: Accuchecks 05/21/18 05/21/18 05/20/18 11:01 06:01 23:42 POC Glucose 228 H 136 H 202 H 05/20/18 05/20/18 20:34 17:14 POC Glucose 282 H 250 H EKG Reviewed by me: Yes (Tele paced) Phys Exam - Physical Examination Constitutional: NAD Respiratory: no wheezing, no rhonchi Few rales at bases Cardiovascular: RRR, no rub Gastrointestinal: soft, non-tender, positive bowel sounds Musculoskeletal: edema present LUE erythema improving Neurological: moves all 4 limbs Dx/Plan - Plan IMPRESSION: 1. Acute on chronic diastolic heart failure exacerbation. - on Lasix drip 2. Acute kidney injury on chronic kidney disease stage 4. 3. Diabetes mellitus type 2. 4. Hypertension. 5. Obstructive sleep apnea, on continuous positive airway pressure. 6. Obesity with BMI of 36.8. 7. Pulmonary hypertension. 8. Chronic atrial fibrillation, on anticoagulation. 9. Chronic hypoxic respiratory failure on home oxygen. 10. Gout. 11. Hypothyroidism. 12. Sick sinus syndrome, status post pacemaker. 13. Left upper extremity cellulitis. improving PLAN: Cont Lasix drip @ 5 mg/hr Metolazone added per Cardiology AM labs Change Atbx to PO Cont sliding scale if sugar >250 Cont current meds as below Review of Systems - Review of Systems Respiratory: SOB with Excertion. negative: Cough, Dry, Shortness of Breath, Hemoptysis, Pleuritic Pain, Sputum, Wheezing Cardiovascular: edema. negative: chest pain, palpitations, orthopnea, paroxysmal nocturnal dyspnea, light headedness, other Gastrointestinal: negative: Nausea, Vomiting, Abdominal Pain, Diarrhea, Constipation, Melena, Hematochezia, Other - Medications/Allergies Allergies/Adverse Reactions: Allergies Allergy/AdvReac Type Severity Reaction Status Date / Time No Known Allergies Allergy Verified 04/10/18 03:12 Medications: Current Medications Acetaminophen (Tylenol) 650 mg PO Q6H PRN PRN Reason: Headache/Fever/Mild Pain (1-3) Alprazolam (Xanax) 0.25 mg PO QIDPRN PRN PRN Reason: Anxiety Last Admin: 05/20/18 21:20 Dose: 0.25 mg Aspirin (Ecotrin) 81 mg PO [facility] Last Admin: 05/20/18 21:15 Dose: 81 mg Dextrose/Water (Dextrose 50%) 25 gm SLOW IVP PRN PRN PRN Reason: Hypoglycemia Dronedarone (Multaq) 400 mg PO BID-[facility] Last Admin: 05/21/18 09:42 Dose: 400 mg Escitalopram Oxalate (Lexapro) 10 mg PO DAILY [facility] Last Admin: 05/21/18 09:42 Dose: 10 mg Fenofibrate (Tricor) 145 mg PO DAILY [facility] Last Admin: 05/21/18 09:42 Dose: 145 mg Glucagon (Glucagon) 1 mg IM PRN PRN PRN Reason: Hypoglycemia Hydroxyzine HCl (Atarax) 25 mg PO [facility] Last Admin: 05/20/18 21:15 Dose: 25 mg Dextrose/Water (D5w) 1,000 mls @ 0 mls/hr IV .Q0M PRN PRN Reason: Hypoglycemia Ceftriaxone Sodium 1 gm/ (Sodium Chloride) 100 mls @ 200 mls/hr IVPB Q24HR [facility] Last Admin: 05/21/18 09:46 Dose: 100 mls Furosemide 100 mg/ Sodium (Chloride) 110 mls @ 5.5 mls/hr IVPB INF [facility] Last Admin: 05/20/18 21:21 Dose: 110 mls Insulin Human Regular (Humulin R) 0 units SC .BEDTIME SLIDING SC PRN PRN Reason: Bedtime Correctional Scale Last Admin: 05/20/18 18:28 Dose: 2 unit Levothyroxine Sodium (Synthroid) 50 mcg PO 0600 [facility] Last Admin: 05/21/18 05:29 Dose: 50 mcg Metolazone (Zaroxolyn) 2.5 mg PO 0830 [facility] Last Admin: 05/21/18 09:42 Dose: 2.5 mg Metoprolol Tartrate (Lopressor) 50 mg PO BID [facility] Last Admin: 05/21/18 09:42 Dose: 50 mg Rivaroxaban (Xarelto) 15 mg PO 1700 [facility] Last Admin: 05/20/18 17:35 Dose: 15 mg Tamsulosin HCl (Flomax) 0.4 mg PO DAILY [facility] Last Admin: 05/21/18 09:42 Dose: 0.4 mg
[2018-05-21] MEDS: Rivaroxaban 15 MG TAB PO SCH (17:23)
[2018-05-21] MEDS: Insulin Regular 300 UNITS/3 ML VIAL SC PRN (17:25)
[2018-05-21] MEDS: Aspirin 81 mg Enteric Coated Tablet PO SCH (20:48)
[2018-05-21] MEDS: Senokot S 8.6-50 MG TAB PO SCH (20:48)
[2018-05-21] MEDS: hydrOXYzine 25 MG TAB PO SCH (20:48)
[2018-05-21] MEDS: ALPRAZolam 0.25 MG TAB PO PRN (20:49)
[2018-05-21] MEDS: Furosemide 100 MG in Sodium Chloride 0.9% 100 ML IVPB SCH (23:22)
[2018-05-22] MEDS: Levothyroxine Sodium 50 MCG TAB PO SCH (05:35)
[2018-05-22 06:18] LABS: Hemoglobin 9.5 g/dL (14.0-18.0); Platelet Count 206 thou/uL (130-400)
[2018-05-22 06:36] LABS: Anion Gap 16 mmol/L (10-20); BUN (Urea Nitrogen) 48 mg/dL (8.4-25.7); Calc. Creatinine Clearance 35 mL/min (70-130); Calcium 8.8 mg/dL (7.8-10.44); Carbon Dioxide 26 mmol/L (23-31); Chloride 100 mmol/L (98-107); Estimated GFR-MDRD 23; Glucose 111 mg/dL (83-110); Magnesium 2.3 mg/dL (1.6-2.6); Potassium 3.7 mmol/L (3.5-5.1)
[2018-05-22 07:14] LABS: Sodium 139 mmol/L (136-145)
[2018-05-22] MEDS: Dronedarone HCl 400 MG TAB PO SCH ×2 (07:54→18:52)
[2018-05-22] MEDS: Metolazone 2.5 MG TAB PO SCH (07:55)
[2018-05-22] MEDS: Tamsulosin HCl 0.4 MG CAP PO SCH (08:00)
[2018-05-22] MEDS: Polyethylene Glycol 3350 17 GM Packet PO SCH (08:00)
[2018-05-22] MEDS: Senokot S 8.6-50 MG TAB PO SCH ×2 (08:00→20:34)
[2018-05-22] MEDS: Fenofibrate Nanocrystallized 145 MG TAB PO SCH (08:00)
[2018-05-22] MEDS: Escitalopram Oxalate 10 mg Tablet PO SCH (08:00)
[2018-05-22] MEDS: Metoprolol Tartrate 50 MG TAB PO SCH ×2 (08:01→20:34)
[2018-05-22] MEDS: cefTRIAXone\\ROCEPHIN 1 GM in Sodium Chloride 0.9% 100 ML IVPB SCH (09:52)
--- NOTE | 2018-05-22 09:57 | PDOC.CTH ---
Cardiology Progress Note - Subjective No overnight events. still diuresing and with weight loss. Still c/o restless and SOB/KEYES. - Objective Vital Signs Temp Pulse Resp BP BP Pulse Ox 05/22/18 07:46 97.7 F 84 21 H 109/53 L 95 05/22/18 03:46 97.6 F 81 15 119/56 L 93 L 05/22/18 01:13 79 16 94 L Weight 263 lb 6 oz 05/21/18 05/22/18 05/23/18 06:59 06:59 06:59 Intake Total 1120 1060 Output Total 1395 2715 Balance -071 -7820 - Physical Examination General/Neuro: alert & oriented x3 Neck: no JVD present Lungs: CTA Heart: RRR Abdomen: soft - Telemetry Telemetry Rhythm: Paced - Labs Result Diagrams: 05/22/18 06:00 05/22/18 06:00 Troponin/CKMB Troponin I 0.010 ng/mL (< 0.028) 05/15/18 21:53 - Assessment/Plan 1. Pulmonary HTN 2. CKD-4 3. NATALEE 4. HTN 5. AF 6. DM-II 7. Bradycardia s/p pacer More euvolemic. Baseline Cr from Fall 2017 2.3 to 2.6. Will discuss timing of discharge with Dr. Palafox and nephrology team. Addendum 1330: after speaking with Dr. Palafox will d/c terry and d/c tele. Start discharge planning.
--- NOTE | 2018-05-22 11:59 | PRG ---
DATE OF SERVICE: 05/22/2018 SUBJECTIVE: An 83-year-old gentleman being seen for acute kidney injury. The patient denies any nausea, vomiting, or chest pain. OBJECTIVE: See above. Awake, alert, in no acute distress. VITAL SIGNS: Afebrile, pulse 84, breathing 16, blood pressure 119/56. GENERAL APPEARANCE AND MENTAL STATUS: Fair. HEAD/NECK: Normocephalic. Atraumatic. EYES: EOMI. No deformity. EARS: Clear. No ulcers. NOSE: Intact. No lesions. MOUTH: Clear. No discharge. THROAT: Clear. No exudate. LUNGS: Clear. No crackles. CARDIAC: S1, S2. No rub. ABDOMEN: Benign. Bowel sounds positive. GENITALIA/RECTUM: Jiménez absent. BACK/EXTREMITIES: Edema 0+. NEUROLOGICAL: Alert and motor intact. SKIN: LYMPHATICS: LABORATORY DATA: Lab show hemoglobin is 9.5, creatinine 2.6. ASSESSMENT AND PLAN: 1. Chronic kidney disease, stage 4, stable. 2. Acute kidney injury, improved. 3. Congestive heart failure, stable. 4. Anemia, stable. 5. Medication based on GFR appropriate. No indication for dialysis. Job ID: [id number]
[2018-05-22] MEDS: Rivaroxaban 15 MG TAB PO SCH (18:52)
--- NOTE | 2018-05-22 20:24 | PDOC.PN ---
- Subjective Encounter Start Date: 05/22/18 Encounter Start Time: 12:00 Patient seen and examined for CHF. SOB improving. No new complaints. No overnight events - Objective Resuscitation Status - Order Detail: 05/15/18 17:14 Resuscitation Status Routine Resuscitation Status: FULL: Full Resuscitation MAR Reviewed: Yes Vital Signs & Weight: Vital Signs (12 hours) Temp Pulse Resp BP Pulse Ox 05/22/18 15:55 97.8 F 80 18 103/53 L 100 05/22/18 12:30 97.8 F 80 18 109/56 L 97 Weight Weight 263 lb 6 oz I&O: 05/21/18 05/22/18 05/23/18 06:59 06:59 06:59 Intake Total 1120 1060 600 Output Total 1392 4555 4147 Balance -397 -8615 -0319 Result Diagrams: 05/22/18 06:00 05/22/18 06:00 Additional Labs: Accuchecks 05/22/18 05/22/18 05/22/18 16:52 11:18 06:04 POC Glucose 237 H 195 H 112 H 05/21/18 20:16 POC Glucose 203 H Phys Exam - Physical Examination Constitutional: NAD Respiratory: no wheezing, no rhonchi Cardiovascular: RRR, no rub Gastrointestinal: soft, positive bowel sounds Musculoskeletal: edema present Neurological: non-focal Dx/Plan - Plan IMPRESSION: 1. Acute on chronic diastolic heart failure exacerbation. 2. Acute kidney injury on chronic kidney disease stage 4. 3. Diabetes mellitus type 2. 4. Hypertension. 5. Obstructive sleep apnea, on continuous positive airway pressure. 6. Obesity with BMI of 36.8. 7. Pulmonary hypertension. 8. Chronic atrial fibrillation, on anticoagulation. 9. Chronic hypoxic respiratory failure on home oxygen. 10. Gout. 11. Hypothyroidism. 12. Sick sinus syndrome, status post pacemaker. 13. Left upper extremity cellulitis. improving PLAN: Metolazone dced AM labs DC IV Ceftriaxone Start PO Keflex Cont sliding scale if sugar >250 Cont current meds as below Cont Lasix drip @ 5 mg/hr Review of Systems - Review of Systems Respiratory: negative: Cough, Dry, Shortness of Breath, Hemoptysis, SOB with Excertion, Pleuritic Pain, Sputum, Wheezing Cardiovascular: edema. negative: chest pain, palpitations, orthopnea, paroxysmal nocturnal dyspnea, light headedness, other - Medications/Allergies Allergies/Adverse Reactions: Allergies Allergy/AdvReac Type Severity Reaction Status Date / Time No Known Allergies Allergy Verified 04/10/18 03:12 Medications: Current Medications Acetaminophen (Tylenol) 650 mg PO Q6H PRN PRN Reason: Headache/Fever/Mild Pain (1-3) Alprazolam (Xanax) 0.25 mg PO QIDPRN PRN PRN Reason: Anxiety Last Admin: 05/21/18 20:49 Dose: 0.25 mg Aspirin (Ecotrin) 81 mg PO [facility] Last Admin: 05/21/18 20:48 Dose: 81 mg Cephalexin (Keflex) 250 mg PO TID [facility] Dextrose/Water (Dextrose 50%) 25 gm SLOW IVP PRN PRN PRN Reason: Hypoglycemia Dronedarone (Multaq) 400 mg PO BID-[facility] Last Admin: 05/22/18 18:52 Dose: 400 mg Escitalopram Oxalate (Lexapro) 10 mg PO DAILY [facility] Last Admin: 05/22/18 08:00 Dose: 10 mg Fenofibrate (Tricor) 145 mg PO DAILY [facility] Last Admin: 05/22/18 08:00 Dose: 145 mg Glucagon (Glucagon) 1 mg IM PRN PRN PRN Reason: Hypoglycemia Hydroxyzine HCl (Atarax) 25 mg PO [facility] Last Admin: 05/21/18 20:48 Dose: 25 mg Dextrose/Water (D5w) 1,000 mls @ 0 mls/hr IV .Q0M PRN PRN Reason: Hypoglycemia Furosemide 100 mg/ Sodium (Chloride) 100 mls @ 5 mls/hr IVPB INF [facility] Insulin Human Regular (Humulin R) 0 units SC .BEDTIME SLIDING SC PRN PRN Reason: Bedtime Correctional Scale Last Admin: 05/21/18 17:25 Dose: 3 unit Levothyroxine Sodium (Synthroid) 50 mcg PO 0600 [facility] Last Admin: 05/22/18 05:35 Dose: 50 mcg Metoprolol Tartrate (Lopressor) 50 mg PO BID [facility] Last Admin: 05/22/18 08:01 Dose: Not Given Polyethylene Glycol (Miralax) 17 gm PO DAILY [facility] Last Admin: 05/22/18 08:00 Dose: 17 gm Rivaroxaban (Xarelto) 15 mg PO 1700 [facility] Last Admin: 05/22/18 18:52 Dose: 15 mg Senna/Docusate Sodium (Senokot S) 1 tab PO BID [facility] Last Admin: 05/22/18 08:00 Dose: 1 tab Tamsulosin HCl (Flomax) 0.4 mg PO DAILY [facility] Last Admin: 05/22/18 08:00 Dose: 0.4 mg
[2018-05-22] MEDS: Furosemide 100 MG in Sodium Chloride 0.9% 90 ML IVPB SCH (20:35)
[2018-05-22] MEDS: ALPRAZolam 0.25 MG TAB PO PRN (20:35)
[2018-05-22] MEDS: Aspirin 81 mg Enteric Coated Tablet PO SCH (20:35)
[2018-05-22] MEDS: hydrOXYzine 25 MG TAB PO SCH (20:35)
[2018-05-22] MEDS: Cephalexin 250 MG CAP PO SCH (20:40)
[2018-05-23 05:31] LABS: Anion Gap 16 mmol/L (10-20); BUN (Urea Nitrogen) 48 mg/dL (8.4-25.7); Calc. Creatinine Clearance 36 mL/min (70-130); Carbon Dioxide 27 mmol/L (23-31); Chloride 97 mmol/L (98-107); Estimated GFR-MDRD 24; Glucose 116 mg/dL (83-110); Magnesium 2.3 mg/dL (1.6-2.6); Potassium 3.6 mmol/L (3.5-5.1); Sodium 136 mmol/L (136-145)
[2018-05-23] MEDS: Levothyroxine Sodium 50 MCG TAB PO SCH (06:03)
[2018-05-23] MEDS: Cephalexin 250 MG CAP PO SCH ×3 (08:10→20:14)
[2018-05-23] MEDS: Dronedarone HCl 400 MG TAB PO SCH ×2 (08:10→17:24)
[2018-05-23] MEDS: Fenofibrate Nanocrystallized 145 MG TAB PO SCH (08:10)
[2018-05-23] MEDS: Tamsulosin HCl 0.4 MG CAP PO SCH (08:10)
[2018-05-23] MEDS: Senokot S 8.6-50 MG TAB PO SCH ×2 (08:11→20:14)
[2018-05-23] MEDS: Metoprolol Tartrate 50 MG TAB PO SCH ×2 (08:11→20:13)
[2018-05-23] MEDS: Escitalopram Oxalate 10 mg Tablet PO SCH (08:11)
[2018-05-23] MEDS: Polyethylene Glycol 3350 17 GM Packet PO SCH (08:12)
--- NOTE | 2018-05-23 10:29 | PRG ---
DATE OF SERVICE: 05/23/2018 SUBJECTIVE: Patient was seen and examined at bedside and overnight events noted. Patient denies any shortness of breath or chest pain or palpitation. No history of nausea or vomiting or diarrhea or fever or chills or cramps. OBJECTIVE: GENERAL: This is an obese male, in no apparent distress. VITAL SIGNS: Temperature 97.9, heart rate 79, respiratory rate 18, blood pressure 108/65. HEENT: Atraumatic, normocephalic. Oral mucosa is moist NECK: Supple. CARDIOVASCULAR: S1, S2 heard. Rate and rhythm regular. RESPIRATORY: Clear to auscultation. GASTROINTESTINAL: Abdomen is soft. MUSCULOSKELETAL: No tenderness. No edema. DERMATOLOGIC: No skin rash. NEUROLOGIC: Alert and awake and oriented X3. No focal neurologic deficits. Moving all the extremities. PSYCHIATRIC: Mood and affect normal. LABORATORY DATA: Potassium 3.6, BUN is 48, creatinine is 2.6. ASSESSMENT AND PLAN: 1. Acute kidney injury on chronic kidney disease, stage 4. Renal function seems to stable, no signs of cardiorenal syndrome, on Lasix drips, follow with Cardiology. Agree with holding metolazone. The patient had good urine output. 2. Anemia, monitor. 3. Edema. 4. Fluid overload. 5. Continue on diuretics, monitor renal function, which is getting better. We will follow. Metolazone stopped. Job ID: [id number]
[2018-05-23] MEDS: ALPRAZolam 0.25 MG TAB PO PRN (15:33)
[2018-05-23] MEDS: Rivaroxaban 15 MG TAB PO SCH (17:24)
[2018-05-23] MEDS: Aspirin 81 mg Enteric Coated Tablet PO SCH (20:13)
[2018-05-23] MEDS: hydrOXYzine 25 MG TAB PO SCH (20:14)
[2018-05-23] MEDS: Furosemide 100 MG in Sodium Chloride 0.9% 90 ML IVPB SCH (20:14)
--- NOTE | 2018-05-23 21:28 | PDOC.PN ---
- Subjective Encounter Start Date: 05/23/18 Encounter Start Time: 09:45 Patient seen and examined for CHF. SOB improving. No new complaints. No overnight events - Objective Resuscitation Status - Order Detail: 05/15/18 17:14 Resuscitation Status Routine Resuscitation Status: FULL: Full Resuscitation MAR Reviewed: Yes Vital Signs & Weight: Vital Signs (12 hours) Temp Pulse Resp BP BP Pulse Ox 05/23/18 20:00 97.6 F 80 18 122/61 93 L 05/23/18 15:33 97.4 F L 80 20 130/64 91 L 05/23/18 12:00 98 F 79 20 117/70 97 Weight Weight 256 lb 4 oz I&O: 05/22/18 05/23/18 05/24/18 06:59 06:59 06:59 Intake Total 1060 1140 763 Output Total 2505 5565 1950 [facility] -[id number] [id number] [id number] Result Diagrams: 05/22/18 06:00 05/23/18 04:34 Additional Labs: Accuchecks 05/23/18 05/23/18 05/23/18 19:22 15:29 11:36 POC Glucose 301 H 221 H 146 H 05/23/18 06:04 POC Glucose 115 H Phys Exam - Physical Examination Constitutional: NAD Respiratory: no wheezing, no rhonchi few rales at bases Cardiovascular: RRR, no rub Gastrointestinal: soft, positive bowel sounds Musculoskeletal: edema present Neurological: moves all 4 limbs Dx/Plan - Plan IMPRESSION: 1. Acute on chronic diastolic heart failure exacerbation. 2. Acute kidney injury on chronic kidney disease stage 4. 3. Diabetes mellitus type 2. 4. Hypertension. 5. Obstructive sleep apnea, on continuous positive airway pressure. 6. Obesity with BMI of 36.8. 7. Pulmonary hypertension. 8. Chronic atrial fibrillation, on anticoagulation. 9. Chronic hypoxic respiratory failure on home oxygen. 10. Gout. 11. Hypothyroidism. 12. Sick sinus syndrome, status post pacemaker. 13. Left upper extremity cellulitis. improving PLAN: Cont Lasix drip AM labs Cont PO Keflex Cont sliding scale if sugar >250 Cont other meds as below Cont fluid rest Review of Systems - Review of Systems Respiratory: SOB with Excertion. negative: Cough, Dry, Shortness of Breath, Hemoptysis, Pleuritic Pain, Sputum, Wheezing Cardiovascular: edema. negative: chest pain, palpitations, orthopnea, paroxysmal nocturnal dyspnea, light headedness, other - Medications/Allergies Allergies/Adverse Reactions: Allergies Allergy/AdvReac Type Severity Reaction Status Date / Time No Known Allergies Allergy Verified 04/10/18 03:12 Medications: Current Medications Acetaminophen (Tylenol) 650 mg PO Q6H PRN PRN Reason: Headache/Fever/Mild Pain (1-3) Alprazolam (Xanax) 0.25 mg PO QIDPRN PRN PRN Reason: Anxiety Last Admin: 05/23/18 15:33 Dose: 0.25 mg Aspirin (Ecotrin) 81 mg PO [facility] Last Admin: 05/23/18 20:13 Dose: 81 mg Cephalexin (Keflex) 250 mg PO TID [facility] Last Admin: 05/23/18 20:14 Dose: 250 mg Dextrose/Water (Dextrose 50%) 25 gm SLOW IVP PRN PRN PRN Reason: Hypoglycemia Dronedarone (Multaq) 400 mg PO BID-[facility] Last Admin: 05/23/18 17:24 Dose: 400 mg Escitalopram Oxalate (Lexapro) 10 mg PO DAILY [facility] Last Admin: 05/23/18 08:11 Dose: 10 mg Fenofibrate (Tricor) 145 mg PO DAILY [facility] Last Admin: 05/23/18 08:10 Dose: 145 mg Glucagon (Glucagon) 1 mg IM PRN PRN PRN Reason: Hypoglycemia Hydroxyzine HCl (Atarax) 25 mg PO [facility] Last Admin: 05/23/18 20:14 Dose: 25 mg Dextrose/Water (D5w) 1,000 mls @ 0 mls/hr IV .Q0M PRN PRN Reason: Hypoglycemia Furosemide 100 mg/ Sodium (Chloride) 100 mls @ 5 mls/hr IVPB INF [facility] Last Admin: 05/23/18 20:14 Dose: 100 mls Insulin Human Regular (Humulin R) 0 units SC .BEDTIME SLIDING SC PRN PRN Reason: Bedtime Correctional Scale Last Admin: 05/21/18 17:25 Dose: 3 unit Levothyroxine Sodium (Synthroid) 50 mcg PO 0600 [facility] Last Admin: 05/23/18 06:03 Dose: 50 mcg Metoprolol Tartrate (Lopressor) 50 mg PO BID [facility] Last Admin: 05/23/18 20:13 Dose: 50 mg Polyethylene Glycol (Miralax) 17 gm PO DAILY [facility] Last Admin: 05/23/18 08:12 Dose: 17 gm Rivaroxaban (Xarelto) 15 mg PO 1700 [facility] Last Admin: 05/23/18 17:24 Dose: 15 mg Senna/Docusate Sodium (Senokot S) 1 tab PO BID [facility] Last Admin: 05/23/18 20:14 Dose: 1 tab Tamsulosin HCl (Flomax) 0.4 mg PO DAILY [facility] Last Admin: 05/23/18 08:10 Dose: 0.4 mg
[2018-05-24] MEDS: Levothyroxine Sodium 50 MCG TAB PO SCH (05:19)
[2018-05-24 06:44] LABS: Hemoglobin 9.2 g/dL (14.0-18.0); Platelet Count 211 thou/uL (130-400)
[2018-05-24 07:04] LABS: Anion Gap 13 mmol/L (10-20); BUN (Urea Nitrogen) 46 mg/dL (8.4-25.7); Calc. Creatinine Clearance 34 mL/min (70-130); Calcium 9.5 mg/dL (7.8-10.44); Carbon Dioxide 34 mmol/L (23-31); Chloride 92 mmol/L (98-107); Estimated GFR-MDRD 23; Glucose 113 mg/dL (83-110); Magnesium 2.4 mg/dL (1.6-2.6); Sodium 136 mmol/L (136-145)
[2018-05-24] MEDS: Fenofibrate Nanocrystallized 145 MG TAB PO SCH (08:38)
[2018-05-24] MEDS: Polyethylene Glycol 3350 17 GM Packet PO SCH (08:38)
[2018-05-24] MEDS: Dronedarone HCl 400 MG TAB PO SCH ×2 (08:38→16:55)
[2018-05-24] MEDS: Senokot S 8.6-50 MG TAB PO SCH (08:39)
[2018-05-24] MEDS: Escitalopram Oxalate 10 mg Tablet PO SCH (08:39)
[2018-05-24] MEDS: Tamsulosin HCl 0.4 MG CAP PO SCH (08:39)
[2018-05-24] MEDS: Cephalexin 250 MG CAP PO SCH ×2 (08:39→14:01)
[2018-05-24] MEDS: Metoprolol Tartrate 50 MG TAB PO SCH (08:39)
[2018-05-24] MEDS ORDERED: Potassium Chloride 20 MEQ TAB PO SCH ×2 (09:00→17:00)
[2018-05-24] MEDS ORDERED: Furosemide 100 MG in Sodium Chloride 0.9% 90 ML IVPB SCH (09:06)
[2018-05-24] MEDS ORDERED: Furosemide 40 MG TAB PO SCH (14:00)
--- NOTE | 2018-05-24 15:13 | PRG ---
DATE OF SERVICE: 05/24/2018 SUBJECTIVE: Patient was seen and examined at bedside and overnight events noted. Patient denies any shortness of breath or chest pain or palpitation. No history of nausea or vomiting or diarrhea or fever or chills or cramps. OBJECTIVE: GENERAL: This is an obese male, in no apparent distress. VITAL SIGNS: Temperature 99.5, heart rate 97, respiratory rate 18, and blood pressure 137/73. HEENT: Atraumatic, normocephalic. Oral mucosa is moist NECK: Supple. CARDIOVASCULAR: S1, S2 heard. Rate and rhythm regular. RESPIRATORY: Clear to auscultation. GASTROINTESTINAL: Abdomen is soft. MUSCULOSKELETAL: No tenderness. No edema. DERMATOLOGIC: No skin rash. NEUROLOGIC: Alert and awake and oriented X3. No focal neurologic deficits. Moving all the extremities. PSYCHIATRIC: Mood and affect normal. LABORATORY DATA: Potassium is 3.0, BUN is 46, and creatinine is 2.6. I's and O's were negative, 3.4 L. ASSESSMENT AND PLAN: 1. Acute kidney injury on chronic kidney disease, stage 4. Renal function is stable. He had good diuresis, okay stopping Lasix drip and to switch him to home dose of oral Lasix. 2. Anemia, monitor. 3. Edema. 4. Fluid overload. 5. Cardiorenal syndrome. 6. Hypertension, stable. 7. Hypokalemia, replace potassium. 8. Switch to oral Lasix and monitor potassium and mag level. If the patient is going home, follow with Dr. Gutiérrez in 1 week. Job ID: [id number]
[2018-05-24 16:55] VITALS: BP 126/63; TEMP 97.8
[2018-05-24] MEDS: Rivaroxaban 15 MG TAB PO SCH (16:55)
--- NOTE | 2018-05-24 18:00 | DIS ---
DATE OF ADMISSION: 05/15/2018 DATE OF DISCHARGE: 05/24/2018 DISCHARGE DISPOSITION: Swing Bed in [facility]. The patient was seen and examined on the day of discharge. Denies any new complaints. Shortness of breath has significantly improved. Weight on the day of discharge is 248 pounds from 274 pounds. DISCHARGE MEDICATIONS: 1. Metoprolol 50 mg b.i.d. 2. MiraLAX 17 g daily. 3. Potassium chloride 20 mEq daily. 4. Senokot-S one tablet b.i.d. 5. Ferrous sulfate 325 mg b.i.d. 6. Keflex 250 mg 3 times daily or next 5 more days. 7. Flomax 0.4 mg daily. 8. Xarelto 15 mg daily. 9. Levothyroxine 50 mcg daily. 10. Insulin sliding scale. 11. Hydroxyzine 25 mg at bedtime. 12. Fenofibric acid 135 mg at bedtime. 13. Lexapro 10 mg at bedtime. 14. Multaq 400 mg b.i.d. 15. Cetrizine 10 mg daily. 16. Aspirin 81 mg daily. 17. Xanax as needed. INPATIENT INCOME TAX ANALYST: 1. Cardiology, Dr. Palafox. 2. Nephrology, Dr. Fan/Dr. Gutiérrez. BRIEF HOSPITAL COURSE: The patient is an 83-year-old male with chronic diastolic heart failure, diabetes mellitus type 2, hypertension, and CKD stage 4, presented to the hospital with worsening shortness of breath and anasarca. Please refer to the history and physical dated May 15, 2018, for further details. The patient was admitted to the hospital with a diagnosis of [id number] diastolic heart failure exacerbation along with acute kidney injury on chronic kidney disease stage 4. The patient was evaluated by Cardiology as well as Nephrology. He was started on IV Lasix with some worsening of his creatinine. He remained off Lasix for at least 48 hours. After that, he was started on Lasix drip along with metolazone with good response. His weight on the day of discharge is 248 pounds from 274 pounds. He was extensively counseled on congestive heart failure and fluid restriction. He appears stable for discharge. Total time coordinating the discharge of this patient was 36 minute. FINAL DIAGNOSES: 1. [id number] diastolic heart failure exacerbation. 2. Acute kidney injury on chronic kidney disease, stage 4. 3. Diabetes mellitus, type 2. 4. Hypertension. 5. Obstructive sleep apnea, on CPAP. 6. Obesity with a BMI of 36.8. 7. Pulmonary hypertension. 8. Chronic atrial fibrillation, on anticoagulation. 9. Sick sinus syndrome, status post pacemaker. 10. Left upper extremity cellulitis, on Keflex for another five days. 11. Hypothyroidism. 12. Gout. 13. Chronic hypoxic respiratory failure, on home oxygen. Job ID: [id number]
[2018-05-25] MEDS ORDERED: Potassium Chloride 20 MEQ TAB PO SCH (08:00)
== END 2018-05-24 17:09 | disposition swing bed (61) | DRG 291 ==
LOC: ERS 15:21 → ERHOLD 16:55 → 2NO 21:33 → T4-A 05-22 17:16
PROVIDERS: ADMIT Family Medicine; ATTEND Family Medicine
DX: I13.0 Hypertensive heart and chronic kidney disease with heart failure and stage 1 through stage 4 chronic kidney disease, or unspecified chronic kidney disease (principal); I50.33 Acute on chronic diastolic (congestive) heart failure; N17.9 Acute kidney failure, unspecified; E87.1 Hypo-osmolality and hyponatremia; N18.4 Chronic kidney disease, stage 4 (severe); L03.114 Cellulitis of left upper limb; J96.11 Chronic respiratory failure with hypoxia; E11.22 Type 2 diabetes mellitus with diabetic chronic kidney disease; G47.33 Obstructive sleep apnea (adult) (pediatric); M10.9 Gout, unspecified; E03.9 Hypothyroidism, unspecified; I48.2 Chronic atrial fibrillation; R91.8 Other nonspecific abnormal finding of lung field; D64.9 Anemia, unspecified; I49.5 Sick sinus syndrome; Z68.36 Body mass index [BMI] 36.0-36.9, adult; I27.20 Pulmonary hypertension, unspecified; Z99.81 Dependence on supplemental oxygen; Z79.4 Long term (current) use of insulin; Z79.01 Long term (current) use of anticoagulants; Z79.82 Long term (current) use of aspirin; Z87.891 Personal history of nicotine dependence; Z95.0 Presence of cardiac pacemaker
CPT/HCPCS: 36415; 36416; 71045; 80048; 80053; 82533; 83735; 83880; 84484; 85014; 85018; 85025; 85049; 93005; 93798; 94660; 94760; J0696; J1815; J1940; J7050